=== PATIENT | female | born 1940 | race Caucasian/White ===

== ENCOUNTER 2017-11-26 11:23 | Inpatient (IN) | payer OTHER, MEDICARE ==
[2017-11-26] VITALS (7 sets, daily range): BP systolic 120–251; BP diastolic 57–117; PULSE 60–66; RESP 16–20; TEMP 97.3–97.9; O2SAT 97–100
[~2017-11-26] VITALS: Ht 152.4 cm; Wt 66.0 kg
[2017-11-26] MEDS ORDERED: IOHEXOL 350 MG/ML 10 ML VIAL (for RAD DIAG) IVCONTRAST ONE (11:24)
--- NOTE | 2017-11-26 12:12 | RADRPT ---
EXAM DATE/TIME: 11/26/2017 11:58 [facility] COMPARISON: No previous studies available for comparison. INDICATIONS : Left hip pain, no injury. MEDICAL HISTORY : None. SURGICAL HISTORY : None. ENCOUNTER: Initial ACUITY: 2 weeks PAIN SCORE: 10/10 LOCATION: Left hip, groin FINDINGS: Examination of the left hip was performed with AP Pelvis. No fracture. Mild osteoarthritis. The acet abulum is grossly intact. CONCLUSION: No acute fracture. Wicho Butler MD on November 26, 2017 at 12:10 Board Certified Radiologist. This report was verified electronically.
[2017-11-26] MEDS ORDERED: CARV12.52 PO (12:21)
[2017-11-26] MEDS ORDERED: NIFE30TA61 PO (12:21)
[2017-11-26] MEDS ORDERED: CHOL5000 PO (12:21)
--- NOTE | 2017-11-26 12:28 | PD ---
HPI Chief Complaint: Pain: Acute or Chronic Time Seen by Provider: 12:26 Travel History International Travel<30 days: No Contact w/Intl Traveler<30days: No Traveled to known affect area: No History of Present Illness HPI 77-year-old female presents to the emergency department with complaint of left hip pain since November 16 with worsening last night. Denies new or recent injury. Pain radiates to her groin area and to her left lower abdominal area. Denies nausea, vomiting, dysuria, hematuria, fevers. Reports having diarrhea this morning. Denies hematochezia. Denies chest pain, shortness of breath. Says she does have a headache. Has been taking Tylenol for symptom management, but it no longer works any longer. Has not taken any other medications to try any other treatments to alleviate her symptoms. Pain is constant. Worse with movement. No known relieving factors. Rates pain 10/10. Says the pain is "just there." No primary care provider. Allergies to statins. History of hypertension. History of open heart surgery and pacemaker. Takes Plavix. Her blood pressure is elevated in the ER and she says she thinks it is related to her pain. She did take her medication this morning. She denies chest pain, shortness of breath. She is complaining of headache. Patient has no other medical complaints. No other modifying factors or associated signs and symptoms. PFSH Past Medical History Cardiovascular Problems: Yes (CABG, pacemaker, HTN) Social History Tobacco Use: No Allergies-Medications (Allergen,Severity, Reaction): Coded Allergies: Ignnbcg-Dhv-Idd Reductase Inhibitor (Verified Allergy, Unknown, 11/26/17) lisinopril (Verified Allergy, Unknown, 11/26/17) Reported Meds & Prescriptions Reported Meds & Active Scripts Active Reported Bumetanide 2 Mg Tab 2 Mg PO DAILY Aspirin Children's (Aspirin) 81 Mg Chew 81 Mg CHEW DAILY Plavix (Clopidogrel Bisulfate) 75 Mg Tab 75 Mg PO DAILY Vitamin D3 (Cholecalciferol) 5,000 Unit Cap 5,000 Units PO DAILY Nifedipine ER 24 HR (Nifedipine) 30 Mg Tab 30 Mg PO DAILY Carvedilol 12.5 Mg Tab 12.5 Mg PO BID Review of Systems Except as stated in HPI: all other systems reviewed are Neg Physical Exam Narrative GENERAL: Well-nourished, well-developed female patient, in no acute distress; afebrile, nontoxic-appearing SKIN: Warm and dry. No rash noted to left hip, back, groin area. HEAD: Atraumatic. Normocephalic. EYES: Pupils equal and round. No scleral icterus. No injection or drainage. ENT: Mucosa pink and moist. Airway patent. NECK: Trachea midline. CARDIOVASCULAR: Regular rate and rhythm. No murmur appreciated. RESPIRATORY: No accessory muscle use. Lungs sounds clear and equal bilaterally. GASTROINTESTINAL: Abdomen soft, tenderness on palpation to the left lower quadrant, nondistended. Positive bowel sounds. No hepato-splenomegaly, or palpable masses. No guarding. No evidence of inguinal hernia lying down or standing up. MUSCULOSKELETAL: Left hip with full range of motion; without erythema, edema, or ecchymosis; without tenderness on abduction; I am unable to reproduce tenderness on palpation to the left posterior, lateral, anterior hip area; no tenderness on palpation to the left groin area; no obvious deformity; no leg length discrepancy. Patient ambulatory in the room and hallway with a normal gait. Left lower extremity is supple and non-tense with 2+ pedal pulse and sensory intact and without erythema or edema. NEUROLOGICAL: Awake and alert. Oriented 3. No obvious cranial nerve deficits. Motor grossly within normal limits. Normal speech. PSYCHIATRIC: Appropriate mood and affect; insight and judgment normal. Data Data Last Documented VS Vital Signs Date Time Temp Pulse Resp B/P (MAP) Pulse Ox O2 Delivery O2 Flow Rate FiO2 11/26/17 15:50 212/90 (130) 11/26/17 15:27 61 18 98 Room Air 11/26/17 11:35 97.3 Orders Orders Hip, Uni(Ap&Lat) W Ap Pelvis (11/26/17 ) Complete Blood Count With Diff (11/26/17 13:00) Comprehensive Metabolic Panel (11/26/17 13:00) Lipase (11/26/17 13:00) Prothrombin Time / Inr (Pt) (11/26/17 13:00) Act Partial Throm Time (Ptt) (11/26/17 13:00) Urinalysis - C+S If Indicated (11/26/17 13:00) Ct Abd/Pel W Iv Contrast(Rout) (11/26/17 13:00) Iv Access Insert/Monitor (11/26/17 13:00) Ondansetron Inj (Zofran Inj) (11/26/17 13:00) Sodium Chloride 0.9% Flush (Ns Flush) (11/26/17 13:00) Ketorolac Inj (Toradol Inj) (11/26/17 13:00) Sodium Chlorid 0.9% 500 Ml Inj (Ns 500 M (11/26/17 13:15) Acetaminophen 1000 Mg/100 Ml (Ofirmev 10 (11/26/17 14:00) Iohexol 350 Inj (Omnipaque 350 Inj) (11/26/17 11:24) Clonidine (Catapres) (11/26/17 16:00) Potassium Chloride (Kcl) (11/26/17 16:45) Morphine Inj (Morphine Inj) (11/26/17 16:45) Ondansetron Inj (Zofran Inj) (11/26/17 16:45) Admit Order (Ed Use Only) (11/26/17 16:50) Labs Laboratory Tests Test 11/26/17 13:15 11/26/17 13:30 Urine Color LIGHT-YELLOW Urine Turbidity CLEAR Urine pH 7.0 Urine Specific [place] 1.007 Urine Protein NEG mg/dL Urine Glucose (UA) NEG mg/dL Urine Ketones 10 mg/dL Urine Occult Blood NEG Urine Nitrite NEG Urine Bilirubin NEG Urine Urobilinogen LESS THAN 2.0 MG/DL Urine Leukocyte Esterase NEG Urine WBC LESS THAN 1 /hpf Urine Squamous Epithelial Cells 1 /hpf Microscopic Urinalysis Comment CULT NOT INDICATED White Blood Count 16.5 TH/MM3 Red Blood Count 6.22 MIL/MM3 Hemoglobin 17.6 GM/DL Hematocrit 52.2 % Mean Corpuscular Volume 84.0 FL Mean Corpuscular Hemoglobin 28.3 PG Mean Corpuscular Hemoglobin Concent 33.7 % Red Cell Distribution Width 15.9 % Platelet Count 285 TH/MM3 Mean Platelet Volume 9.5 FL Neutrophils (%) (Auto) 88.1 % Lymphocytes (%) (Auto) 6.0 % Monocytes (%) (Auto) 3.9 % Eosinophils (%) (Auto) 1.3 % Basophils (%) (Auto) 0.7 % Neutrophils # (Auto) 14.6 TH/MM3 Lymphocytes # (Auto) 1.0 TH/MM3 Monocytes # (Auto) 0.6 TH/MM3 Eosinophils # (Auto) 0.2 TH/MM3 Basophils # (Auto) 0.1 TH/MM3 CBC Comment DIFF FINAL Differential Comment Prothrombin Time 11.3 SEC Prothromb Time International Ratio 1.1 RATIO Activated Partial Thromboplast Time 25.8 SEC Blood Urea Nitrogen 24 MG/DL Creatinine 1.13 MG/DL Random Glucose 100 MG/DL Total Protein 8.3 GM/DL Albumin 4.2 GM/DL Calcium Level 9.4 MG/DL Alkaline Phosphatase 107 U/L Aspartate Amino Transf (AST/SGOT) 31 U/L Alanine Aminotransferase (ALT/SGPT) 27 U/L Total Bilirubin 1.3 MG/DL Sodium Level 139 MEQ/L Potassium Level 3.2 MEQ/L Chloride Level 102 MEQ/L Carbon Dioxide Level 22.5 MEQ/L Anion Gap 15 MEQ/L Estimat Glomerular Filtration Rate 46 ML/MIN Lipase 105 U/L MDM Medical Decision Making Medical Screen Exam Complete: Yes Emergency Medical Condition: Yes Medical Record Reviewed: Yes Differential Diagnosis Groin strain, hernia, arthritis, left hip pain, diverticulosis, hypertension Narrative Course 77-year-old female presents with continuing complaint of left hip/groin pain since November. Denies new or recent injury. I cannot exacerbate any pain to the left groin or hip on exam. Patient does have left lower quadrant abdominal pain on palpation on exam. I do not know if his pain is associated with her groin/left hip pain or if it referred pain. I will workup the patient for abdominal pain to rule out any acute findings. Patient's blood pressure is elevated in the ER. She has taken her blood pressure medication this morning. She denies chest pain, shortness of breath. She appears anxious and appears painful. She has history of open heart surgery, pacemaker and takes Plavix. CBC, CMP, lipase, urinalysis, CT abdomen/pelvis, 500 normal saline IV bolus ordered. I have for the patient morphine for her pain and she says it makes her vomit and she is scared to take it. Tylenol 1000 mg IV ordered. 1228: Left hip x-ray conclude: Hip and Pelvis X-Ray 11/26/17 0000 Signed Impressions: Service Date/Time: Sunday, November 26, 2017 11:58 - CONCLUSION: No acute fracture. Wicho Butler MD 1536: CT abdomen/pelvis conclude: Abdomen/Pelvis CT 4/23/18 1300 Signed Impressions: Service Date/Time: Sunday, November 26, 2017 15:01 - CONCLUSION: 1. Multiple mesenteric masses most characteristic of adenopathy. The largest measures up to 5 cm. There is of concern for lymphoma 2. Small retrocardiac hiatal hernia. 3. Status post median sternotomy. 4. The spleen is unremarkable. 5. Evidence of central canal stenosis at the L5-S1 level. Kayden Mackay MD Patient provided a copy of the radiology reports. Oncologist called. Discussed radiology findings with the patient. Patient is complaining of continued pain. She says she wants to try morphine. Morphine and Zofran ordered. 40meq KCL ordered. 1630: I spoke with Dr. De La Paz, oncologist and she recommended for the patient to be admitted for 23 hour observation. 1648: I spoke with KIRAN Zaragoza, and report given for patient admission. Physician Communication Physician Communication Dr. De La Paz, oncologist KIRAN Zaragoza Diagnosis Primary Impression: Osteoarthritis of left hip Qualified Codes: M16.12 - Unilateral primary osteoarthritis, left hip Additional Impressions: Left groin pain Mesenteric mass High blood pressure Qualified Codes: I10 - Essential (primary) hypertension Admitting Information Admitting Physician Requests: Observation Additional Instructions: Tylenol as directed and as needed for pain Ice and/or heat to affected area to help with pain and inflammation Avoid aggravating activity Increase activity as tolerated Walker/cane as needed for support Follow-up with orthopedics Follow-up with oncologist Follow-up with primary care provider Return to the emergency department immediately with worsening of symptoms Med/Other Pt SpecificInfo: Prescription(s) given Disposition: DISCHARGE HOME Condition: Stable Justine Moreno Nov 26, 2017 12:28
[2017-11-26] MEDS ORDERED: ONDANSETRON HCL 4 MG/2 ML VIAL IVP ONE (13:00)
[2017-11-26] MEDS ORDERED: SODIUM CHLORIDE 0.9% FLUSH 10 ML FLUSH IV FLUSH PRN ×2 (13:00→17:00)
[2017-11-26] MEDS ORDERED: KETOROLAC TROMETHAMINE 30 MG/ML (IVP) VIAL IVP ONE (13:00)
[2017-11-26] MEDS ORDERED: SODIUM CHLORID 0.9% 500 ML INJ 500 ML IV ONE (13:15)
[2017-11-26] MEDS ORDERED: ASPI81CH7 CHEW (13:52)
[2017-11-26] MEDS ORDERED: BUME2TAB PO (13:52)
[2017-11-26] MEDS ORDERED: PLAV75TA29 PO (13:52)
[2017-11-26 13:55] LABS: AUTOMATED NEUTROPHIL # 14.6 TH/MM3 (1.8-7.7); BASOPHIL # 0.1 TH/MM3 (0-0.2); BASOPHIL % 0.7 % (0.0-2.0); EOSINOPHIL # 0.2 TH/MM3 (0-0.4); EOSINOPHIL % 1.3 % (0.0-4.0); HEMATOCRIT 52.2 % (35.0-46.0); HEMOGLOBIN 17.6 GM/DL (11.6-15.3); MEAN CORPUSCULAR HEMOGLOBIN 28.3 PG (27.0-34.0); MEAN CORPUSCULAR HGB CONC 33.7 % (32.0-36.0); MEAN PLATELET VOLUME 9.5 FL (7.0-11.0); MONO % 3.9 % (0.0-8.0); MONOCYTE # 0.6 TH/MM3 (0-0.9); NEUT % 88.1 % (16.0-70.0); PLATELET COUNT 285 TH/MM3 (150-450); RED BLOOD COUNT 6.22 MIL/MM3 (4.00-5.30); RED CELL DISTRIBUTION WIDTH 15.9 % (11.6-17.2); WHITE BLOOD COUNT 16.5 TH/MM3 (4.0-11.0)
[2017-11-26] MEDS ORDERED: ACETAMINOPHEN 1000 MG/100 ML 100 ML IV ONE (14:00)
[2017-11-26 14:03] LABS: INTERNATIONAL NORMALIZED RATIO 1.1 RATIO
[2017-11-26 14:14] LABS: BILIRUBIN, URINE NEG (NEG); BLOOD, URINE NEG (NEG); GLUCOSE,URINE NEG (NEG); KETONE, URINE 10 mg/dL (NEG); NITRITE,URINE NEG (NEG); SQUAMOUS EPITHELIAL CELL URINE 1 /hpf (0-5); URINE COLOR LIGHT-YELLOW (YELLW/STRAW); URINE LEUKOCYTE ESTERASE NEG (NEG)
[2017-11-26 14:17] LABS: ALBUMIN 4.2 GM/DL (3.4-5.0); ALKALINE PHOSPHATASE 107 U/L (45-117); ALT (GPT) 27 U/L (10-53); AST (GOT) 31 U/L (15-37); BICARBONATE 22.5 MEQ/L (21.0-32.0); BLOOD UREA NITROGEN 24 MG/DL (7-18); CALCIUM 9.4 MG/DL (8.5-10.1); CHLORIDE 102 MEQ/L (98-107); CREATININE 1.13 MG/DL (0.50-1.00); GLOMERULAR FILTRATION RATE 46 ML/MIN (>89); GLUCOSE,RANDOM 100 MG/DL (74-106); SODIUM (NA) 139 MEQ/L (136-145); TOTAL BILIRUBIN ADULT 1.3 MG/DL (0.2-1.0); TOTAL PROTEIN 8.3 GM/DL (6.4-8.2)
[2017-11-26 14:18] LABS: PROTHROMBIN TIME - PATIENT 11.3 SEC (9.8-11.6)
--- NOTE | 2017-11-26 15:30 | RADRPT ---
EXAM DATE/TIME: 11/26/2017 15:01 [facility] COMPARISON: No previous studies available for comparison. INDICATIONS : Patient complains of abdominal pain. IV CONTRAST: 80 cc Omnipaque 350 (iohexol) IV ORAL CONTRAST: No oral contrast ingested. RADIATION DOSE: 7.09 CTDIvol (mGy) MEDICAL HISTORY : Cardiovascular disease. SURGICAL HISTORY : None. ENCOUNTER: Initial ACUITY: 1 day PAIN SCALE: 9/10 LOCATION: abdomen/pelvis TECHNIQUE: Volumetric scanning of the abdomen and pelvis was performed. Using automated exposure control and ad justment of the mA and/or kV according to patient size, radiation dose was kept as low as reasonably achievable to obtain optimal diagnostic quality images. DICOM format image data is available electro nically for review and comparison. FINDINGS: LOWER LUNGS: The patient is status post median sternotomy. The heart size is enlarged and there are postoperative changes. A transvenous pacer is noted in place. There is a small retrocardiac hiatal hernia. LIVER: Homogeneous density without lesion. There is no dilation of the biliary tree. No calcified gallston es. SPLEEN: Normal size without lesion. PANCREAS: Within normal limits. KIDNEYS: Normal in size and shape. There is no mass, stone or hydronephrosis. ADRENAL GLANDS: Within normal limits. VASCULAR: There is no aortic aneurysm. BOWEL/MESENTERY: No oral contrast was given limiting the sensitivity. There is a lobular mildly heterogeneous soft tis la mass in the anterior lower abdomen and upper pelvis. This measures up to approximately 4 x 2.9 x 5 cm in greatest diameter. There are several other adjacent nodular soft tissue areas in the left upp er pelvis and lower abdomen. The stomach, small bowel, and colon demonstrate no acute abnormality. T here is no free intraperitoneal air or fluid. ABDOMINAL WALL: Within normal limits. RETROPERITONEUM: There is no lymphadenopathy. BLADDER: No wall thickening or mass. REPRODUCTIVE: Within normal limits. INGUINAL: There is no lymphadenopathy or hernia. MUSCULOSKELETAL: Degenerative changes are noted in the lumbar spine with evidence of central canal stenosis at the L5- S1 level. CONCLUSION: 1. Multiple mesenteric masses most characteristic of adenopathy. The largest measures up to 5 cm. The re is of concern for lymphoma 2. Small retrocardiac hiatal hernia. 3. Status post median sternotomy. 4. The spleen is unremarkable. 5. Evidence of central canal stenosis at the L5-S1 level. Kayden Mackay MD on November 26, 2017 at 15:20 Board Certified Radiologist. This report was verified electronically.
[2017-11-26] MEDS ORDERED: cloNIDine HCL 0.2 MG TAB PO ONE (16:00)
--- NOTE | 2017-11-26 16:14 | PD ---
Data Data Last Documented VS Vital Signs Date Time Temp Pulse Resp B/P (MAP) Pulse Ox O2 Delivery O2 Flow Rate FiO2 11/26/17 15:50 212/90 (130) 11/26/17 15:27 61 18 98 Room Air 11/26/17 11:35 97.3 Orders Orders Hip, Uni(Ap&Lat) W Ap Pelvis (11/26/17 ) Complete Blood Count With Diff (11/26/17 13:00) Comprehensive Metabolic Panel (11/26/17 13:00) Lipase (11/26/17 13:00) Prothrombin Time / Inr (Pt) (11/26/17 13:00) Act Partial Throm Time (Ptt) (11/26/17 13:00) Urinalysis - C+S If Indicated (11/26/17 13:00) Ct Abd/Pel W Iv Contrast(Rout) (11/26/17 13:00) Iv Access Insert/Monitor (11/26/17 13:00) Ondansetron Inj (Zofran Inj) (11/26/17 13:00) Sodium Chloride 0.9% Flush (Ns Flush) (11/26/17 13:00) Ketorolac Inj (Toradol Inj) (11/26/17 13:00) Sodium Chlorid 0.9% 500 Ml Inj (Ns 500 M (11/26/17 13:15) Acetaminophen 1000 Mg/100 Ml (Ofirmev 10 (11/26/17 14:00) Iohexol 350 Inj (Omnipaque 350 Inj) (11/26/17 11:24) Clonidine (Catapres) (11/26/17 16:00) Labs Laboratory Tests Test 11/26/17 13:15 11/26/17 13:30 Urine Color LIGHT-YELLOW Urine Turbidity CLEAR Urine pH 7.0 Urine Specific [place] 1.007 Urine Protein NEG mg/dL Urine Glucose (UA) NEG mg/dL Urine Ketones 10 mg/dL Urine Occult Blood NEG Urine Nitrite NEG Urine Bilirubin NEG Urine Urobilinogen LESS THAN 2.0 MG/DL Urine Leukocyte Esterase NEG Urine WBC LESS THAN 1 /hpf Urine Squamous Epithelial Cells 1 /hpf Microscopic Urinalysis Comment CULT NOT INDICATED White Blood Count 16.5 TH/MM3 Red Blood Count 6.22 MIL/MM3 Hemoglobin 17.6 GM/DL Hematocrit 52.2 % Mean Corpuscular Volume 84.0 FL Mean Corpuscular Hemoglobin 28.3 PG Mean Corpuscular Hemoglobin Concent 33.7 % Red Cell Distribution Width 15.9 % Platelet Count 285 TH/MM3 Mean Platelet Volume 9.5 FL Neutrophils (%) (Auto) 88.1 % Lymphocytes (%) (Auto) 6.0 % Monocytes (%) (Auto) 3.9 % Eosinophils (%) (Auto) 1.3 % Basophils (%) (Auto) 0.7 % Neutrophils # (Auto) 14.6 TH/MM3 Lymphocytes # (Auto) 1.0 TH/MM3 Monocytes # (Auto) 0.6 TH/MM3 Eosinophils # (Auto) 0.2 TH/MM3 Basophils # (Auto) 0.1 TH/MM3 CBC Comment DIFF FINAL Differential Comment Prothrombin Time 11.3 SEC Prothromb Time International Ratio 1.1 RATIO Activated Partial Thromboplast Time 25.8 SEC Blood Urea Nitrogen 24 MG/DL Creatinine 1.13 MG/DL Random Glucose 100 MG/DL Total Protein 8.3 GM/DL Albumin 4.2 GM/DL Calcium Level 9.4 MG/DL Alkaline Phosphatase 107 U/L Aspartate Amino Transf (AST/SGOT) 31 U/L Alanine Aminotransferase (ALT/SGPT) 27 U/L Total Bilirubin 1.3 MG/DL Sodium Level 139 MEQ/L Potassium Level 3.2 MEQ/L Chloride Level 102 MEQ/L Carbon Dioxide Level 22.5 MEQ/L Anion Gap 15 MEQ/L Estimat Glomerular Filtration Rate 46 ML/MIN Lipase 105 U/L MDM Supervised Visit with EMILIE: Yes Narrative Course I, Dr. Blair, have reviewed the advance practice practitioner's documentation and am in agreement, met with the patient face to face, made the diagnosis, and the medical decision making was done by me. *My assessment and Findings: I evaluated this patient. I reviewed the entirety of her workup. CT shows lymphadenopathy suspicious for lymphoma. We are working on getting her some outpatient follow-up. I do not feel that she needs emergent inpatient care. She has soft benign nontender abdomen and not having any abdominal pain. She did come in with some left groin pain of unclear etiology. X-rays have been negative. Labs reasonably normal. The one sticking point at this point is her uncontrolled accelerated hypertension. We will get that more controlled prior to discharge.ROSIBEL Fletcher will discuss with oncology Diagnosis Primary Impression: Osteoarthritis of left hip Qualified Codes: M16.12 - Unilateral primary osteoarthritis, left hip Additional Impressions: Mesenteric mass Left groin pain Referrals: Orthopaedic Surgeon Primary Care Physician Patient Instructions: General Instructions, Osteoarthritis (ED), Abdominal Pain (ED), Groin Pain (ED), Hip Pain (ED) Additional Instruction: Tylenol as directed and as needed for pain Ice and/or heat to affected area to help with pain and inflammation Avoid aggravating activity Increase activity as tolerated Walker/cane as needed for support Follow-up with orthopedics Follow-up with oncologist Follow-up with primary care provider Return to the emergency department immediately with worsening of symptoms Disposition: 01 DISCHARGE HOME Condition: Stable Shayan Blair MD Nov 26, 2017 16:14
[2017-11-26] MEDS ORDERED: MORPHINE SULFATE 2 MG/ML SYRINGE IV PUSH ONE (16:45)
[2017-11-26] MEDS ORDERED: POTASSIUM CHLORIDE 20 MEQ CONTROLLED RELEASE TAB PO ONE (16:45)
[2017-11-26] MEDS ORDERED: ONDANSETRON HCL 4 MG/2 ML VIAL IV PUSH ONE (16:45)
[2017-11-26] MEDS ORDERED: ENALAPRILAT 1.25 MG/ML VIAL IV PUSH PRN ×2 (17:00→17:15)
[2017-11-26] MEDS ORDERED: ACETAMINOPHEN/HYDROcodone 325 MG/5 MG TAB PO PRN (17:00)
[2017-11-26] MEDS ORDERED: cloNIDine HCL 0.1 MG TAB PO PRN (17:00)
[2017-11-26] MEDS ORDERED: MAGNESIUM HYDROXIDE SUSP 30 ML CUP PO PRN (17:00)
[2017-11-26] MEDS ORDERED: NALOXONE HCL 0.4 MG/ML AMP IV PUSH PRN (17:00)
[2017-11-26] MEDS ORDERED: ONDANSETRON HCL 4 MG/2 ML VIAL IVP PRN (17:00)
--- NOTE | 2017-11-26 17:11 | HHI.HP ---
[facility] Service [facility] Primary Care Physician Non-Staff Admission Diagnosis Mesenteric masses Diagnoses: (1) Mesenteric mass Diagnosis: Principal (2) Hypertensive emergency (3) Left hip pain (4) Abdominal pain, left lower quadrant (5) Intractable pain Chief Complaint: Left hip pain Travel History International Travel<30 Days: No Contact w/Intl Traveler <30 Da: No Traveled to Known Affected Are: No History of Present Illness 77-year-old female with PMH of CABG, HTN, HLD, TIA, reduced renal function, and OA who presents to the ED with complaints of left hip pain. Patient is seen and examined in the ED friend at bedside with patients permission. She states that she noticed left hip pain on Sunday the . At first she thought it might have been related to the fact that she had hurt her right foot and was limping causing her to offload her weight on the left side. She was initially taking Tylenol with relief, however pain progressively became worse and worse to the point that she was unable to sleep last night. She repots pain as aching, rates it 10/10, movement and walking makes it worse, pain will go to her back and down the leg. The pain will also go to the left side of her abdomen. She repots vomiting earlier today around 3pm while in the ED. Patient also noticed that as of today she has been having bowel frequency, but denies any diarrhea, black stools or melena. While at home she denies any fevers, chills, nausea, vomiting , diarrhea, hematuria, weight loss, dizziness, lightheadedness, chest pain, or SOB. Patient states that she feels like after her CABG in October of 2016 things have not been the same. She has also noticed two abdominal masses that have appeared, one that she can find and point out at the time of my exam. Review of Systems Except as stated in HPI: all other systems reviewed are Neg Past Family Social History Past Medical History HTN HLD Reduced renal function TIA May 2013 OA Past Surgical History Tonsillectomy Cataract surgery August 2016 Hysterectomy (partial 1972) May of 2015 right arm stent ? not exactly sure October 2016 heart cath CABG X5 October 2016 with pacemaker placement in [facility] 2005 abdominal surgery due to wall repair ? not sure what Reported Medications Reported Meds & Active Scripts Active Reported Bumetanide 2 Mg Tab 2 Mg PO DAILY Aspirin Children's (Aspirin) 81 Mg Chew 81 Mg CHEW DAILY Plavix (Clopidogrel Bisulfate) 75 Mg Tab 75 Mg PO DAILY Vitamin D3 (Cholecalciferol) 5,000 Unit Cap 5,000 Units PO DAILY Nifedipine ER 24 HR (Nifedipine) 30 Mg Tab 30 Mg PO HS Carvedilol 12.5 Mg Tab 12.5 Mg PO BID Potassium 400mg daily Magnesium 500mg daily Allergies: Coded Allergies: Fyoppmv-Rsf-Ccg Reductase Inhibitor (Verified Allergy, Unknown, 11/26/17) lisinopril (Verified Allergy, Unknown, 11/26/17) Family History Dad: HTN Sister: CVA Brother: heart problems Brother: heart problems Social History Denies tobacco or illicit drug use Alcohol: glass of wine occasionally Lives alone In the process of moving her from [place], currently lives with daughter Physical Exam Vital Signs Vital Signs Date Time Temp Pulse Resp B/P (MAP) Pulse Ox O2 Delivery O2 Flow Rate FiO2 11/26/17 15:50 212/90 (130) 11/26/17 15:27 61 18 98 Room Air 11/26/17 11:35 97.3 66 20 251/117 (161) 97 Physical Exam GENERAL: This is a well-nourished, well-developed patient, in visible discomfort due to pain. SKIN: No rashes, ecchymoses or lesions. Cool and dry. HEAD: Atraumatic. Normocephalic. EYES: Pupils equal round and reactive. Extraocular motions intact. No scleral icterus. No injection or drainage. ENT: Nose without bleeding, purulent drainage. Throat without erythema. Uvula midline. Airway patent. NECK: Trachea midline. No JVD. Supple, nontender. CARDIOVASCULAR: Regular rate and rhythm without murmurs, gallops, or rubs. RESPIRATORY: Clear to auscultation. Breath sounds equal bilaterally. No wheezes , rales, or rhonchi. GASTROINTESTINAL: Abdomen soft, nondistended, normoactive bowel sounds. Palpable mass in epigastric area, firm with minimal mobility. Diffused tenderness with worse tenderness on suprapubic area. No guarding. MUSCULOSKELETAL: Extremities without clubbing, cyanosis, or edema. No joint tenderness, effusion, or edema noted. No calf tenderness. Mild tenderness of left lateral hip area. NEUROLOGICAL: Awake and alert x3. Cranial nerves II through XII intact. Motor and sensory grossly within normal limits. Five out of 5 muscle strength in all muscle groups. Normal speech. Laboratory Laboratory Tests Test 11/26/17 13:15 11/26/17 13:30 Urine Color LIGHT-YELLOW Urine Turbidity CLEAR Urine pH 7.0 Urine Specific [place] 1.007 Urine Protein NEG Urine Glucose (UA) NEG Urine Ketones 10 Urine Occult Blood NEG Urine Nitrite NEG Urine Bilirubin NEG Urine Urobilinogen LESS THAN 2.0 Urine Leukocyte Esterase NEG Urine WBC LESS THAN 1 Urine Squamous Epithelial Cells 1 Microscopic Urinalysis Comment CULT NOT INDICATED White Blood Count 16.5 Red Blood Count 6.22 Hemoglobin 17.6 Hematocrit 52.2 Mean Corpuscular Volume 84.0 Mean Corpuscular Hemoglobin 28.3 Mean Corpuscular Hemoglobin Concent 33.7 Red Cell Distribution Width 15.9 Platelet Count 285 Mean Platelet Volume 9.5 Neutrophils (%) (Auto) 88.1 Lymphocytes (%) (Auto) 6.0 Monocytes (%) (Auto) 3.9 Eosinophils (%) (Auto) 1.3 Basophils (%) (Auto) 0.7 Neutrophils # (Auto) 14.6 Lymphocytes # (Auto) 1.0 Monocytes # (Auto) 0.6 Eosinophils # (Auto) 0.2 Basophils # (Auto) 0.1 CBC Comment DIFF FINAL Differential Comment Prothrombin Time 11.3 Prothromb Time International Ratio 1.1 Activated Partial Thromboplast Time 25.8 Blood Urea Nitrogen 24 Creatinine 1.13 Random Glucose 100 Total Protein 8.3 Albumin 4.2 Calcium Level 9.4 Alkaline Phosphatase 107 Aspartate Amino Transf (AST/SGOT) 31 Alanine Aminotransferase (ALT/SGPT) 27 Total Bilirubin 1.3 Sodium Level 139 Potassium Level 3.2 Chloride Level 102 Carbon Dioxide Level 22.5 Anion Gap 15 Estimat Glomerular Filtration Rate 46 Lipase 105 Result Diagram: 11/26/17 1330 11/26/17 1330 Imaging Last Impressions Abdomen/Pelvis CT 11/26/17 1300 Signed Impressions: Service Date/Time: Sunday, November 26, 2017 15:01 - CONCLUSION: 1. Multiple mesenteric masses most characteristic of adenopathy. The largest measures up to 5 cm. There is of concern for lymphoma 2. Small retrocardiac hiatal hernia. 3. Status post median sternotomy. 4. The spleen is unremarkable. 5. Evidence of central canal stenosis at the L5-S1 level. Kayden Mackay MD Hip and Pelvis X-Ray 11/26/17 0000 Signed Impressions: Service Date/Time: Sunday, November 26, 2017 11:58 - CONCLUSION: No acute fracture. MD Zora Lewis VTE Risk Assessment Caprini VTE Risk Assessment: Mod/High Risk (score >= 2) Caprini Risk Assessment Model Point Value = 1 Point Value = 2 Point Value = 3 Point Value = 5 Age 41-60 Minor surgery BMI > 25 kg/m2 Swollen legs Varicose veins or History of unexplained or recurrent spontaneous Oral contraceptives or hormone replacement Sepsis (< 1 month) Serious lung disease, including pneumonia (< 1 month) Abnormal pulmonary function Acute myocardial infarction Congestive heart failure (< 1 month) History of inflammatory bowel disease Medical patient at bed rest Age 61-74 Arthroscopic surgery Major open surgery (> 45 min) Laparoscopic surgery (> 45 min) Malignancy Confined to bed (> 72 hours) Immobilizing plaster cast Central venous access Age >= 75 History of VTE Family history of VTE Factor V Leiden Prothrombin [id number] Lupus anticoagulant Anticardiolipin antibodies Elevated serum homocysteine Heparin-induced thrombocytopenia Other congenital or acquired thrombophilia Stroke (< 1 month) Elective arthroplasty Hip, pelvis, or leg fracture Acute spinal cord injury (< 1 month) Prophylaxis Regimen Total Risk Factor Score Risk Level Prophylaxis Regimen 0-1 Low Early ambulation 2 Moderate Order ONE of the following: *Sequential Compression Device (SCD) *Heparin 5000 units SQ BID 3-4 Higher Order ONE of the following medications: *Heparin 5000 units SQ TID *Enoxaparin/Lovenox 40 mg SQ daily (WT < 150 kg, CrCl > 30 mL/min) *Enoxaparin/Lovenox 30 mg SQ daily (WT < 150 kg, CrCl > 10-29 mL/min) *Enoxaparin/Lovenox 30 mg SQ BID (WT < 150 kg, CrCl > 30 mL/min) AND/OR *Sequential Compression Device (SCD) 5 or more Highest Order ONE of the following medications: *Heparin 5000 units SQ TID (Preferred with Epidurals) *Enoxaparin/Lovenox 40 mg SQ daily (WT < 150 kg, CrCl > 30 mL/min) *Enoxaparin/Lovenox 30 mg SQ daily (WT < 150 kg, CrCl > 10-29 mL/min) *Enoxaparin/Lovenox 30 mg SQ BID (WT < 150 kg, CrCl > 30 mL/min) AND *Sequential Compression Device (SCD) Assessment and Plan Assessment and Plan 77-year-old female with PMH of CABG, HTN, HLD, TIA, reduced renal function, and OA who presents to the ED with complaints of left hip pain. Intractable hip pain Multiple mesenteric masses - Hip/Pelvis x-ray reviewed, no acute fracture - Abdominal/pelvis CT reviewed, multiple mesenteric masses characteristic of adenopathy w/ largest 5cm, concern for lymphoma. Small retrocardiac hiatal hernia, and central canal stenosis at L5-S1 - CBC with elevated WBC's at 16.5, neutrophils 88.1, elevated H/H 17.6/52.2 - Consult Oncology for further workup, discussed with patient the fact of abnormal finding and need for admission - Pain control with PO [place], IV morphine for breakthrough pain, bowel regimen Hypertensive urgency - BP on admission 251/117 HR 66, most likely secondary to pain - Given Clonidine 0.2 PO X1 in ED - will resume home Bumex, Nifedipine, and Coreg - PRN Vasotec IV, and PO Clonidine Hx CABG w/pacer in place - >than 1 year since surgery, hold ASA and Plavix for possible biopsy in the future - BP control, does not tolerate statins Renal insufficiency Hypokalemia - BUN 24, creatinine 1.13, GFR 46 - Given 40meq of KCL in the ED - Avoid nephrotoxins, monitor renal function, no baseline to compare from DVT prophylaxis- subq Heparin Discussed Condition With Patient and Dr.D. Powell Physician Certification 2 Midnight Certification Type: Admission for Inpatient Services Order for Inpatient Services The services are ordered in accordance with Medicare regulations or non- Medicare payer requirements, as applicable. In the case of services not specified as inpatient-only, they are appropriately provided as inpatient services in accordance with the 2-midnight benchmark. Estimated LOS (days): 4 days is the estimated time the patient will need to remain in the hospital, assuming treatment plan goals are met and no additional complications. Post-Hospital Plan: Not yet determined Ryann Rooney Nov 26, 2017 17:11
[2017-11-26] MEDS ORDERED: MORPHINE SULFATE 2 MG/ML SYRINGE IV PUSH PRN (18:00)
[2017-11-26] MEDS ORDERED: POTASSIUM CHLORIDE 20 MEQ PWD PACKET PO ONE (18:00)
[2017-11-26] MEDS: ACETAMINOPHEN/HYDROcodone 325 MG/10 MG TAB PO PRN (18:29)
--- NOTE | 2017-11-26 20:50 | EKG ---
Date Performed: 11/26/2017 Time Performed: 12:15:30 PTAGE: 77 years EKG: ELECTRONIC VENTRICULAR PACEMAKER ABNORMAL RHYTHM ECG NO PREVIOUS TRACING DOCTOR: Cristobal Dunne Interpretating Date/Time 11/26/2017 20:50:17
[2017-11-26] MEDS: DOCUSATE SODIUM 50 MG/SENNA 8.6 MG TAB PO SCH (20:52)
[2017-11-26] MEDS: SODIUM CHLORIDE 0.9% FLUSH 10 ML FLUSH IV FLUSH SCH (20:52)
[2017-11-26] MEDS: NIFEdipine 30 MG SUSTAINED RELEASE TAB PO SCH (21:23)
[2017-11-26] MEDS: CARVEDILOL 12.5 MG TAB PO SCH (21:23)
[2017-11-26] MEDS: HEPARIN SODIUM - SQ 10,000 UNITS/ML VIAL SQ SCH (21:25)
[2017-11-27] VITALS (8 sets, daily range): BP systolic 123–188; BP diastolic 56–93; PULSE 60–78; RESP 16–18; TEMP 97.5–98.3; O2SAT 93–99
[2017-11-27 07:02] LABS: AUTOMATED NEUTROPHIL # 8.3 TH/MM3 (1.8-7.7); BASOPHIL # 0.1 TH/MM3 (0-0.2); BASOPHIL % 1.1 % (0.0-2.0); EOSINOPHIL # 0.3 TH/MM3 (0-0.4); EOSINOPHIL % 2.6 % (0.0-4.0); HEMATOCRIT 45.3 % (35.0-46.0); HEMOGLOBIN 15.2 GM/DL (11.6-15.3); LYMPH % 11.2 % (9.0-44.0); LYMPHOCYTE # 1.2 TH/MM3 (1.0-4.8); MEAN CELL VOLUME 84.4 FL (80.0-100.0); MEAN CORPUSCULAR HEMOGLOBIN 28.2 PG (27.0-34.0); MEAN CORPUSCULAR HGB CONC 33.4 % (32.0-36.0); MEAN PLATELET VOLUME 9.5 FL (7.0-11.0); MONO % 5.5 % (0.0-8.0); MONOCYTE # 0.6 TH/MM3 (0-0.9); NEUT % 79.6 % (16.0-70.0); PLATELET COUNT 210 TH/MM3 (150-450); RED BLOOD COUNT 5.37 MIL/MM3 (4.00-5.30); RED CELL DISTRIBUTION WIDTH 16.2 % (11.6-17.2); WHITE BLOOD COUNT 10.4 TH/MM3 (4.0-11.0)
[2017-11-27 07:22] LABS: CARCINOEMBRYONIC ANTIGEN 0.4 NG/ML (0.2-5.0)
[2017-11-27 07:24] LABS: ALBUMIN 3.2 GM/DL (3.4-5.0); ALKALINE PHOSPHATASE 89 U/L (45-117); ALT (GPT) 21 U/L (10-53); AST (GOT) 19 U/L (15-37); BICARBONATE 25.2 MEQ/L (21.0-32.0); BLOOD UREA NITROGEN 25 MG/DL (7-18); CALCIUM 8.5 MG/DL (8.5-10.1); CHLORIDE 103 MEQ/L (98-107); CREATININE 1.31 MG/DL (0.50-1.00); GLOMERULAR FILTRATION RATE 39 ML/MIN (>89); GLUCOSE,RANDOM 89 MG/DL (74-106); SODIUM (NA) 139 MEQ/L (136-145); TOTAL PROTEIN 6.8 GM/DL (6.4-8.2)
--- NOTE | 2017-11-27 07:52 | MB ---
cc: Jordan Lamb MD DATE: 11/26/2017 REASON FOR CONSULTATION: Consult requested by hospitalist for evaluation of abdominal masses. HISTORY OF PRESENT ILLNESS: Luana is a 77-year-old, very pleasant white female. She has a history of hypertension, hypercholesterolemia, TIA and coronary artery disease. She underwent coronary artery bypass surgery in 10/2016. She states that since then her health has been declining. The patient came into the emergency room complaining of severe left hip pain. The pain started last week and she took [id number] medication, but the pain was not improving. She states that the pain was so severe that she could not go to sleep. She came into the emergency room for further evaluation. The patient underwent an x-ray of the hip and pelvis, which showed no acute fracture. She had a CT of the abdomen and pelvis with IV contrast due to the complaint of abdominal pain. This showed a 5 cm soft tissue mass in the left abdomen and upper pelvis. There are several other adjacent nodular soft tissue masses noted in the left upper pelvis and lower abdomen. The stomach, small bowel and colon showed no acute abnormality. Due to the abdominal masses, I have been asked to see her for further evaluation. The patient denies any fever or weight loss. She denies any night sweats, but she states that this morning when she woke up, she was sweating. She has been having abdominal and epigastric discomfort on and off. She noticed a lump in the epigastric area which actually turned out to be xiphoid process of the sternum. The rest of the review of systems is negative. PAST MEDICAL HISTORY: Hypertension, TIA, arthritis, coronary artery disease, hypercholesterolemia. PAST SURGICAL HISTORY: Coronary artery bypass surgery, hysterectomy, cataracts, tonsillectomy, cardiac catheterization, abdominal hernia repair. ALLERGIES: STATINS AND LISINOPRIL. MEDICATIONS PRIOR TO COMING TO THE HOSPITAL: 1. Bumex. 2. Aspirin. 3. Plavix. 4. Nifedipine. 5. Carvedilol. 6. Potassium. 7. Magnesium. FAMILY HISTORY: None for malignancy. SOCIAL HISTORY: She does not smoke cigarettes and occasionally drinks alcohol. PHYSICAL EXAMINATION: GENERAL: A well-developed, well-nourished, elderly white female in no apparent distress. VITAL SIGNS: Temperature 97.6, heart rate 63, blood pressure 184/116, O2 saturation 98%. HEAD, EYES, EARS, NOSE, AND THROAT: Pupils equal, round, reactive to light and accommodation, extraocular movements intact. Anicteric. No oral lesions noted. No thrush noted. NECK: Supple. No JVD. No masses noted. LUNGS: Clear. No wheezing, rhonchi, or rales. HEART: Regular rate and rhythm. No murmur heard. ABDOMEN: Soft and nontender. No hepatosplenomegaly. No abnormal bowel sounds. No guarding or rigidity noted. EXTREMITIES: No pedal edema. No cyanosis, no clubbing. NEUROLOGIC: Awake, alert, oriented x 3. Sensory and motor seem to be intact. SKIN: No bruises or petechiae noted. LYMPH NODES: No cervical, supraclavicular, or axillary lymphadenopathy noted. BACK: There is no spinal tenderness noted. ASSESSMENT AND PLAN: 1. Soft tissue abdominal masses highly suspicious for lymphoma until proven otherwise. 2. Leukocytosis with neutrophilia and polycythemia most likely due to a reactive process. Certainly myeloproliferative disorder cannot be ruled out at this time. PLAN: I have reviewed her available records and I had an extensive discussion with the patient regarding the CAT scan of the abdomen and pelvis findings. This showed multiple soft tissue masses in the abdomen, the largest is 5 cm. The patient does not have any palpable cervical, axillary, or inguinal lymphadenopathy to do the biopsy. Therefore, I will get the CAT scan of the chest to evaluate for any lymphadenopathy. I will also get the tumor markers CA 19-9, CEA, CA-125 and LDH. Based on the CAT scan of the chest and tumor marker results, we will decide about the biopsy to get the tissue diagnosis. Recommend to repeat the CBC tomorrow, and if polycythemia persists, then I will order the workup for the myeloproliferative disorder. Further recommendations based on her hospital stay. Thank you for asking my opinion. MD WALLY Stubbs/TRISHA , 12:22 AM , 07:51 AM MTDGely
[2017-11-27] MEDS: CARVEDILOL 12.5 MG TAB PO SCH ×2 (08:03→20:25)
[2017-11-27] MEDS: DOCUSATE SODIUM 50 MG/SENNA 8.6 MG TAB PO SCH ×2 (08:04→20:25)
[2017-11-27] MEDS: HEPARIN SODIUM - SQ 10,000 UNITS/ML VIAL SQ SCH ×2 (08:04→20:25)
[2017-11-27] MEDS: ACETAMINOPHEN/HYDROcodone 325 MG/10 MG TAB PO PRN (08:04)
[2017-11-27] MEDS: CHOLECALCIFEROL (VIT D3) 5000 UNIT CAP PO SCH (08:04)
[2017-11-27] MEDS: SODIUM CHLORIDE 0.9% FLUSH 10 ML FLUSH IV FLUSH SCH ×2 (08:05→20:25)
[2017-11-27 08:17] LABS: CA 125 3.7 U/ML (0.0-30.2)
[2017-11-27 08:18] LABS: CA 19-9 4.3 U/ML (0.0-35.0)
[2017-11-27] MEDS ORDERED: NIFEdipine 30 MG SUSTAINED RELEASE TAB PO SCH (09:00)
[2017-11-27] MEDS ORDERED: BUMETANIDE 1 MG TAB PO SCH (09:00)
--- NOTE | 2017-11-27 12:23 | PD.ONC.PN ---
Subjective Subjective Remarks Afebrile overnight. Patient resting in bed in nad. States the [place] she took this AM made her vomit. she took morphine mixed with zofran last night and that did not make her nauseated. she is waiting to go down for CT thorax. Objective Data Date Time Temp Pulse Resp B/P (MAP) Pulse Ox O2 Delivery O2 Flow Rate FiO2 11/27/17 12:04 97.7 60 18 156/67 (96) 95 11/27/17 09:21 128/72 (90) 11/27/17 07:51 97.5 62 18 188/78 (114) 93 11/27/17 05:32 98.2 60 18 123/56 (78) 95 11/26/17 23:56 64 18 120/57 (78) 97 11/26/17 20:50 97.9 60 18 155/69 (97) 97 Manual Cuff/Auscultation 11/26/17 18:32 97.6 63 16 184/116 (138) 98 11/26/17 17:27 61 18 158/84 (108) 100 Room Air 11/26/17 15:50 212/90 (130) 11/26/17 15:27 61 18 98 Room Air 11/27/17 11/27/17 11/27/17 07:00 15:00 23:00 Intake Total 250 ml Balance 250 ml Result Diagram: 11/27/17 0535 11/27/17 0554 Laboratory Results Laboratory Tests Test 11/26/17 13:15 11/26/17 13:30 11/27/17 05:35 11/27/17 05:54 Urine Color LIGHT-YELLOW Urine Turbidity CLEAR Urine pH 7.0 Urine Specific [place] 1.007 Urine Protein NEG mg/dL Urine Glucose (UA) NEG mg/dL Urine Ketones 10 mg/dL Urine Occult Blood NEG Urine Nitrite NEG Urine Bilirubin NEG Urine Urobilinogen LESS THAN 2.0 MG/DL Urine Leukocyte Esterase NEG Urine WBC LESS THAN 1 /hpf Urine Squamous Epithelial Cells 1 /hpf Microscopic Urinalysis Comment CULT NOT INDICATED White Blood Count 16.5 TH/MM3 10.4 TH/MM3 Red Blood Count 6.22 MIL/MM3 5.37 MIL/MM3 Hemoglobin 17.6 GM/DL 15.2 GM/DL Hematocrit 52.2 % 45.3 % Mean Corpuscular Volume 84.0 FL 84.4 FL Mean Corpuscular Hemoglobin 28.3 PG 28.2 PG Mean Corpuscular Hemoglobin Concent 33.7 % 33.4 % Red Cell Distribution Width 15.9 % 16.2 % Platelet Count 285 TH/MM3 210 TH/MM3 Mean Platelet Volume 9.5 FL 9.5 FL Neutrophils (%) (Auto) 88.1 % 79.6 % Lymphocytes (%) (Auto) 6.0 % 11.2 % Monocytes (%) (Auto) 3.9 % 5.5 % Eosinophils (%) (Auto) 1.3 % 2.6 % Basophils (%) (Auto) 0.7 % 1.1 % Neutrophils # (Auto) 14.6 TH/MM3 8.3 TH/MM3 Lymphocytes # (Auto) 1.0 TH/MM3 1.2 TH/MM3 Monocytes # (Auto) 0.6 TH/MM3 0.6 TH/MM3 Eosinophils # (Auto) 0.2 TH/MM3 0.3 TH/MM3 Basophils # (Auto) 0.1 TH/MM3 0.1 TH/MM3 CBC Comment DIFF FINAL DIFF FINAL Differential Comment Prothrombin Time 11.3 SEC Prothromb Time International Ratio 1.1 RATIO Activated Partial Thromboplast Time 25.8 SEC Blood Urea Nitrogen 24 MG/DL 25 MG/DL Creatinine 1.13 MG/DL 1.31 MG/DL Random Glucose 100 MG/DL 89 MG/DL Total Protein 8.3 GM/DL 6.8 GM/DL Albumin 4.2 GM/DL 3.2 GM/DL Calcium Level 9.4 MG/DL 8.5 MG/DL Alkaline Phosphatase 107 U/L 89 U/L Aspartate Amino Transf (AST/SGOT) 31 U/L 19 U/L Alanine Aminotransferase (ALT/SGPT) 27 U/L 21 U/L Total Bilirubin 1.3 MG/DL 1.0 MG/DL Sodium Level 139 MEQ/L 139 MEQ/L Potassium Level 3.2 MEQ/L 3.1 MEQ/L Chloride Level 102 MEQ/L 103 MEQ/L Carbon Dioxide Level 22.5 MEQ/L 25.2 MEQ/L Anion Gap 15 MEQ/L 11 MEQ/L Estimat Glomerular Filtration Rate 46 ML/MIN 39 ML/MIN Lipase 105 U/L Carcinoembryonic Antigen 0.4 NG/ML CA 19-9 Antigen 4.3 U/ML CA 125 Antigen 3.7 U/ML Lactate Dehydrogenase 268 U/L Imaging Studies Last 24 hours Impressions Abdomen/Pelvis CT 11/26/17 1300 Signed Impressions: Service Date/Time: Sunday, November 26, 2017 15:01 - CONCLUSION: 1. Multiple mesenteric masses most characteristic of adenopathy. The largest measures up to 5 cm. There is of concern for lymphoma 2. Small retrocardiac hiatal hernia. 3. Status post median sternotomy. 4. The spleen is unremarkable. 5. Evidence of central canal stenosis at the L5-S1 level. Kayden Mackay MD Administered Medications Medications (Trade) Dose Ordered Sig/Mariela Route PRN Reason Start Time Stop Time Status Last Admin Dose Admin Sodium Chloride (NS Flush) 2 ml BID IV FLUSH 11/26/17 21:00 11/27/17 08:05 Acetaminophen/ Hydrocodone Bitart ([place] 10-325 Mg) 1 tab Q4H PRN PO PAIN SCALE 6 TO 10 11/26/17 17:00 11/27/17 08:04 Bumetanide (Bumetanide) 2 mg DAILY PO 11/27/17 09:00 11/27/17 08:04 Carvedilol (Coreg) 12.5 mg BID PO 11/26/17 21:00 11/27/17 08:03 Cholecalciferol (Vitamin D3) 5,000 units DAILY PO 11/27/17 09:00 11/27/17 08:04 Nifedipine (Procardia Xl) 30 mg HS PO 11/26/17 21:00 11/26/17 21:23 Heparin Sodium (Porcine) (Heparin Inj) 5,000 units Q12HR SQ 11/26/17 21:00 11/27/17 08:04 Senna/Docusate Sodium ([place]ing[place]-Colace) 1 tab BID PO 11/26/17 21:00 11/27/17 08:04 Objective Remarks GENERAL: Pleasant elderly female, sitting up in bed in nad. SKIN: Warm and dry. HEAD: Normocephalic. EYES: No injection or drainage. NECK: Supple, trachea midline. CARDIOVASCULAR: Regular rate and rhythm RESPIRATORY: Breath sounds equal bilaterally. No accessory muscle use. GASTROINTESTINAL: Abdomen soft, mildly tender around left lower quadrant, nondistended. EXTREMITIES: No cyanosis NEUROLOGICAL: No obvious focal deficit. Assessment/Plan Problem List: (1) Mesenteric mass ICD Codes: K63.9 - Disease of intestine, unspecified Status: Acute Plan: 11/27: await CT chest. will need to consult invasive radiology or surgeon based on CT chest findings. will transfer to oncology --CT a/p showed multiple soft tissue masses in the abdomen, the largest is 5 cm. --no palpable LAD --findings consistent with lymphoma until proven otherwise. Assessment 77y/o female with abdominal masses, concerned for lymphoma. history of hypertension, hypercholesterolemia, TIA and coronary artery disease. s/p coronary artery bypass surgery in 10/2016. Attending Statement The exam, history, and the medical decision-making described in the above note were completed with the assistance of the mid-level provider. I reviewed and agree with the findings presented. I attest that I had a [id number] encounter with the patient on the same day, and personally performed and documented my assessment and findings in the medical record. No new c/o CT chest = No LAD Consult surgery for laproscopic bx of abd soft tissue mass. Prelimnary dx is lymphoma. Tumor markers ( ca125, ca 19-9, CEA ) are normal. after the bx pt can be d/c and follow as outpt Tri Z[place]ala Nov 27, 2017 12:23 Torin Lamb MD Nov 27, 2017 22:58
[2017-11-27] MEDS ORDERED: POTASSIUM CHLORIDE 25 MEQ EFFERVESCENT TAB PO ONE (13:45)
[2017-11-27] MEDS ORDERED: MORPHINE SULFATE 2 MG/ML SYRINGE IV PUSH PRN (14:00)
--- NOTE | 2017-11-27 14:00 | HHI.PR ---
Subjective Remarks The patient wanted to go home. She wanted to know when she would get her chest CT. She still had a lot of pain in her lower abdomen. She says pain meds make her nauseous. Discussed with nursing. Objective Vitals Vital Signs Date Time Temp Pulse Resp B/P (MAP) Pulse Ox O2 Delivery O2 Flow Rate FiO2 11/27/17 12:04 97.7 60 18 156/67 (96) 95 11/27/17 09:21 128/72 (90) 11/27/17 07:51 97.5 62 18 188/78 (114) 93 11/27/17 05:32 98.2 60 18 123/56 (78) 95 11/26/17 23:56 64 18 120/57 (78) 97 11/26/17 20:50 97.9 60 18 155/69 (97) 97 Manual Cuff/Auscultation 11/26/17 18:32 97.6 63 16 184/116 (138) 98 11/26/17 17:27 61 18 158/84 (108) 100 Room Air 11/26/17 15:50 212/90 (130) 11/26/17 15:27 61 18 98 Room Air I/O 11/26/17 11/26/17 11/26/17 11/27/17 11/27/17 11/27/17 07:00 15:00 23:00 07:00 15:00 23:00 Intake Total 500 ml 250 ml Balance 500 ml 250 ml Intake Oral 250 ml IV Total 500 ml # Voids 2 Result Diagram: 11/27/17 0535 11/27/17 0554 Imaging Last Impressions Abdomen/Pelvis CT 11/26/17 1300 Signed Impressions: Service Date/Time: Sunday, November 26, 2017 15:01 - CONCLUSION: 1. Multiple mesenteric masses most characteristic of adenopathy. The largest measures up to 5 cm. There is of concern for lymphoma 2. Small retrocardiac hiatal hernia. 3. Status post median sternotomy. 4. The spleen is unremarkable. 5. Evidence of central canal stenosis at the L5-S1 level. Kayden Mackay MD Hip and Pelvis X-Ray 11/26/17 0000 Signed Impressions: Service Date/Time: Sunday, November 26, 2017 11:58 - CONCLUSION: No acute fracture. Wicho Butler MD Objective Remarks GENERAL: This is a well-nourished, well-developed patient, in NAD. SKIN: No rashes, ecchymoses or lesions. Cool and dry. HEAD: Atraumatic. Normocephalic. EYES: Pupils equal round and reactive. Extraocular motions intact. No scleral icterus. No injection or drainage. ENT: Nose without bleeding, purulent drainage. Throat without erythema. Uvula midline. Airway patent. NECK: Trachea midline. No JVD. Supple, nontender. CARDIOVASCULAR: Regular rate and rhythm without murmurs, gallops, or rubs. RESPIRATORY: Clear to auscultation. Breath sounds equal bilaterally. No wheezes , rales, or rhonchi. GASTROINTESTINAL: Abdomen soft, nondistended, normoactive bowel sounds. Minimal tenderness in the suprapubic area. No guarding. MUSCULOSKELETAL: Extremities without clubbing, cyanosis, or edema. No joint tenderness, effusion, or edema noted. NEUROLOGICAL: Awake and alert x3. Cranial nerves II through XII intact. Motor and sensory grossly within normal limits. Five out of 5 muscle strength in all muscle groups. Normal speech. PSYCH: Mood and affect appropriate. Medications and IVs Current Medications Medications (Trade) Dose Ordered Sig/Mariela Route Start Time Stop Time Status Last Admin (NS Flush) 2 ml UNSCH PRN IV FLUSH 11/26/17 17:00 (NS Flush) 2 ml BID IV FLUSH 11/26/17 21:00 11/27/17 08:05 (Narcan Inj) 0.4 mg UNSCH PRN IV PUSH 11/26/17 17:00 (Milk Of Magnesia Liq) 30 ml Q12H PRN PO 11/26/17 17:00 (Catapres) 0.1 mg Q6H PRN PO 11/26/17 17:00 (Bumetanide) 2 mg DAILY PO 11/27/17 09:00 Future Hold 11/27/17 08:04 (Coreg) 12.5 mg BID PO 11/26/17 21:00 11/27/17 08:03 (Vitamin D3) 5,000 units DAILY PO 11/27/17 09:00 11/27/17 08:04 (Procardia Xl) 30 mg HS PO 11/26/17 21:00 11/26/17 21:23 (Heparin Inj) 5,000 units Q12HR SQ 11/26/17 21:00 11/27/17 08:04 (Morphine Inj) 2 mg Q4H PRN IV PUSH 11/26/17 18:00 (Dominga-Colace) 1 tab BID PO 11/26/17 21:00 11/27/17 08:04 (Zofran Inj) 4 mg Q6HR PRN IV PUSH 11/27/17 12:30 (Morphine Inj) 2 mg Q4H PRN IV PUSH 11/27/17 14:00 UNV A/P Problem List: (1) Mesenteric mass ICD Code: K63.9 - Disease of intestine, unspecified Status: Acute (2) Hypertensive emergency ICD Code: I16.1 - Hypertensive emergency (3) Left hip pain ICD Code: M25.552 - Pain in left hip Status: Acute (4) Abdominal pain, left lower quadrant ICD Code: R10.32 - Left lower quadrant pain Status: Acute (5) Intractable pain ICD Code: R52 - Pain, unspecified Assessment and Plan Intractable hip pain/ Multiple mesenteric masses Hip/Pelvis x-ray reviewed, no acute fracture. Abdominal/pelvis CT: multiple mesenteric masses characteristic of adenopathy w/ largest 5cm, concerning for lymphoma; Small retrocardiac hiatal hernia, and central canal stenosis at L5- S1. Oncology consult appreciated. - CT chest pending. Will likely need biopsy. - Pain control with IV morphine/ Zofran as other pain meds make her nauseous. - transfer to oncology floor per oncology. Hypertensive urgency BP on admission 251/117 HR 66, most likely secondary to pain. Improved. - continue home Nifedipine and Coreg. - PRN Vasotec IV, and PO Clonidine. - pain control. Hx CABG w/pacer in place > than 1 year since surgery. - hold ASA and Plavix for possible biopsy. - BP control, does not tolerate statins. Renal insufficiency/ Hypokalemia Exacerbated by Bumex. - hold Bumex. - replete potassium and monitor BMP. - Avoid nephrotoxins. DVT prophylaxis- subq Heparin Discharge Planning Await oncology clearance. Needs better pain control. Kayden Waddell DO Nov 27, 2017 14:00
[2017-11-27] MEDS: ONDANSETRON HCL 4 MG/2 ML VIAL IV PUSH PRN ×2 (14:03→21:56)
[2017-11-27] MEDS ORDERED: PROCHLORPERAZINE INJ 10 MG/2 ML VIAL IV PUSH ONE (16:30)
[2017-11-27] MEDS ORDERED: IODIXANOL 320 MG/ML 10 ML VIAL (for Rad CT) IVCONTRAST ONE (18:50)
[2017-11-27] MEDS: NIFEdipine 30 MG SUSTAINED RELEASE TAB PO SCH (20:25)
--- NOTE | 2017-11-27 21:43 | RADRPT ---
EXAM DATE/TIME: 11/27/2017 18:39 [facility] COMPARISON: CT ABDOMEN & PELVIS W CONTRAST, November 26, 2017, 15:01. INDICATIONS : Enlarged lymph nodes, Mesenteric masses IV CONTRAST: 45 cc Visipaque (iodixanol) IV RADIATION DOSE: 5.93 CTDIvol (mGy) MEDICAL HISTORY : Hypertension. SURGICAL HISTORY : CABG Pacemaker.Hysterectomy. ENCOUNTER: Initial ACUITY: 1 day PAIN SCALE: 3/10 LOCATION: chest TECHNIQUE: Volumetric scanning of the chest was performed. Using automated exposure control and adjustment of t he mA and/or kV according to patient size, radiation dose was kept as low as reasonably achievable to obtain optimal diagnostic quality images. DICOM format image data is available electronically for review and comparison. Follow-up recommendations for detected pulmonary nodules are based at a minimum on nodule size and pa tient risk factors according to Fleischner Society Guidelines. FINDINGS: LUNGS: Trace basilar atelectasis. There is no pneumonic consolidation or pneumothorax. No concerning pulmon yonas nodule is visualized. PLEURA: There is no pleural thickening or pleural effusion. MEDIASTINUM: The heart and great vessels demonstrate no acute abnormality. There is no mediastinal or hilar lymph adenopathy. Small hiatal hernia. Fluid-filled esophagus. Biatrial cardiac enlargement. Patient has pope d previous median sternotomy. Cardiac pacer present. AXILLAE: Within normal limits. No lymphadenopathy. SKELETAL: No acute bony abnormality demonstrated. MISCELLANEOUS: The visualized upper abdominal organs demonstrate no acute abnormality. CONCLUSION: 1. There is no lymphadenopathy of the chest. 2. Small hiatal hernia. Suspected gastroesophageal reflux disease. 3. Trace atelectasis of both lung bases. No pneumonia. David Pereira MD on November 27, 2017 at 21:39 Board Certified Radiologist. This report was verified electronically.
[2017-11-27] MEDS: MORPHINE SULFATE 4 MG/ML INJ IV PRN (21:57)
[2017-11-28] VITALS (9 sets, daily range): BP systolic 147–179; BP diastolic 64–77; PULSE 60–73; RESP 18–20; TEMP 97.6–98.5; O2SAT 92–96
[2017-11-28] MEDS: MORPHINE SULFATE 4 MG/ML INJ IV PRN ×2 (06:37→13:15)
[2017-11-28] MEDS: ONDANSETRON HCL 4 MG/2 ML VIAL IV PUSH PRN (06:37)
[2017-11-28 09:44] LABS: CALCIUM 9.1 MG/DL (8.5-10.1); CREATININE 1.04 MG/DL (0.50-1.00); MAGNESIUM 2.3 MG/DL (1.5-2.5)
[2017-11-28] MEDS: DOCUSATE SODIUM 50 MG/SENNA 8.6 MG TAB PO SCH ×2 (10:18→21:39)
[2017-11-28] MEDS: SODIUM CHLORIDE 0.9% FLUSH 10 ML FLUSH IV FLUSH SCH ×2 (10:18→21:41)
[2017-11-28] MEDS: CARVEDILOL 12.5 MG TAB PO SCH ×2 (10:18→21:39)
[2017-11-28] MEDS: CHOLECALCIFEROL (VIT D3) 5000 UNIT CAP PO SCH (10:18)
--- NOTE | 2017-11-28 12:47 | PD.ONC.PN ---
Subjective Subjective Remarks Afebrile Patient reports she has pain in the left lower quadrant Relieved with morphine States she is no longer having nausea as long she takes Zofran prior to the narcotic Hoping to go home tomorrow after biopsy Objective Data Date Time Temp Pulse Resp B/P (MAP) Pulse Ox O2 Delivery O2 Flow Rate FiO2 11/28/17 05:08 98.0 61 18 147/70 (95) 92 11/28/17 04:16 63 11/28/17 01:32 61 11/28/17 01:25 97.9 60 18 159/72 (101) 92 11/27/17 22:31 97.6 63 18 175/76 (109) 99 11/27/17 21:42 98.3 60 16 156/57 (90) 94 11/27/17 20:11 98.3 70 16 137/93 (108) 95 11/27/17 15:19 98.2 63 18 133/68 (89) 95 11/28/17 11/28/17 11/28/17 07:00 15:00 23:00 Output Total 300 ml Balance -300 ml Result Diagram: 11/27/17 0535 11/28/17 0753 Laboratory Results Laboratory Tests Test 11/28/17 07:53 Blood Urea Nitrogen 22 MG/DL Creatinine 1.04 MG/DL Random Glucose 93 MG/DL Calcium Level 9.1 MG/DL Magnesium Level 2.3 MG/DL Sodium Level 138 MEQ/L Potassium Level 2.8 MEQ/L Chloride Level 101 MEQ/L Carbon Dioxide Level 25.0 MEQ/L Anion Gap 12 MEQ/L Estimat Glomerular Filtration Rate 51 ML/MIN Administered Medications Medications (Trade) Dose Ordered Sig/Mariela Route PRN Reason Start Time Stop Time Status Last Admin Dose Admin Sodium Chloride (NS Flush) 2 ml BID IV FLUSH 11/26/17 21:00 11/28/17 10:18 Magnesium Hydroxide (Milk Of Magnesia Liq) 30 ml Q12H PRN PO Mild constipation 11/26/17 17:00 11/27/17 16:36 Bumetanide (Bumetanide) 2 mg DAILY PO 11/27/17 09:00 Future Hold 11/27/17 08:04 Carvedilol (Coreg) 12.5 mg BID PO 11/26/17 21:00 11/28/17 10:18 Cholecalciferol (Vitamin D3) 5,000 units DAILY PO 11/27/17 09:00 11/28/17 10:18 Nifedipine (Procardia Xl) 30 mg HS PO 11/26/17 21:00 11/27/17 20:25 Heparin Sodium (Porcine) (Heparin Inj) 5,000 units Q12HR SQ 11/26/17 21:00 11/27/17 20:25 Senna/Docusate Sodium (Dominga-Colace) 1 tab BID PO 11/26/17 21:00 11/28/17 10:18 Ondansetron HCl (Zofran Inj) 4 mg Q6HR PRN IV PUSH nausea 11/27/17 12:30 11/28/17 06:37 Morphine Sulfate (Morphine Inj) 2 mg Q4H PRN IV PUSH breakthrough pain 11/27/17 14:00 11/27/17 16:37 Morphine Sulfate (Morphine Inj) 4 mg Q4H PRN IV pain 3-10 11/27/17 16:45 11/28/17 06:37 Objective Remarks GENERAL: Pleasant elderly female, sitting up in bed in no distress with visitor at bedside SKIN: Warm and dry. HEAD: Normocephalic. EYES: No injection or drainage. NECK: Supple, trachea midline. CARDIOVASCULAR: Regular rate and rhythm RESPIRATORY: Breath sounds equal bilaterally. No accessory muscle use. GASTROINTESTINAL: Abdomen soft, mildly tender around left lower quadrant, nondistended. EXTREMITIES: No cyanosis. No edema NEUROLOGICAL: No obvious focal deficit. Awake and alert. Normal speech. Assessment/Plan Problem List: (1) Mesenteric mass ICD Codes: K63.9 - Disease of intestine, unspecified Status: Acute Plan: 11/28: Patient having biopsy tomorrow in OR. Patient clear for discharge when cleared by surgeon. I have sent a message to the new patient referrals to have patient follow-up with Dr. Lamb to go over biopsy results. 11/27: await CT chest. will need to consult invasive radiology or surgeon based on CT chest findings. will transfer to oncology --CT a/p showed multiple soft tissue masses in the abdomen, the largest is 5 cm. --no palpable LAD --findings consistent with lymphoma until proven otherwise. Assessment 77y/o female with abdominal masses, concerned for lymphoma. history of hypertension, hypercholesterolemia, TIA and coronary artery disease. s/p coronary artery bypass surgery in 10/2016. Attending Statement The exam, history, and the medical decision-making described in the above note were completed with the assistance of the mid-level provider. I reviewed and agree with the findings presented. I attest that I had a [id number] encounter with the patient on the same day, and personally performed and documented my assessment and findings in the medical record. No new c/o GS consulted. Schedule for lap bx tomorrow. If remains stable after surg then ok to d/c tomorrow. FU as outpt. Pt has agreed . Katherine Back Nov 28, 2017 12:47 Torin Lamb MD Nov 28, 2017 22:10
[2017-11-28] MEDS ORDERED: POTASSIUM CHLORIDE 10 MEQ CONTROLLED RELEASE TAB PO ONE (13:00)
[2017-11-28] MEDS: POTASSIUM CHLOR 20 MEQ PREMIX 100 ML IV SCH ×2 (15:00→15:22)
--- NOTE | 2017-11-28 16:07 | PD.CONS ---
cc: Kj Benton MD HPI Service General Surgery Consult Requested By Dr. Lamb Reason for Consult For biopsy of abdominal soft tissue mass Primary Care Physician Non-Staff History of Present Illness This is a 77 year old female with a past medical history of hypertension, dyslipidemia, renal insufficiency and osteoarthritis. The patient first noticed LEFT hip pain and LEFT sided abdominal pain on November 16, 2017. She denies any trauma or injury to the area. She denies any nausea or vomiting. She came to the ED on November [address] abdomen/pelvis was obtained which showed multiple mesenteric masses. There is a concern for lymphoma. A General Surgery consultation has been requested for biopsy. Review of Systems Constitutional: DENIES: Fatigue, Weight loss, Change in appetite Endocrine: DENIES: Polydipsia, Polyuria, Polyphagia Eyes: DENIES: Diplopia, Eye inflammation Ears, nose, mouth, throat: DENIES: Hearing loss Respiratory: DENIES: Cough Cardiovascular: DENIES: Chest pain Gastrointestinal: COMPLAINS OF: Abdominal pain (LEFT sided ), DENIES: Nausea, Vomiting Genitourinary: DENIES: Urinary frequency Musculoskeletal: COMPLAINS OF: Joint pain (hip pain ) Integumentary: DENIES: Abnormal pigmentation Hematologic/lymphatic: DENIES: Bruising Immunologic/allergic: DENIES: Eczema Neurologic: DENIES: Headache, Localized weakness, Paresthesias Psychiatric: DENIES: Confusion, Mood changes, Depression Past Family Social History Past Medical History Hypertension Dyslipidemia Renal insufficiency Osteoarthritis Past Surgical History CABG---October 2016 Pacemaker placement Partial hysterectomy Unknown abdominal surgery at [facility] in 2005 Reported Medications Plavix Carvedilol Nifedipine Aspirin Bumetanide Vitamin D Allergies: Coded Allergies: amlodipine (Verified Allergy, Severe, Anaphylaxis, 11/26/17) [id number]-[id number] Reductase Inhibitor (Verified Allergy, Unknown, 11/26/17) lisinopril (Verified Allergy, Unknown, 11/26/17) Active Ordered Medications Current Medications Medications (Trade) Dose Ordered Sig/Mariela Route Start Time Stop Time Status Last Admin (NS Flush) 2 ml UNSCH PRN IV FLUSH 11/26/17 17:00 (NS Flush) 2 ml BID IV FLUSH 11/26/17 21:00 11/28/17 10:18 (Narcan Inj) 0.4 mg UNSCH PRN IV PUSH 11/26/17 17:00 (Milk Of Magnesia Liq) 30 ml Q12H PRN PO 11/26/17 17:00 11/27/17 16:36 (Catapres) 0.1 mg Q6H PRN PO 11/26/17 17:00 (Bumetanide) 2 mg DAILY PO 11/27/17 09:00 Future Hold 11/27/17 08:04 (Coreg) 12.5 mg BID PO 11/26/17 21:00 11/28/17 10:18 (Vitamin D3) 5,000 units DAILY PO 11/27/17 09:00 11/28/17 10:18 (Procardia Xl) 30 mg HS PO 11/26/17 21:00 11/27/17 20:25 (Heparin Inj) 5,000 units Q12HR SQ 11/26/17 21:00 11/27/17 20:25 (Dominga-Colace) 1 tab BID PO 11/26/17 21:00 11/28/17 10:18 (Zofran Inj) 4 mg Q6HR PRN IV PUSH 11/27/17 12:30 11/28/17 06:37 (Morphine Inj) 2 mg Q4H PRN IV PUSH 11/27/17 14:00 11/27/17 16:37 (Morphine Inj) 4 mg Q4H PRN IV 11/27/17 16:45 11/28/17 06:37 Potassium Chloride 100 ml @ 50 mls/hr Q2H IV 11/28/17 13:00 11/28/17 16:59 11/28/17 15:22 Family History No known family history of any cancers Social History Denies tobacco use Denies ETOH use Just recently moved her form [place] to be closer to her daughter. She is currently living with her daughter. Physical Exam Vital Signs Vital Signs Date Time Temp Pulse Resp B/P (MAP) Pulse Ox O2 Delivery O2 Flow Rate FiO2 11/28/17 12:00 98.3 60 18 170/66 (100) 92 11/28/17 12:00 67 11/28/17 08:00 73 11/28/17 05:08 98.0 61 18 147/70 (95) 92 11/28/17 04:16 63 11/28/17 01:32 61 11/28/17 01:25 97.9 60 18 159/72 (101) 92 11/27/17 22:31 97.6 63 18 175/76 (109) 99 11/27/17 21:42 98.3 60 16 156/57 (90) 94 11/27/17 20:11 98.3 70 16 137/93 (108) 95 Physical Exam GENERAL: Very pleasant 77 year old female resting in bed in no acute distress. SKIN: Warm and dry. HEAD: Atraumatic. Normocephalic. EYES: Pupils equal and round. No scleral icterus. No injection or drainage. ENT: No nasal bleeding or discharge. Mucous membranes pink and moist. NECK: Trachea midline. CARDIOVASCULAR: Regular rate and rhythm. RESPIRATORY: No accessory muscle use. Clear to auscultation. Breath sounds equal bilaterally. GASTROINTESTINAL: Abdomen soft, non-tender, nondistended. No visible hernias. MUSCULOSKELETAL: Extremities without clubbing, cyanosis, or edema. No obvious deformities. NEUROLOGICAL: Awake and alert. No obvious cranial nerve deficits. Motor grossly within normal limits. Five out of 5 muscle strength in the arms and legs. Normal speech. PSYCHIATRIC: Appropriate mood and affect; insight and judgment normal. No lymphadenopathy in bilateral axillary, bilateral groin; bilateral supraclavicular Laboratory Laboratory Tests Test 11/28/17 07:53 Blood Urea Nitrogen 22 Creatinine 1.04 Random Glucose 93 Calcium Level 9.1 Magnesium Level 2.3 Sodium Level 138 Potassium Level 2.8 Chloride Level 101 Carbon Dioxide Level 25.0 Anion Gap 12 Estimat Glomerular Filtration Rate 51 Result Diagram: 11/27/17 0535 11/28/17 0753 Imaging Last [address] 11/27/17 0900 Signed Impressions: Service Date/Time: Monday, November 27, 2017 18:39 - CONCLUSION: 1. There is no lymphadenopathy of the chest. 2. Small hiatal hernia. Suspected gastroesophageal reflux disease. 3. Trace atelectasis of both lung bases. No pneumonia. David Pereira MD Assessment and Plan Assessment and Plan 77 year old female with multiple mesenteric mass in need of biopsy -Will plan for biopsy in OR tomorrow -Consents on chart -Continue to hold Plavix; hold Heparin -Regular diet; NPO after MN -Discussed with Katherine YBARRA -Thank you for this consult; We will continue to follow Discussed Condition With Tamiko Crawford Ms./First Jeevan YBARRA Nov 28, 2017 16:07
--- NOTE | 2017-11-28 17:47 | HHI.PR ---
Subjective Remarks PAtient c/o left lower quadrant pain. Afebrile Denies nausea or vomiting Objective Vitals Vital Signs Date Time Temp Pulse Resp B/P (MAP) Pulse Ox O2 Delivery O2 Flow Rate FiO2 11/28/17 12:00 98.3 60 18 170/66 (100) 92 11/28/17 12:00 67 11/28/17 08:00 73 11/28/17 05:08 98.0 61 18 147/70 (95) 92 11/28/17 04:16 63 11/28/17 01:32 61 11/28/17 01:25 97.9 60 18 159/72 (101) 92 11/27/17 22:31 97.6 63 18 175/76 (109) 99 11/27/17 21:42 98.3 60 16 156/57 (90) 94 11/27/17 20:11 98.3 70 16 137/93 (108) 95 I/O 11/27/17 11/27/17 11/27/17 11/28/17 11/28/17 11/28/17 07:00 15:00 23:00 07:00 15:00 23:00 Intake Total 250 ml 750 ml 720 ml Output Total 850 ml 300 ml 700 ml Balance 250 ml -100 ml -300 ml 20 ml Intake Oral 250 ml 750 ml 720 ml Output Urine Total 850 ml 300 ml 700 ml # Voids 2 1 # Bowel Movements 0 Result Diagram: 11/27/17 0535 11/28/17 0753 Imaging Last Impressions Chest CT 11/27/17 0900 Signed Impressions: Service Date/Time: Monday, November 27, 2017 18:39 - CONCLUSION: 1. There is no lymphadenopathy of the chest. 2. Small hiatal hernia. Suspected gastroesophageal reflux disease. 3. Trace atelectasis of both lung bases. No pneumonia. David Pereira MD Abdomen/Pelvis CT 11/26/17 1300 Signed Impressions: Service Date/Time: Sunday, November 26, 2017 15:01 - CONCLUSION: 1. Multiple mesenteric masses most characteristic of adenopathy. The largest measures up to 5 cm. There is of concern for lymphoma 2. Small retrocardiac hiatal hernia. 3. Status post median sternotomy. 4. The spleen is unremarkable. 5. Evidence of central canal stenosis at the L5-S1 level. Kayden Makcay MD Hip and Pelvis X-Ray 11/26/17 0000 Signed Impressions: Service Date/Time: Sunday, November 26, 2017 11:58 - CONCLUSION: No acute fracture. Wicho Butler MD Objective Remarks GENERAL: This is a well-nourished, well-developed patient, in NAD. SKIN: No rashes, ecchymoses or lesions. Cool and dry. HEAD: Atraumatic. Normocephalic. EYES: Pupils equal round and reactive. Extraocular motions intact. No scleral icterus. No injection or drainage. ENT: Nose without bleeding, purulent drainage. Throat without erythema. Uvula midline. Airway patent. NECK: Trachea midline. No JVD. Supple, nontender. CARDIOVASCULAR: Regular rate and rhythm without murmurs, gallops, or rubs. RESPIRATORY: Clear to auscultation. Breath sounds equal bilaterally. No wheezes , rales, or rhonchi. GASTROINTESTINAL: Abdomen soft, nondistended, normoactive bowel sounds. Minimal tenderness in the suprapubic area. No guarding. MUSCULOSKELETAL: Extremities without clubbing, cyanosis, or edema. No joint tenderness, effusion, or edema noted. NEUROLOGICAL: Awake and alert x3. Cranial nerves II through XII intact. Motor and sensory grossly within normal limits. Five out of 5 muscle strength in all muscle groups. Normal speech. PSYCH: Mood and affect appropriate. A/P Problem List: (1) Mesenteric mass ICD Code: K63.9 - Disease of intestine, unspecified Status: Acute (2) Hypertensive emergency ICD Code: I16.1 - Hypertensive emergency (3) Left hip pain ICD Code: M25.552 - Pain in left hip Status: Acute (4) Abdominal pain, left lower quadrant ICD Code: R10.32 - Left lower quadrant pain Status: Acute (5) Intractable pain ICD Code: R52 - Pain, unspecified Assessment and Plan Intractable hip pain/ Multiple mesenteric masses Hip/Pelvis x-ray reviewed, no acute fracture. Abdominal/pelvis CT: multiple mesenteric masses characteristic of adenopathy w/ largest 5cm, concerning for lymphoma; Small retrocardiac hiatal hernia, and central canal stenosis at L5- S1. Oncology consult appreciated. - CT chest pending. Will likely need biopsy. - Pain control with IV morphine/ Zofran as other pain meds make her nauseous. - transfer to oncology floor per oncology. 11/28 Appreciate GS recommendations - patient for biopsy in OR in am. NPO at midnight. Hypertensive urgency BP on admission 251/117 HR 66, most likely secondary to pain. Improved. - continue home Nifedipine and Coreg. - PRN Vasotec IV, and PO Clonidine. - pain control. 11/28 Increase nifedipine XL dose up to 60 mg po at HS. Hx CABG w/pacer in place > than 1 year since surgery. - hold ASA and Plavix for possible biopsy. - BP control, does not tolerate statins. Renal insufficiency/ Hypokalemia Exacerbated by Bumex. - hold Bumex. - replete potassium and monitor BMP. - Avoid nephrotoxins. 11/28 K severely low - Replace with IV and po KCL. Creatinine trending down. Monitor BUN and Creatinine. DVT prophylaxis- subq Heparin Rakesh Diop MD Nov 28, 2017 17:47
[2017-11-28] MEDS ORDERED: LACTULOSE SYRUP 20 GM/30 ML CUP PO PRN (18:15)
[2017-11-28] MEDS ORDERED: SENNOSIDES 8.6 MG TAB PO PRN (18:15)
[2017-11-28] MEDS ORDERED: MAGNESIUM HYDROXIDE SUSP 30 ML CUP PO PRN (18:15)
[2017-11-28] MEDS ORDERED: BISACODYL 10 MG SUPP RECTAL PRN (18:15)
[2017-11-28] MEDS: NIFEdipine 30 MG SUSTAINED RELEASE TAB PO SCH (21:39)
[2017-11-28] MEDS: POTASSIUM CHLORIDE 25 MEQ EFFERVESCENT TAB NG SCH (21:40)
[2017-11-29] VITALS (12 sets, daily range): BP systolic 147–167; BP diastolic 68–82; PULSE 59–75; RESP 16–20; TEMP 97.7–98.7; O2SAT 94–98
[2017-11-29] MEDS ORDERED: NIFEdipine 30 MG SUSTAINED RELEASE TAB PO ONE (01:00)
[2017-11-29 08:07] LABS: BICARBONATE 27.5 MEQ/L (21.0-32.0); CREATININE 1.01 MG/DL (0.50-1.00)
[2017-11-29] MEDS ORDERED: BUPIVACAINE/EPINEPHRINE 0.5% PF 30 ML VIAL ONE (08:28)
[2017-11-29] MEDS ORDERED: SUGAMMADEX SODIUM 200 MG/2 ML VIAL IV PUSH ONE (08:40)
[2017-11-29] MEDS: POTASSIUM CHLORIDE 25 MEQ EFFERVESCENT TAB NG SCH ×2 (09:00→20:25)
[2017-11-29] MEDS: CHOLECALCIFEROL (VIT D3) 5000 UNIT CAP PO SCH (09:00)
[2017-11-29] MEDS: CARVEDILOL 12.5 MG TAB PO SCH ×2 (09:00→20:25)
[2017-11-29] MEDS: SODIUM CHLORIDE 0.9% FLUSH 10 ML FLUSH IV FLUSH SCH ×2 (09:00→20:26)
[2017-11-29] MEDS ORDERED: LISINOPRIL 10 MG TAB PO SCH (09:15)
--- NOTE | 2017-11-29 09:25 | HHI.PR ---
Immediate Post Op Note Procedure Date: Nov 29, 2017 Pre Op Diagnosis: abdominal pain, lymphadenopathy, r/o lymphoma Post Op Diagnosis: same Surgeon: Kj Benton MD Icicle Machine Operator(s): agusto Procedure: dx lap, lap mesenteric lymph node biopsy Findings: LAD, large mesenteric mass Complications: none Specimen(s) removed: mesenteric lymph node Estimated blood loss: 10cc Anesthesia: General Patient to: PACU Patient Condition: Good Kj Benton MD Nov 29, 2017 09:25
[2017-11-29] MEDS ORDERED: ceFAZolin INJ 1,000 MG VIAL IV ONE (09:57)
[2017-11-29] MEDS ORDERED: *PROMETHAZINE 25 MG/ML VIAL PERIprocedural use ONLY ONE (11:10)
[2017-11-29] MEDS ORDERED: *ONDANSETRON 4 MG VIAL PERIprocedural Use ONLY ONE (11:23)
[2017-11-29] MEDS ORDERED: *morphine SULFATE 4 MG/ML PERIprocedure ONLY ONE (11:28)
[2017-11-29] MEDS ORDERED: *LABETALOL HCL 100 MG/20 ML VIAL PERIprocedural Use ONLY ONE (11:32)
[2017-11-29] MEDS ORDERED: DO NOT ADM ANY ANTICOAGULANT DRUGS PRN (11:45)
--- NOTE | 2017-11-29 12:27 | MP ---
cc: Kj Benton MD DATE OF OPERATION: 11/29/2017 PREOPERATIVE DIAGNOSIS: Abdominal pain, mesenteric lymphadenopathy, mesenteric mass, concern for lymphoma. POSTOPERATIVE DIAGNOSIS: Abdominal pain, mesenteric lymphadenopathy mesenteric mass, concern for lymphoma. PROCEDURE PERFORMED: 1. Diagnostic laparoscopy. 2. Laparoscopic biopsy of mesenteric lymph node. 3. Laparoscopic wedge resection of mesenteric mass. SURGEON: Kj Benton MD. PIZZA COOK: Lucie. ANESTHESIA: GETA. IV FLUIDS: See anesthesia sheet. ESTIMATED BLOOD LOSS: 10 mL. DRAINS: None. COMPLICATIONS: None. WOUND CLASSIFICATION: Clean. FINDINGS: A large centralized mesenteric mass. Minimal observed lymphadenopathy. SPECIMENS: Mesenteric lymph nodes sent for fresh lymphoma protocol. Wedge resection of mesenteric mass. INDICATIONS: This is a 77-year-old female who presents with acute left hip pain. She had further workup included a CT scan showing incidental findings of mesenteric masses, and lymphadenopathy. Therefore, decision was made for surgical biopsy. DETAILS OF PROCEDURE: The patient was taken to the operating suite, placed in the supine position. She was prepped and draped in the usual sterile fashion after induction of general endotracheal anesthesia. A brief time-out done stating correct patient, procedure, surgical site and we were all in agreement with this. Attention first directed to the left upper quadrant where local anesthetic injected. A small stab odette incision was made. The Visiport Optiview 5 mm port was introduced and the abdomen entered safely. The abdomen insufflated to 15 mm pneumoperitoneum. On cursory inspection, no evidence of injury. On inspection, there was noted to be a centralized mesenteric mass. Two other ports were placed including a 5 mm left lower quadrant, left mid quadrant. Under direct visualization, examination of the small bowel, did not note any abnormalities. The the mesentery of the bowel was examined with the findings of lymphadenopathy. A single lymph node was excised using hook electro Bovie cautery. This was sent down for a fresh specimen for analysis to rule out lymphoma. Next, the mass was addressed. A Harmonic scalpel was used to incise the peritoneal covering over the mass. A wedge resection was taken of the mass. Hemostasis was obtained with both the Harmonic scalpel and electro Bovie cautery. SNoW was placed in the wound bed and pressure was applied. The wound was noted to be hemostatic as well. The specimens were removed with the middle finger tip of a rubber glove through the 5 mm port site. Next, the omentum was placed over the mesenteric mass and the abdomen was desufflated. The ports were removed and local anesthetic injected in the ports. 4-0 Monocryl used to close the port sites. Steri-Strips were placed. Sterile dressings were placed. The patient tolerated the procedure well. There were no intraoperative complications. All lap and instrument counts were correct at the end of procedure. The patient was extubated and taken stable to PACU. MD MARLENE Evans/TRISHA , 11:57 AM , 12:26 PM
--- NOTE | 2017-11-29 13:29 | PD.ONC.PN ---
Subjective Subjective Remarks Afebrile overnight. Patient just back from Laparoscopic biopsy. Per nursing report she had some coffee ground output from OGT during procedure. No vomiting or bleeding since arrival back from biopsy. Objective Data Date Time Temp Pulse Resp B/P (MAP) Pulse Ox O2 Delivery O2 Flow Rate FiO2 11/29/17 12:00 60 12 159/70 (99) 93 Nasal Cannula 3 11/29/17 11:45 60 14 164/72 (102) 93 Nasal Cannula 3 11/29/17 11:30 67 21 180/82 (114) 95 Nasal Cannula 3 11/29/17 11:15 65 20 165/72 (103) 94 Nasal Cannula 3 11/29/17 11:05 97.6 71 15 172/74 (106) 93 Nasal Cannula 3 11/29/17 07:45 59 11/29/17 07:24 97.9 75 16 165/75 (105) 94 11/29/17 04:00 60 11/29/17 04:00 98.3 60 20 153/72 (99) 94 11/29/17 00:00 60 11/29/17 00:00 98.6 60 20 167/68 (101) 95 11/28/17 20:00 98.5 60 20 179/77 (111) 94 11/28/17 20:00 69 11/28/17 18:30 97.6 65 18 159/64 (95) 96 11/28/17 16:00 60 11/29/17 11/29/17 11/29/17 07:00 15:00 23:00 Intake Total 1510 ml Output Total 300 ml 20 ml Balance -300 ml 1490 ml Result Diagram: 11/27/17 0535 11/29/17 0714 Laboratory Results Laboratory Tests Test 11/29/17 07:14 11/29/17 10:14 Blood Urea Nitrogen 20 MG/DL Creatinine 1.01 MG/DL Random Glucose 101 MG/DL Calcium Level 9.0 MG/DL Sodium Level 139 MEQ/L Potassium Level 4.0 MEQ/L Chloride Level 103 MEQ/L Carbon Dioxide Level 27.5 MEQ/L Anion Gap 9 MEQ/L Estimat Glomerular Filtration Rate 53 ML/MIN Administered Medications Medications (Trade) Dose Ordered Sig/Mariela Route PRN Reason Start Time Stop Time Status Last Admin Dose Admin Sodium Chloride (NS Flush) 2 ml BID IV FLUSH 11/26/17 21:00 4/25/18 21:41 Bumetanide (Bumetanide) 2 mg DAILY PO 11/27/17 09:00 Future Hold 11/27/17 08:04 Carvedilol (Coreg) 12.5 mg BID PO 11/26/17 21:00 11/28/17 21:39 Cholecalciferol (Vitamin D3) 5,000 units DAILY PO 11/27/17 09:00 11/28/17 10:18 Heparin Sodium (Porcine) (Heparin Inj) 5,000 units Q12HR SQ 11/26/17 21:00 Future Hold 11/27/17 20:25 Ondansetron HCl (Zofran Inj) 4 mg Q6HR PRN IV PUSH nausea 11/27/17 12:30 11/28/17 06:37 Morphine Sulfate (Morphine Inj) 2 mg Q4H PRN IV PUSH breakthrough pain 11/27/17 14:00 11/27/17 16:37 Morphine Sulfate (Morphine Inj) 4 mg Q4H PRN IV pain 3-10 11/27/17 16:45 11/28/17 06:37 Potassium Bicarb/ Potassium Chloride (K-Lyte Cl Eff) 25 meq Q12HR NG 11/28/17 21:00 11/28/17 21:40 Senna/Docusate Sodium (Dominga-Colace) 1 tab BID PO 11/28/17 21:00 11/28/17 21:39 Objective Remarks GENERAL: Elderly female, lying supine in bed resting. On O2 via NC SKIN: Warm and dry. HEAD: Normocephalic. EYES: No injection or drainage. NECK: Supple, trachea midline. CARDIOVASCULAR: Regular rate and rhythm RESPIRATORY: Breath sounds equal bilaterally. No accessory muscle use. on 3L O2 via NC GASTROINTESTINAL: Abdomen soft, non-tender, nondistended. EXTREMITIES: No cyanosis. NEUROLOGICAL: awake and alert. normal speech. moving extremities. Assessment/Plan Problem List: (1) Mesenteric mass ICD Codes: K63.9 - Disease of intestine, unspecified Status: Acute Plan: 11/29: s/p biopsy. face sheet faxed to new patient referrals for follow up next Sunday with Dr. lamb. check CBC today and give protonix for report of coffee ground output from OGT. 11/28: Patient having biopsy tomorrow in OR. Patient clear for discharge when cleared by surgeon. I have sent a message to the new patient referrals to have patient follow-up with Dr. Lamb to go over biopsy results. 11/27: await CT chest. will need to consult invasive radiology or surgeon based on CT chest findings. will transfer to oncology --CT a/p showed multiple soft tissue masses in the abdomen, the largest is 5 cm. --no palpable LAD --findings consistent with lymphoma until proven otherwise. Assessment 77y/o female with abdominal masses, concerned for lymphoma. history of hypertension, hypercholesterolemia, TIA and coronary artery disease. s/p coronary artery bypass surgery in 10/2016. Attending Statement The exam, history, and the medical decision-making described in the above note were completed with the assistance of the mid-level provider. I reviewed and agree with the findings presented. I attest that I had a [id number] encounter with the patient on the same day, and personally performed and documented my assessment and findings in the medical record. NO new c/o For surgery today. Operative findings noted. Path result will take several days. I will see her next week sunday to go over the result of the bx. Ok to d/c from my standpoint. Tri Zavala Nov 29, 2017 13:29 Torin Lamb MD Nov 29, 2017 17:01
[2017-11-29 13:54] LABS: AUTOMATED NEUTROPHIL # 11.5 TH/MM3 (1.8-7.7); BASOPHIL # 0.1 TH/MM3 (0-0.2); BASOPHIL % 0.5 % (0.0-2.0); EOSINOPHIL % 0.2 % (0.0-4.0); HEMOGLOBIN 15.5 GM/DL (11.6-15.3); LYMPH % 4.1 % (9.0-44.0); LYMPHOCYTE # 0.5 TH/MM3 (1.0-4.8); MEAN CELL VOLUME 84.4 FL (80.0-100.0); MEAN CORPUSCULAR HEMOGLOBIN 27.8 PG (27.0-34.0); MEAN CORPUSCULAR HGB CONC 32.9 % (32.0-36.0); MEAN PLATELET VOLUME 9.1 FL (7.0-11.0); MONO % 1.2 % (0.0-8.0); MONOCYTE # 0.1 TH/MM3 (0-0.9); PLATELET COUNT 208 TH/MM3 (150-450); RED BLOOD COUNT 5.57 MIL/MM3 (4.00-5.30); WHITE BLOOD COUNT 12.2 TH/MM3 (4.0-11.0)
[2017-11-29] MEDS: DOCUSATE SODIUM 50 MG/SENNA 8.6 MG TAB PO SCH ×2 (14:07→20:26)
[2017-11-29] MEDS: MORPHINE SULFATE 4 MG/ML INJ IV PRN (14:08)
[2017-11-29] MEDS ORDERED: PANTOPRAZOLE SODIUM 40 MG VIAL IV PUSH SCH (15:00)
--- NOTE | 2017-11-29 16:48 | HHI.PR ---
Subjective Remarks The patient states that she feels bloated and constipated. Denies chest pain or shortness of breath. Status post OR. BP elevated into the 180s systolic. Afebrile Objective Vitals Vital Signs Date Time Temp Pulse Resp B/P (MAP) Pulse Ox O2 Delivery O2 Flow Rate FiO2 11/29/17 12:30 97.7 68 16 163/69 (100) 96 11/29/17 12:00 60 12 159/70 (99) 93 Nasal Cannula 3 11/29/17 11:45 60 14 164/72 (102) 93 Nasal Cannula 3 11/29/17 11:30 67 21 180/82 (114) 95 Nasal Cannula 3 11/29/17 11:15 65 20 165/72 (103) 94 Nasal Cannula 3 11/29/17 11:05 97.6 71 15 172/74 (106) 93 Nasal Cannula 3 11/29/17 07:45 59 11/29/17 07:24 97.9 75 16 165/75 (105) 94 11/29/17 04:00 60 11/29/17 04:00 98.3 60 20 153/72 (99) 94 11/29/17 00:00 60 11/29/17 00:00 98.6 60 20 167/68 (101) 95 11/28/17 20:00 98.5 60 20 179/77 (111) 94 11/28/17 20:00 69 11/28/17 18:30 97.6 65 18 159/64 (95) 96 I/O 11/28/17 11/28/17 11/28/17 11/29/17 11/29/17 11/29/17 07:00 15:00 23:00 07:00 15:00 23:00 Intake Total 720 ml 1510 ml Output Total 300 ml 1000 ml 300 ml 20 ml Balance -300 ml -280 ml -300 ml 1490 ml Intake Oral 720 ml IV Total 10 ml Other 1500 ml Output Urine Total 300 ml 1000 ml 300 ml Estimated Blood Loss 20 ml # Bowel Movements 0 Result Diagram: 11/29/17 1340 11/29/17 0714 Imaging Last Impressions Chest CT 11/27/17 0900 Signed Impressions: Service Date/Time: Monday, November 27, 2017 18:39 - CONCLUSION: 1. There is no lymphadenopathy of the chest. 2. Small hiatal hernia. Suspected gastroesophageal reflux disease. 3. Trace atelectasis of both lung bases. No pneumonia. David Pereira MD Abdomen/Pelvis CT 11/26/17 1300 Signed Impressions: Service Date/Time: Sunday, November 26, 2017 15:01 - CONCLUSION: 1. Multiple mesenteric masses most characteristic of adenopathy. The largest measures up to 5 cm. There is of concern for lymphoma 2. Small retrocardiac hiatal hernia. 3. Status post median sternotomy. 4. The spleen is unremarkable. 5. Evidence of central canal stenosis at the L5-S1 level. Kayden Mackay MD Hip and Pelvis X-Ray 11/26/17 0000 Signed Impressions: Service Date/Time: Sunday, November 26, 2017 11:58 - CONCLUSION: No acute fracture. Wicho Butler MD Objective Remarks GENERAL: This is a well-nourished, well-developed patient, in NAD. SKIN: No rashes, ecchymoses or lesions. Cool and dry. HEAD: Atraumatic. Normocephalic. EYES: Pupils equal round and reactive. Extraocular motions intact. No scleral icterus. No injection or drainage. ENT: Nose without bleeding, purulent drainage. Throat without erythema. Uvula midline. Airway patent. NECK: Trachea midline. No JVD. Supple, nontender. CARDIOVASCULAR: Regular rate and rhythm without murmurs, gallops, or rubs. RESPIRATORY: Clear to auscultation. Breath sounds equal bilaterally. No wheezes , rales, or rhonchi. GASTROINTESTINAL: Abdomen soft, nondistended, normoactive bowel sounds. Minimal tenderness in the suprapubic area. No guarding. MUSCULOSKELETAL: Extremities without clubbing, cyanosis, or edema. No joint tenderness, effusion, or edema noted. NEUROLOGICAL: Awake and alert x3. Cranial nerves II through XII intact. Motor and sensory grossly within normal limits. Five out of 5 muscle strength in all muscle groups. Normal speech. PSYCH: Mood and affect appropriate. Procedures 1. Diagnostic laparoscopy. 2. Laparoscopic biopsy of mesenteric lymph node. 3. Laparoscopic wedge resection of mesenteric mass Medications and IVs Current Medications Medications (Trade) Dose Ordered Sig/Mariela Route Start Time Stop Time Status Last Admin (NS Flush) 2 ml UNSCH PRN IV FLUSH 11/26/17 17:00 (NS Flush) 2 ml BID IV FLUSH 11/26/17 21:00 11/29/17 09:00 (Narcan Inj) 0.4 mg UNSCH PRN IV PUSH 11/26/17 17:00 (Catapres) 0.1 mg Q6H PRN PO 11/26/17 17:00 11/29/17 14:07 (Bumetanide) 2 mg DAILY PO 11/27/17 09:00 Future Hold 11/27/17 08:04 (Coreg) 12.5 mg BID PO 11/26/17 21:00 11/28/17 21:39 (Vitamin D3) 5,000 units DAILY PO 11/27/17 09:00 11/28/17 10:18 (Heparin Inj) 5,000 units Q12HR SQ 11/26/17 21:00 Future Hold 11/27/17 20:25 (Zofran Inj) 4 mg Q6HR PRN IV PUSH 11/27/17 12:30 11/28/17 06:37 (Morphine Inj) 2 mg Q4H PRN IV PUSH 11/27/17 14:00 11/27/17 16:37 (Morphine Inj) 4 mg Q4H PRN IV 11/27/17 16:45 11/29/17 14:08 (K-Lyte Cl Eff) 25 meq Q12HR NG 11/28/17 21:00 11/28/17 21:40 (Dominga-Colace) 1 tab BID PO 11/28/17 21:00 11/29/17 14:07 (Milk Of Magnesia Liq) 30 ml Q12H PRN PO 11/28/17 18:15 (Senokot) 17.2 mg Q12H PRN PO 11/28/17 18:15 (Dulcolax Supp) 10 mg DAILY PRN RECTAL 11/28/17 18:15 (Lactulose Liq) 30 ml DAILY PRN PO 11/28/17 18:15 (Procardia Xl) 60 mg HS PO 11/29/17 21:00 Miscellaneous Information ALL NURSING DEPARTME... UNSCH PRN .XX 11/29/17 11:45 11/30/17 11:44 (Protonix Inj) 40 mg Q24H IV PUSH 11/29/17 15:00 Urinary Catheter: Yes Assessment to: Continue Alford insert reason: Surgical/Invasive Proced Vascular Central Line Catheter: No A/P Problem List: (1) Mesenteric mass ICD Code: K63.9 - Disease of intestine, unspecified Status: Acute (2) Hypertensive emergency ICD Code: I16.1 - Hypertensive emergency (3) Left hip pain ICD Code: M25.552 - Pain in left hip Status: Acute (4) Abdominal pain, left lower quadrant ICD Code: R10.32 - Left lower quadrant pain Status: Acute (5) Intractable pain ICD Code: R52 - Pain, unspecified Assessment and Plan Intractable hip pain/ Multiple mesenteric masses Hip/Pelvis x-ray reviewed, no acute fracture. Abdominal/pelvis CT: multiple mesenteric masses characteristic of adenopathy w/ largest 5cm, concerning for lymphoma; Small retrocardiac hiatal hernia, and central canal stenosis at L5- S1. Oncology consult appreciated. - CT chest pending. Will likely need biopsy. - Pain control with IV morphine/ Zofran as other pain meds make her nauseous. - transfer to oncology floor per oncology. 11/28 Appreciate GS recommendations - patient for biopsy in OR in am. NPO at midnight. 11/29 the patient is status post diagnostic laparoscopy. Laparoscopic biopsy of mesenteric lymph node and laparoscopic wedge resection of mesenteric mass. Continue management as pain control as per general surgery recommendations. Hypertensive urgency BP on admission 251/117 HR 66, most likely secondary to pain. Improved. - continue home Nifedipine and Coreg. - PRN Vasotec IV, and PO Clonidine. - pain control. 11/28 Increase nifedipine XL dose up to 60 mg po at HS. 11/29 blood pressure still severely elevated into the 180 systolic. Continue nifedipine XL 60 mg p.o. at at bedtime, continue Coreg and start the patient on Cardura 2 mg p.o. daily. Continue to monitor vital signs and continue as needed Vasotec IV and p.o. clonidine as needed. Hx CABG w/pacer in place > than 1 year since surgery. - hold ASA and Plavix for possible biopsy. - BP control, does not tolerate statins. JUDY/ Hypokalemia Exacerbated by Bumex. - hold Bumex. - replete potassium and monitor BMP. - Avoid nephrotoxins. 11/28 K severely low - Replace with IV and po KCL. Creatinine trending down. Monitor BUN and Creatinine. 11/29 hypokalemia resolved after IV and oral replacement. Continue to monitor BMP. Creatinine continues to trend down to 1.01. Continue to monitor BMP. Abdominal bloating Patient is complaining of abdominal bloating. Hypoactive bowel sounds likely postsurgical. Abdomen also looks slightly distended. Monitor with serial abdominal exams, the patient is not vomiting and is not nauseous at the moment. Check abdomen KUB, if no obstruction then continue to give stool softeners and laxatives as per constipation protocol. DVT prophylaxis- subq Heparin Discharge Planning Continue to monitor the medical floor. Discharge pending general surgery clearance. Rakesh Diop MD Nov 29, 2017 16:48
[2017-11-29] MEDS ORDERED: DOXAZOSIN MESYLATE 2 MG TAB PO ONE (18:00)
[2017-11-29] MEDS ORDERED: NIFEdipine 60 MG SUSTAINED RELEASE TAB PO SCH (21:00)
[2017-11-30] VITALS (15 sets, daily range): BP systolic 139–169; BP diastolic 58–82; PULSE 60–94; RESP 16–18; TEMP 97.1–98.5; O2SAT 96–97
[2017-11-30 05:33] LABS: BASOPHIL % 0.2 % (0.0-2.0); EOSINOPHIL # 0.1 TH/MM3 (0-0.4); EOSINOPHIL % 0.4 % (0.0-4.0); HEMATOCRIT 40.3 % (35.0-46.0); HEMOGLOBIN 13.2 GM/DL (11.6-15.3); LYMPH % 4.8 % (9.0-44.0); LYMPHOCYTE # 0.6 TH/MM3 (1.0-4.8); MEAN CELL VOLUME 85.6 FL (80.0-100.0); MEAN CORPUSCULAR HGB CONC 32.7 % (32.0-36.0); MEAN PLATELET VOLUME 9.7 FL (7.0-11.0); MONO % 5.7 % (0.0-8.0); MONOCYTE # 0.8 TH/MM3 (0-0.9); NEUT % 88.9 % (16.0-70.0); PLATELET COUNT 189 TH/MM3 (150-450); RED BLOOD COUNT 4.71 MIL/MM3 (4.00-5.30); RED CELL DISTRIBUTION WIDTH 16.2 % (11.6-17.2); WHITE BLOOD COUNT 13.5 TH/MM3 (4.0-11.0)
[2017-11-30 05:56] LABS: ALBUMIN 2.9 GM/DL (3.4-5.0); ALKALINE PHOSPHATASE 75 U/L (45-117); ALT (GPT) 32 U/L (10-53); AST (GOT) 24 U/L (15-37); BICARBONATE 24.5 MEQ/L (21.0-32.0); BLOOD UREA NITROGEN 31 MG/DL (7-18); CALCIUM 8.5 MG/DL (8.5-10.1); CHLORIDE 102 MEQ/L (98-107); CREATININE 1.28 MG/DL (0.50-1.00); GLOMERULAR FILTRATION RATE 40 ML/MIN (>89); GLUCOSE,RANDOM 134 MG/DL (74-106); MAGNESIUM 2.3 MG/DL (1.5-2.5); PHOSPHORUS 2.5 MG/DL (2.5-4.9); SODIUM (NA) 136 MEQ/L (136-145); TOTAL BILIRUBIN ADULT 0.4 MG/DL (0.2-1.0)
[2017-11-30] MEDS: POTASSIUM CHLORIDE 25 MEQ EFFERVESCENT TAB NG SCH (08:51)
[2017-11-30] MEDS: CHOLECALCIFEROL (VIT D3) 5000 UNIT CAP PO SCH (08:51)
[2017-11-30] MEDS: CARVEDILOL 12.5 MG TAB PO SCH (08:51)
[2017-11-30] MEDS: DOCUSATE SODIUM 50 MG/SENNA 8.6 MG TAB PO SCH (08:51)
[2017-11-30] MEDS: SODIUM CHLORIDE 0.9% FLUSH 10 ML FLUSH IV FLUSH SCH (08:53)
[2017-11-30] MEDS ORDERED: DOXAZOSIN MESYLATE 2 MG TAB PO SCH (09:00)
[2017-11-30] MEDS ORDERED: ACETAMINOPHEN/HYDROcodone 325 MG/5 MG TAB PO PRN ×2 (09:15)
--- NOTE | 2017-11-30 09:54 | PD.ONC.PN ---
Subjective Subjective Remarks Afebrile overnight. Patient resting in bed in nad. She feels bloated and constipated. no vomiting, no bleeding. Objective Data Date Time Temp Pulse Resp B/P (MAP) Pulse Ox O2 Delivery O2 Flow Rate FiO2 11/30/17 06:00 60 11/30/17 05:02 97.7 63 18 139/63 (88) 96 11/30/17 04:01 94 11/30/17 04:00 60 11/30/17 03:00 62 11/30/17 02:00 60 11/30/17 01:00 60 11/30/17 00:11 94 11/30/17 00:01 98.5 60 18 155/74 (101) 96 11/30/17 00:00 60 11/29/17 23:00 60 11/29/17 22:00 60 11/29/17 21:00 60 11/29/17 20:15 98.4 60 16 149/82 (104) 96 11/29/17 20:09 72 11/29/17 18:00 61 11/29/17 17:50 98.7 65 16 147/76 (99) 98 11/29/17 12:30 97.7 68 16 163/69 (100) 96 11/29/17 12:00 60 12 159/70 (99) 93 Nasal Cannula 3 11/29/17 11:45 60 14 164/72 (102) 93 Nasal Cannula 3 11/29/17 11:30 67 21 180/82 (114) 95 Nasal Cannula 3 11/29/17 11:15 65 20 165/72 (103) 94 Nasal Cannula 3 11/29/17 11:05 97.6 71 15 172/74 (106) 93 Nasal Cannula 3 11/30/17 11/30/17 11/30/17 07:00 15:00 23:00 Intake Total 480 ml Balance 480 ml Result Diagram: 11/30/17 0419 11/30/17 0419 Laboratory Results Laboratory Tests Test 11/29/17 10:14 11/29/17 13:40 11/30/17 04:19 White Blood Count 12.2 TH/MM3 13.5 TH/MM3 Red Blood Count 5.57 MIL/MM3 4.71 MIL/MM3 Hemoglobin 15.5 GM/DL 13.2 GM/DL Hematocrit 47.0 % 40.3 % Mean Corpuscular Volume 84.4 FL 85.6 FL Mean Corpuscular Hemoglobin 27.8 PG 28.0 PG Mean Corpuscular Hemoglobin Concent 32.9 % 32.7 % Red Cell Distribution Width 16.0 % 16.2 % Platelet Count 208 TH/MM3 189 TH/MM3 Mean Platelet Volume 9.1 FL 9.7 FL Neutrophils (%) (Auto) 94.0 % 88.9 % Lymphocytes (%) (Auto) 4.1 % 4.8 % Monocytes (%) (Auto) 1.2 % 5.7 % Eosinophils (%) (Auto) 0.2 % 0.4 % Basophils (%) (Auto) 0.5 % 0.2 % Neutrophils # (Auto) 11.5 TH/MM3 12.0 TH/MM3 Lymphocytes # (Auto) 0.5 TH/MM3 0.6 TH/MM3 Monocytes # (Auto) 0.1 TH/MM3 0.8 TH/MM3 Eosinophils # (Auto) 0.0 TH/MM3 0.1 TH/MM3 Basophils # (Auto) 0.1 TH/MM3 0.0 TH/MM3 CBC Comment DIFF FINAL DIFF FINAL Differential Comment Blood Urea Nitrogen 31 MG/DL Creatinine 1.28 MG/DL Random Glucose 134 MG/DL Total Protein 6.0 GM/DL Albumin 2.9 GM/DL Calcium Level 8.5 MG/DL Phosphorus Level 2.5 MG/DL Magnesium Level 2.3 MG/DL Alkaline Phosphatase 75 U/L Aspartate Amino Transf (AST/SGOT) 24 U/L Alanine Aminotransferase (ALT/SGPT) 32 U/L Total Bilirubin 0.4 MG/DL Sodium Level 136 MEQ/L Potassium Level 4.4 MEQ/L Chloride Level 102 MEQ/L Carbon Dioxide Level 24.5 MEQ/L Anion Gap 10 MEQ/L Estimat Glomerular Filtration Rate 40 ML/MIN Administered Medications Medications (Trade) Dose Ordered Sig/Amriela Route PRN Reason Start Time Stop Time Status Last Admin Dose Admin Sodium Chloride (NS Flush) 2 ml BID IV FLUSH 11/26/17 21:00 11/30/17 08:53 Clonidine (Catapres) 0.1 mg Q6H PRN PO SBP>160, DBP>90 11/26/17 17:00 11/29/17 14:07 Bumetanide (Bumetanide) 2 mg DAILY PO 11/27/17 09:00 Future Hold 11/27/17 08:04 Carvedilol (Coreg) 12.5 mg BID PO 11/26/17 21:00 11/30/17 08:51 Cholecalciferol (Vitamin D3) 5,000 units DAILY PO 11/27/17 09:00 11/30/17 08:51 Heparin Sodium (Porcine) (Heparin Inj) 5,000 units Q12HR SQ 11/26/17 21:00 Future Hold 11/27/17 20:25 Ondansetron HCl (Zofran Inj) 4 mg Q6HR PRN IV PUSH nausea 11/27/17 12:30 11/28/17 06:37 Morphine Sulfate (Morphine Inj) 2 mg Q4H PRN IV PUSH breakthrough pain 11/27/17 14:00 11/27/17 16:37 Morphine Sulfate (Morphine Inj) 4 mg Q4H PRN IV pain 3-10 11/27/17 16:45 11/29/17 14:08 Potassium Bicarb/ Potassium Chloride (K-Lyte Cl Eff) 25 meq Q12HR NG 11/28/17 21:00 11/30/17 08:51 Senna/Docusate Sodium (Dominga-Colace) 1 tab BID PO 11/28/17 21:00 11/30/17 08:51 Sennosides (Senokot) 17.2 mg Q12H PRN PO Moderate constipation 11/28/17 18:15 11/30/17 05:06 Bisacodyl (Dulcolax Supp) 10 mg DAILY PRN RECTAL SEVERE CONSITIPATION 11/28/17 18:15 11/29/17 22:33 Nifedipine (Procardia Xl) 60 mg HS PO 11/29/17 21:00 11/29/17 20:25 Pantoprazole Sodium (Protonix Inj) 40 mg Q24H IV PUSH 11/29/17 15:00 11/29/17 17:52 Doxazosin Mesylate (Cardura) 2 mg DAILY PO 11/30/17 09:00 11/30/17 08:51 Objective Remarks GENERAL: Elderly female, sitting up in bed, appears bright and energetic today. SKIN: Warm and dry. HEAD: Normocephalic. EYES: No injection or drainage. NECK: Supple, trachea midline. CARDIOVASCULAR: Regular rate and rhythm RESPIRATORY: clear to auscultation all lung garcia. GASTROINTESTINAL: Abdomen soft, non-tender, mildly distended. incision bender clean. EXTREMITIES: No cyanosis. NEUROLOGICAL: awake, alert. normal speech. moving extremities. Assessment/Plan Problem List: (1) Mesenteric mass ICD Codes: K63.9 - Disease of intestine, unspecified Status: Acute Plan: 11/30: patient clear for discharge when cleared by surgery. follow up in clinic next Sunday. 11/29: s/p biopsy. face sheet faxed to new patient referrals for follow up next Sunday with Dr. lamb. check CBC today and give protonix for report of coffee ground output from OGT. 11/28: Patient having biopsy tomorrow in OR. Patient clear for discharge when cleared by surgeon. I have sent a message to the new patient referrals to have patient follow-up with Dr. Lamb to go over biopsy results. 11/27: await CT chest. will need to consult invasive radiology or surgeon based on CT chest findings. will transfer to oncology --CT a/p showed multiple soft tissue masses in the abdomen, the largest is 5 cm. --no palpable LAD --findings consistent with lymphoma until proven otherwise. Assessment 77y/o female with abdominal masses, concerned for lymphoma. history of hypertension, hypercholesterolemia, TIA and coronary artery disease. s/p coronary artery bypass surgery in 10/2016. Attending Statement The exam, history, and the medical decision-making described in the above note were completed with the assistance of the mid-level provider. I reviewed and agree with the findings presented. I attest that I had a [id number] encounter with the patient on the same day, and personally performed and documented my assessment and findings in the medical record. Denies any new c/o Wanst to go home. Path is pending. Ok to d/c home. FU next week sunday in office . Tri Zavala Nov 30, 2017 09:53 Torin Lamb MD Dec 02, 2017 23:19
--- NOTE | 2017-11-30 14:09 | HHI.PR ---
Subjective Subjective Notes Sitting up eating lunch Bowels working now Objective Vitals/I&O Vital Signs Date Time Temp Pulse Resp B/P (MAP) Pulse Ox O2 Delivery O2 Flow Rate FiO2 11/30/17 11:30 97.3 72 16 145/77 (99) 97 11/29/17 12:00 Nasal Cannula 3 Labs Laboratory Tests Test 11/30/17 04:19 White Blood Count 13.5 Red Blood Count 4.71 Hemoglobin 13.2 Hematocrit 40.3 Mean Corpuscular Volume 85.6 Mean Corpuscular Hemoglobin 28.0 Mean Corpuscular Hemoglobin Concent 32.7 Red Cell Distribution Width 16.2 Platelet Count 189 Mean Platelet Volume 9.7 Neutrophils (%) (Auto) 88.9 Lymphocytes (%) (Auto) 4.8 Monocytes (%) (Auto) 5.7 Eosinophils (%) (Auto) 0.4 Basophils (%) (Auto) 0.2 Neutrophils # (Auto) 12.0 Lymphocytes # (Auto) 0.6 Monocytes # (Auto) 0.8 Eosinophils # (Auto) 0.1 Basophils # (Auto) 0.0 CBC Comment DIFF FINAL Differential Comment Blood Urea Nitrogen 31 Creatinine 1.28 Random Glucose 134 Total Protein 6.0 Albumin 2.9 Calcium Level 8.5 Phosphorus Level 2.5 Magnesium Level 2.3 Alkaline Phosphatase 75 Aspartate Amino Transf (AST/SGOT) 24 Alanine Aminotransferase (ALT/SGPT) 32 Total Bilirubin 0.4 Sodium Level 136 Potassium Level 4.4 Chloride Level 102 Carbon Dioxide Level 24.5 Anion Gap 10 Estimat Glomerular Filtration Rate 40 Radiology Last [address] 11/27/17 0900 Signed Impressions: Service Date/Time: Monday, November 27, 2017 18:39 - CONCLUSION: 1. There is no lymphadenopathy of the chest. 2. Small hiatal hernia. Suspected gastroesophageal reflux disease. 3. Trace atelectasis of both lung bases. No pneumonia. David Pereira MD Cardiovascular: Regular Lungs: Clear Abdomen: Other (lap sites c/d/i; Steri strips in place ) Extremities: No edema A/P Assessment and Plan 77 year old female POD1 dx lap; lap biopsy of mesenteric mass -Regular diet -Pain control -Okay to restart Plavix Sunday -Follow up with Dr. Benton December 10 at 1:40PM -ILSA gonzales for Tamiko Daly/First Jeevan YBARRA Nov 30, 2017 14:09
[2017-11-30] MEDS ORDERED: CARD2TAB PO (15:45)
[2017-11-30] MEDS ORDERED: NIFE60TA8 PO (15:45)
[2017-11-30] MEDS ORDERED: PLAV75TA29 PO (15:45)
[2017-11-30] MEDS ORDERED: HYDR-3516 PO (15:45)
--- NOTE | 2017-11-30 15:51 | HHI.DS ---
Discharge Summary Admission Date Nov 26, 2017 at 16:53 Discharge Date: Nov 30, 2017 Admitting Diagnosis Mesenteric masses (1) Mesenteric mass ICD Code: K63.9 - Disease of intestine, unspecified Diagnosis: Principal Status: Acute (2) Hypertensive emergency ICD Code: I16.1 - Hypertensive emergency (3) Left hip pain ICD Code: M25.552 - Pain in left hip Status: Acute (4) Abdominal pain, left lower quadrant ICD Code: R10.32 - Left lower quadrant pain Status: Acute (5) Intractable pain ICD Code: R52 - Pain, unspecified Procedures 1. Diagnostic laparoscopy. 2. Laparoscopic biopsy of mesenteric lymph node. 3. Laparoscopic wedge resection of mesenteric mass Brief History - From Admission 77-year-old female with PMH of CABG, HTN, HLD, TIA, reduced renal function, and OA who presents to the ED with complaints of left hip pain. Patient is seen and examined in the ED friend at bedside with patients permission. She states that she noticed left hip pain on Sunday the . At first she thought it might have been related to the fact that she had hurt her right foot and was limping causing her to offload her weight on the left side. She was initially taking Tylenol with relief, however pain progressively became worse and worse to the point that she was unable to sleep last night. She repots pain as aching, rates it 10/10, movement and walking makes it worse, pain will go to her back and down the leg. The pain will also go to the left side of her abdomen. She repots vomiting earlier today around 3pm while in the ED. Patient also noticed that as of today she has been having bowel frequency, but denies any diarrhea, black stools or melena. While at home she denies any fevers, chills, nausea, vomiting , diarrhea, hematuria, weight loss, dizziness, lightheadedness, chest pain, or SOB. Patient states that she feels like after her CABG in October of 2016 things have not been the same. She has also noticed two abdominal masses that have appeared, one that she can find and point out at the time of my exam. CBC/BMP: 11/30/17 0419 11/30/17 0419 Significant Findings Laboratory Tests Test 11/28/17 07:53 11/29/17 07:14 11/29/17 10:14 11/29/17 13:40 Blood Urea Nitrogen 22 MG/DL (7-18) 20 MG/DL (7-18) Creatinine 1.04 MG/DL (0.50-1.00) 1.01 MG/DL (0.50-1.00) Potassium Level 2.8 MEQ/L (3.5-5.1) Estimat Glomerular Filtration Rate 51 ML/MIN (>89) 53 ML/MIN (>89) White Blood Count 12.2 TH/MM3 (4.0-11.0) Red Blood Count 5.57 MIL/MM3 (4.00-5.30) Hemoglobin 15.5 GM/DL (11.6-15.3) Hematocrit 47.0 % (35.0-46.0) Neutrophils (%) (Auto) 94.0 % (16.0-70.0) Lymphocytes (%) (Auto) 4.1 % (9.0-44.0) Neutrophils # (Auto) 11.5 TH/MM3 (1.8-7.7) Lymphocytes # (Auto) 0.5 TH/MM3 (1.0-4.8) Test 11/30/17 04:19 White Blood Count 13.5 TH/MM3 (4.0-11.0) Neutrophils (%) (Auto) 88.9 % (16.0-70.0) Lymphocytes (%) (Auto) 4.8 % (9.0-44.0) Neutrophils # (Auto) 12.0 TH/MM3 (1.8-7.7) Lymphocytes # (Auto) 0.6 TH/MM3 (1.0-4.8) Blood Urea Nitrogen 31 MG/DL (7-18) Creatinine 1.28 MG/DL (0.50-1.00) Random Glucose 134 MG/DL (74-106) Total Protein 6.0 GM/DL (6.4-8.2) Albumin 2.9 GM/DL (3.4-5.0) Estimat Glomerular Filtration Rate 40 ML/MIN (>89) Imaging Last Impressions Chest CT 11/27/17 0900 Signed Impressions: Service Date/Time: Monday, November 27, 2017 18:39 - CONCLUSION: 1. There is no lymphadenopathy of the chest. 2. Small hiatal hernia. Suspected gastroesophageal reflux disease. 3. Trace atelectasis of both lung bases. No pneumonia. David Pereira MD Abdomen/Pelvis CT 11/26/17 1300 Signed Impressions: Service Date/Time: Sunday, November 26, 2017 15:01 - CONCLUSION: 1. Multiple mesenteric masses most characteristic of adenopathy. The largest measures up to 5 cm. There is of concern for lymphoma 2. Small retrocardiac hiatal hernia. 3. Status post median sternotomy. 4. The spleen is unremarkable. 5. Evidence of central canal stenosis at the L5-S1 level. Kayden Mackay MD Hip and Pelvis X-Ray 11/26/17 0000 Signed Impressions: Service Date/Time: Sunday, November 26, 2017 11:58 - CONCLUSION: No acute fracture. Wicho Butler MD PE at Discharge GENERAL: Laying in bed reading a book. CARDIOVASCULAR: Regular rate and rhythm without murmurs, gallops, or rubs. RESPIRATORY: Clear to auscultation. Breath sounds equal bilaterally. No wheezes GASTROINTESTINAL: Abdomen soft, nondistended, normoactive bowel sounds. Minimal tenderness in the suprapubic area. Steri-Strips in place, dry clean and intact. MUSCULOSKELETAL: Extremities without \edema. No joint tenderness, effusion, or edema noted. NEUROLOGICAL: Awake and alert x3. Normal speech. PSYCH: Mood and affect appropriate. Pt update on day of discharge Patient feeling much better now. Had multiple bowel movements today. The first 1 was formed, and the last 2 were loose. No nausea or vomiting. Denies any chest pain or shortness of breath. Pain is controlled. Hospital Course Patient admitted with intractable hip pain/ Multiple mesenteric masses Hip/Pelvis x-ray reviewed, no acute fracture. Abdominal/pelvis CT: multiple mesenteric masses characteristic of adenopathy w/ largest 5cm, concerning for lymphoma; Small retrocardiac hiatal hernia, and central canal stenosis at L5- S1. Oncology evaluated patient and followed on the hospital. General surgery was also consulted and took the patient to the OR for biopsy. She is status post Laparoscopic biopsy of mesenteric lymph node and laparoscopic wedge resection of mesenteric mass. Patient was cleared by general surgery for discharge. Prescription for pain medication in chart. Hypertensive urgency BP on admission 251/117 HR 66, most likely secondary to pain. Improved. Medications were adjusted. Continue nifedipine XL 60 mg p.o. at at bedtime, continue Coreg and Cardura 2 mg p.o. daily. Hx CABG w/pacer in place > than 1 year since surgery. - hold ASA and Plavix for possible biopsy. Okay to resume them on Sunday per general surgery - BP control, does not tolerate statins. JUDY/ Hypokalemia Exacerbated by Bumex. - hold Bumex. - replete potassium and monitor BMP. - Avoid nephrotoxins. Creatinine continues to trend down to 1.01. Continue to monitor BMP. Pt Condition on Discharge: Stable Discharge Disposition: Discharge Home Discharge Time: > 30 minutes Discharge Instructions DIET: Follow Instructions for: Heart Healthy Diet Activities you can perform: See Additionl Instruction Other Activity Instructions: per GS recs Follow up Referrals: Oncology - 12/07/17 PCP Follow-up - 1 Week Surgical - 12/10/17 with Kj Benton MD Appt set for SundayDecember 10 at 1:40PM New Medications: Doxazosin (Cardura) 2 Mg Tab 2 MG PO DAILY, #30 TAB Hydrocodone/Acetaminophen (Hydrocodone-Acetamin 5-325 mg) 5 Mg-325 Mg Tablet 1 TAB PO Q4-6H PRN for pain1-5, #30 Nifedipine ER 24 HR (Nifedipine ER 24 HR) 60 Mg Tab 60 MG PO HS, #30 TAB Changed Medications: Clopidogrel (Plavix) 75 Mg Tab 75 MG PO DAILY for Blood Clot Prevention, #30 TAB 0 Refills (Medication details modified) pt to resume on sunday12/02/17 Continued Medications: Carvedilol (Carvedilol) 12.5 Mg Tab 12.5 MG PO BID, #60 TAB 0 Refills Cholecalciferol (Vitamin D3) 5,000 Unit Cap 5000 UNITS PO DAILY for Nutritional Supplement, #30 CAP 0 Refills Discontinued Medications: Bumetanide (Bumetanide) 2 Mg Tab 2 MG PO DAILY, TAB 0 Refills Nifedipine ER 24 HR (Nifedipine ER 24 HR) 30 Mg Tab 30 MG PO DAILY, #30 TAB 0 Refills Sonya Bernstein MD Nov 30, 2017 15:51
[2017-11-30] MEDS ORDERED: ASPI81CH7 CHEW (15:52)
== END 2017-11-30 18:41 | disposition home or self-care (01) | DRG 824 ==
LOC: NEPD 11:23 → NEDA 16:53 → OBSVTOIN 16:53 → NEPGCP 18:17 → HCIN 11-27 22:10
PROVIDERS: ADMIT Family Medicine; ATTEND Family Medicine
PROC: 0DBV4ZX Excision of Mesentery, Percutaneous Endoscopic Approach, Diagnostic (ICD-10-PCS; 2017-11-29)
PROC: 07BB4ZX Excision of Mesenteric Lymphatic, Percutaneous Endoscopic Approach, Diagnostic (ICD-10-PCS; principal; 2017-11-29 08:55)
DX: C85.93 Non-Hodgkin lymphoma, unspecified, intra-abdominal lymph nodes (principal); N17.9 Acute kidney failure, unspecified; I16.1 Hypertensive emergency; D75.1 Secondary polycythemia; I10 Essential (primary) hypertension; R19.09 Other intra-abdominal and pelvic swelling, mass and lump; Z95.1 Presence of aortocoronary bypass graft; E78.5 Hyperlipidemia, unspecified; Z86.73 Personal history of transient ischemic attack (TIA), and cerebral infarction without residual deficits; K44.9 Diaphragmatic hernia without obstruction or gangrene; M48.061 Spinal stenosis, lumbar region without neurogenic claudication; E87.6 Hypokalemia; D72.829 Elevated white blood cell count, unspecified; E78.00 Pure hypercholesterolemia, unspecified; I25.10 Atherosclerotic heart disease of native coronary artery without angina pectoris; M25.552 Pain in left hip; N28.9 Disorder of kidney and ureter, unspecified; Z79.02 Long term (current) use of antithrombotics/antiplatelets; M19.90 Unspecified osteoarthritis, unspecified site; Z90.710 Acquired absence of both cervix and uterus; Z95.0 Presence of cardiac pacemaker; Z79.82 Long term (current) use of aspirin; Z88.8 Allergy status to other drugs, medicaments and biological substances
CPT/HCPCS: 71260; 73502; 74177; 80048; 80053; 81001; 82378; 83615; 83690; 83735; 84100; 85025; 85610; 85730; 86301; 86304; 88184; 88185; 88305; 88331; 88341; 93005; 94150; C9113; J0131; J0690; J0780; J1644; J2270; J2405; J2550; J3010; J3480; J7040; Q9967

== ENCOUNTER 2018-02-19 11:51 | Inpatient (IN) ==
[2018-02-19] MEDS ORDERED: hydrALAZINE HCl Inj 20 MG/ML Vial IV.PUSH ONE (12:00)
[2018-02-19] MEDS ORDERED: Ketorolac Inj 30 MG/ML (IVP) Vial IV.PUSH ONE (12:00)
[2018-02-19] MEDS ORDERED: Lidocaine PF 1% Inj 5 ML Syringe INFILTRATN ONE (12:00)
[2018-02-19] MEDS ORDERED: Neostigmine Inj 5 MG/5 ML Syringe IV.PUSH ONE (12:00)
[2018-02-19] MEDS ORDERED: Sodium Chlor 0.9% Inj 500 ML IV.SIG ONE (12:00)
[2018-02-19] MEDS ORDERED: Glycopyrrolate Inj 1 MG/5 ML Syringe IV.PUSH ONE (12:00)
[2018-02-19] MEDS ORDERED: Labetalol HCl Inj 100 MG/20 ML Vial IV.CONT ONE (12:00)
[2018-02-19] MEDS ORDERED: Metoprolol Tartrate 25 MG Tablet PO SCH (12:45)
[2018-02-19] MEDS ORDERED: Chlorhexidine Gluconate 2% 1 Pack (2 Cloths) TOPICAL SCH (12:45)
[2018-02-19 12:54] LABS: Baso # (Auto) 0.1 th/mm3 (0.0-0.2); Baso % (Auto) 0.9 % (0.0-2.0); Eos # (Auto) 0.3 th/mm3 (0.0-0.4); Eos % (Auto) 3.3 % (0.0-4.0); Hemoglobin 14.8 gm/dL (11.6-15.3); Lymph # (Auto) 0.9 th/mm3 (1.0-4.8); Lymph % (Auto) 9.7 % (9.0-44.0); Mean Corpuscular HGB Conc 33.6 % (32.0-36.0); Mean Corpuscular Hemoglobin 28.3 pg (27.0-34.0); Mean Corpuscular Volume 84.2 fL (80.0-100.0); Mean Platelet Volume 9.5 fL (7.0-11.0); Mono # (Auto) 0.6 th/mm3 (0.0-0.9); Mono % (Auto) 6.4 % (0.0-8.0); Neut # (Auto) 7.2 th/mm3 (1.8-7.7); Neut % (Auto) 79.7 % (16.0-70.0); Platelet Count 233 th/mm3 (150-450); Red Blood Count 5.23 mil/mm3 (4.00-5.30); Red Cell Distribution Width 15.6 % (11.6-17.2)
[2018-02-19] MEDS ORDERED: ceFAZolin 2 GM IV; once IV.SIG SCH (13:00)
[2018-02-19] MEDS ORDERED: Sodium Chlor 0.9% Inj 500 ML IV.SIG SCH (13:00)
[2018-02-19 13:52] LABS: Carbon Dioxide 21.3 meq/L (21.0-32.0); Potassium 3.5 meq/L (3.5-5.1)
[2018-02-19] MEDS ORDERED: Bupivacaine/Epinephrine 0.5% Inj 50 ML Vial ONE (15:29)
[2018-02-19] MEDS ORDERED: Bisacodyl 10 MG Supp RECTAL PRN (18:53)
[2018-02-19] MEDS ORDERED: Post-op Orders (for Pharmacy) OTHER ONE (18:53)
[2018-02-19] MEDS ORDERED: Promethazine 25 MG Supp RECTAL PRN (18:53)
[2018-02-19] MEDS ORDERED: fentaNYL Citrate Inj 100 MCG/2 ML Ampul ONE (19:13)
[2018-02-19] MEDS ORDERED: *morphine SULFATE 4 MG/ML PERIprocedure ONLY ONE ×2 (19:19→19:55)
[2018-02-19] MEDS ORDERED: *Meperidine Inj 25 MG/ML Vial PERIprocedural Use ONLY ONE (19:23)
[2018-02-19] MEDS ORDERED: *Ondansetron Inj 4 MG/2 ML Vial PERIprocedural Use ONLY ONE (20:26)
--- NOTE | 2018-02-19 21:44 | P.OP ---
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
[2018-02-19] MEDS: HYDROmorphone PF Inj 2 MG/ML Vial IV.PUSH PRN (21:48)
[2018-02-19] MEDS: Senna/Docusate Sodium 8.6/50 MG Tablet PO SCH (21:50)
[2018-02-20] MEDS: ceFAZolin Inj 1,000 MG in Sodium Chlor 0.9% Inj 100 ML IV.SIG SCH ×3 (00:51→16:45)
[2018-02-20] MEDS: HYDROmorphone PF Inj 2 MG/ML Vial IV.PUSH PRN ×5 (01:07→23:37)
[2018-02-20] MEDS: Ketorolac Inj 30 MG/ML (IVP) Vial IV.PUSH SCH ×6 (05:11→19:00)
[2018-02-20] MEDS: Sod Chloride 0.9% Inj 1,000 ML IV.CONT SCH ×4 (06:19→23:26)
[2018-02-20] MEDS: Senna/Docusate Sodium 8.6/50 MG Tablet PO SCH ×2 (10:01→20:55)
--- NOTE | 2018-02-20 12:28 | P.CONIM ---
History of Present Illness Consult date: 02/20/18 Requesting Physician: Kj Benton Reason for Consult: Medical management Primary Care Provider: Ms Meaghan CAMERON Estimable Chief Complaint: Mass History of Present Illness: The patient is a 77-year-old female who was recently diagnosed with a carcinoid tumor who is presenting to the hospital for scheduled resection of her mass. The patient states that towards the end of November she had left lower quadrant and groin pain. She came to the emergency department and was found to have carcinoid tumor. She had a biopsy done and was scheduled for surgery at this time. She says that she has been doing well. She last ate 7 PM the night before last. She denies any recent abdominal pain. She has not been nauseous. She has not had constipation or diarrhea. She denies any fevers. She says she is currently experiencing dry mouth. She has been using ice chips. She is hoping to be on clear liquids tomorrow. She says her blood pressure fluctuates even at home. Discussed with nursing at the bedside. 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 Cataract (lens) fragments in eye following cataract surgery, bilateral High cholesterol History of anesthesia reaction History of hysterectomy Hypertension Jaw fracture Pacemaker Right arm fracture - Surgical History Surgical History: Surgical History (Last Updated 02/15/18 @ 14:05 by Frantz Cardenas RN) History of tonsillectomy S/P CABG x 5 - Tobacco History Second Hand Smoke Exposure: No Tobacco Use In Past 30 Days: No Smoking Status: Never smoker - Alcohol History How Often Do You Have a Drink Containing Alcohol: Monthly or less - Substance Use History Substance History: No History of Abuse - Travel History Recent Travel in the [place] Within the Last 8 Weeks: No Recent Travel Out of the Country Within the Last 8 Weeks: No Medications and Allergies Active Medications: Active Medications Hydrocodone Bitart/Acetaminophen ([place] 5/325) 1 tab PO Q4H PRN PRN Reason: PAIN SCALE 1 TO 5 Al Hydroxide/Mg Hydroxide (Milk Of Magnesia Liq) 30 ml PO Q12H PRN PRN Reason: Mild Constipation Bisacodyl (Dulcolax Supp) 10 mg RECTAL DAILY PRN PRN Reason: SEVERE CONSITIPATION Carvedilol (Coreg) 12.5 mg PO BID [facility] Chlorhexidine Gluconate (Chlorhexidine 2% Cloth) 3 pack TOPICAL [facility] Stop: 02/22/18 12:44 Clonidine HCl (Catapress-Tts 0.2 Mg Patch.7d) 1 patch T-DERMAL Q7D [facility] Doxazosin Mesylate (Cardura) 2 mg PO DAILY [facility] Hydromorphone HCl (Dilaudid Pf Inj) 1 mg IV.PUSH Q2H PRN PRN Reason: BREAKTHROUGH PAIN Last Admin: 02/20/18 07:23 Dose: 1 mg Lactated Ringer's (Lr 1000 Ml Inj) 1,000 mls @ 30 mls/hr IV.SIG .Q24H [facility] Stop: 02/22/18 12:44 Last Admin: 02/20/18 06:19 Dose: Not Given Sodium Chloride (Ns Inj) 500 mls @ 30 mls/hr IV.SIG .Q10H [facility] Stop: 02/22/18 12:44 Cefazolin Sodium/Dextrose (Ancef 2 Gm Premix Inj) 2 gm in 50 mls @ 100 mls/hr IV.SIG [facility] Stop: 02/22/18 12:59 Last Admin: 02/19/18 16:06 Dose: 100 mls/hr Cefazolin Sodium 1,000 mg/ (Sodium Chloride) 100 mls @ 200 mls/hr IV.SIG Q8H [facility] Stop: 02/20/18 16:29 Last Admin: 02/20/18 07:33 Dose: 200 mls/hr Sodium Chloride (Ns Inj) 1,000 mls @ 100 mls/hr IV.CONT .Q10H [facility] Last Admin: 02/20/18 11:44 Dose: 100 mls/hr Ketorolac Tromethamine (Toradol Inj) 15 mg IV.PUSH Q6H [facility] Stop: 02/24/18 18:59 Last Admin: 02/20/18 11:46 Dose: 15 mg Lactulose (Lactulose Liq) 30 ml PO DAILY PRN PRN Reason: SEVERE CONSITIPATION Metoprolol Tartrate (Lopressor) 25 mg PO [facility] Stop: 02/22/18 12:44 Miscellaneous Information (Misc Nursing Information) 1 each OTHER UNSCH PRN PRN Reason: SEE LABEL COMMENTS Stop: 02/20/18 18:55 Non-Formulary Medication (Nifedipine [Nifedipine]) 60 mg PO 0500 [facility] Non-Formulary Medication (Potassium [Potassium]) 40 meq PO DAILY [facility] Ondansetron HCl (Zofran Odt) 4 mg PO Q6H PRN PRN Reason: NAUSEA OR VOMITING Last Admin: 02/20/18 07:30 Dose: 4 mg Ondansetron HCl (Zofran Inj) 4 mg IV.PUSH Q6H PRN PRN Reason: NAUSEA OR VOMITING Oxycodone/Acetaminophen (Percocet 5/325 Mg) 2 tab PO Q4H PRN PRN Reason: PAIN SCALE 6 TO 10 Patch Removal (Remove Old Patch) 1 each T-DERMAL Q7D [facility] Povidone Iodine (Betadine 5% Antisepsis Kit) 1 applicatio EACH NARE [facility] Stop: 02/22/18 12:44 Promethazine HCl (Phenergan) 25 mg PO Q6H PRN PRN Reason: NAUSEA OR VOMITING Promethazine HCl (Phenergan Supp) 25 mg RECTAL Q6H PRN PRN Reason: NAUSEA OR VOMITING Senna/Docusate Sodium (Dominga-Colace) 1 tab PO BID [facility] Last Admin: 02/20/18 10:01 Dose: Not Given Sennosides (Senokot) 17.2 mg PO Q12H PRN PRN Reason: Moderate Constipation Allergies Allergy/AdvReac Type Severity Reaction Status Date / Time amlodipine Allergy Severe Anaphylaxis Verified 02/19/18 12:40 lisinopril Allergy Severe Anaphylaxis Verified 02/19/18 12:40 [facility] Reductase Allergy Severe Cough Verified 02/19/18 12:40 Inhibitor Home Medications Medication Instructions Recorded Confirmed Type aspirin [Aspir-81] 81 mg PO DAILY 02/15/18 02/19/18 History bumetanide 1 mg PO DAILY 02/15/18 02/19/18 History carvedilol 12.5 mg PO BID 02/15/18 02/19/18 History cholecalciferol (vitamin D3) 5,000 unit PO DAILY 02/15/18 02/19/18 History [Vitamin D3] coQ10 (ubiquinol) 100 mg PO DAILY 02/15/18 02/19/18 History doxazosin 2 mg PO DAILY 02/15/18 02/19/18 History magnesium 500 mg PO DAILY 02/15/18 02/19/18 History nifedipine 60 mg PO 0500 02/15/18 02/19/18 History omega 7-cfs-twd-fish oil [Fish Oil] 1 cap PO DAILY 02/15/18 02/19/18 History potassium 40 meq PO DAILY 02/15/18 02/19/18 History Exam Vital signs: Vital Signs 02/19/18 12:47 02/19/18 19:00 02/19/18 19:15 Temperature 98.4 F 97.9 F Pulse Rate 73 69 62 Respiratory Rate 20 18 18 Blood Pressure 139/61 162/73 H 156/46 H Pulse Oximetry 95 94 L 96 02/19/18 19:30 02/19/18 19:45 02/19/18 20:00 Temperature Pulse Rate 62 60 60 Respiratory Rate 18 18 18 Blood Pressure 150/70 H 148/70 H 153/67 H Pulse Oximetry 96 96 96 02/19/18 20:15 02/19/18 20:50 02/19/18 22:00 Temperature 97.6 F 97.5 F L Pulse Rate 60 76 Respiratory Rate 18 18 16 Blood Pressure 153/67 H 175/87 H Pulse Oximetry 96 96 02/20/18 00:50 02/20/18 04:30 02/20/18 07:49 Temperature 97.3 F L 98.0 F Pulse Rate 83 81 Respiratory Rate 18 17 16 Blood Pressure 201/86 H 188/85 H Pulse Oximetry 96 96 02/20/18 08:00 Temperature 97.8 F Pulse Rate 67 Respiratory Rate 22 Blood Pressure 177/72 H Pulse Oximetry 93 L Intake & Output 02/19/18 02/20/18 02/20/18 18:59 06:59 18:59 Intake Total 1700 / 1700 200 / 200 Output Total 250 / 250 1140 / 1140 Balance 1450 / 1450 -940 / -940 - -10 Weight 66.9 kg 66.9 kg Intake: IV 200 / 200 Ancef Inj 1,000 MG In NS Inj 100 / 100 100 ML @ 200 mls/hr IV.SIG Q8H [facility] Rx#:[id number] Flagyl 500 MG Inj 100 ML @ 200 100 / 100 mls/hr IV.SIG Q8H [facility] Rx#: [id number] Oral 0 / 0 Anesthesia Amount 1700 / 1700 Output: Estimated Blood Loss 50 / 50 Urine Amount (Catheter) 200 / 200 1000 / 1000 Indwelling Urethral Catheter 200 / 200 1000 / 1000 Wound Drainage 140 / 140 10 / 10 # 1 Abdomen 140 / 140 10 / 10 Other: Date of Last Bowel Movement 02/19/18 Weight On Admission 66.9 kg Narrative: GENERAL: NAD. HEENT: NC, AT. NGT in place. LUNGS: CTAB. CARDIAC: RRR. Systolic murmur appreciated. GI: Bandages in place with some saturation. Soft. EXTREMITIES: No edema. NEURO: No gross deficits. PSYCH: Mood and affect appropriate. Results - Labs CBC & Chem 7: 02/19/18 12:40 02/19/18 12:40 Labs: Laboratory Results - last 24 hr 02/19/18 02/19/18 02/19/18 12:40 12:40 12:40 WBC 9.0 RBC 5.23 Hgb 14.8 Hct 44.0 MCV 84.2 MCH 28.3 MCHC 33.6 RDW 15.6 Plt Count 233 MPV 9.5 Neut % (Auto) 79.7 H Lymph % (Auto) 9.7 [place] % (Auto) 6.4 Eos % (Auto) 3.3 Baso % (Auto) 0.9 Neut # (Auto) 7.2 Lymph # (Auto) 0.9 L [place] # (Auto) 0.6 Eos # (Auto) 0.3 Baso # (Auto) 0.1 WBC Differential . Differential Comment Auto diff final Sodium 142 Potassium 3.5 Chloride 108 H Carbon Dioxide 21.3 Anion Gap 13 BUN 30 H Creatinine 1.02 H Estimated GFR 52 L Random Glucose 92 Calcium 9.0 Blood Type O Positive Blood Type Recheck Required Antibody Screen Negative Assessment and Plan - Plan Carcinoid tumor S/p resection by GS on 02/19. - pain control. - wound care and diet per surgery. - IS. - rehab efforts. HTN Blood pressure becomes quite elevated at times. - PO meds on hold s/t NGT and NPO status. Will resume when OK with surgery. - clonidine patch ordered. Adjust dose as needed. - pain control. CAD S/p CABG x 5. No chest pain or shortness of breath at this time. - resume regimen once tolerating PO. Renal insufficiency Chronic problem. - follow BMP and avoid nephrotoxins. Hypokalemia On potassium as an outpt. - resume potassium when tolerating diet. - BMP in AM. PPx: Per surgery Discussed Condition With: Dr. Benton, pt, Audra (nurse)
--- NOTE | 2018-02-20 12:52 | P.PNGS ---
Subjective Patient reports: no new complaints (no nausea), no flatus Physical Exam Vital signs: Vital Signs 02/19/18 12:47 02/19/18 19:00 02/19/18 19:15 Temperature 98.4 F 97.9 F Pulse Rate 73 69 62 Respiratory Rate 20 18 18 Blood Pressure 139/61 162/73 H 156/46 H Pulse Oximetry 95 94 L 96 02/19/18 19:30 02/19/18 19:45 02/19/18 20:00 Temperature Pulse Rate 62 60 60 Respiratory Rate 18 18 18 Blood Pressure 150/70 H 148/70 H 153/67 H Pulse Oximetry 96 96 96 02/19/18 20:15 02/19/18 20:50 02/19/18 22:00 Temperature 97.6 F 97.5 F L Pulse Rate 60 76 Respiratory Rate 18 16 Blood Pressure 153/67 H 175/87 H Pulse Oximetry 96 96 02/20/18 00:50 02/20/18 04:30 02/20/18 07:49 Temperature 97.3 F L 98.0 F Pulse Rate 83 81 Respiratory Rate 18 17 16 Blood Pressure 201/86 H 188/85 H Pulse Oximetry 96 96 02/20/18 08:00 Temperature 97.8 F Pulse Rate 67 Respiratory Rate 22 Blood Pressure 177/72 H Pulse Oximetry 93 L Intake & Output 02/19/18 02/20/18 02/20/18 18:59 06:59 18:59 Intake Total 1700 / 1700 200 / 200 Output Total 250 / 250 1140 / 1140 10 / 10 Balance 1450 / 1450 -940 / -940 -10 / -10 Weight 66.9 kg 66.9 kg Intake: IV 200 / 200 Ancef Inj 1,000 MG In NS Inj 100 / 100 100 ML @ 200 mls/hr IV.SIG Q8H [facility] Rx#:[id number] Flagyl 500 MG Inj 100 ML @ 200 100 / 100 mls/hr IV.SIG Q8H [facility] Rx#: [id number] Oral 0 / 0 Anesthesia Amount 1700 / 1700 Output: Estimated Blood Loss 50 / 50 Urine Amount (Catheter) 200 / 200 1000 / 1000 Indwelling Urethral Catheter 200 / 200 1000 / 1000 Wound Drainage 140 / 140 10 / 10 # 1 Abdomen 140 / 140 10 / 10 Other: Date of Last Bowel Movement 07/17/18 Weight On Admission 66.9 kg - Constitutional no acute distress - Routine Respiratory Exam Present: CTA bilaterally - Routine Cardiovascular Exam Present: RRR - Routine Abdominal Exam Present: soft (andrew in place, narayan serosang, ) - Urinary Catheter Management Indwelling Urethral Catheter Cath placed during this visit: yes Reason for continuing: Hourly intake/output Insertion date: 02/19/18 Insertion time: 16:17 Assessment and Plan - Plan POD 1 Dx lap, ex lap sb resection resection of carcinoid PLAN NG sxn narayan sxn ok for sips and ice chips d/c green dvt ppx medicine hepas consult for htn and medical mgnt
--- NOTE | 2018-02-20 13:31 | MP ---
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 PROCEDURE PERFORMED: 1. Diagnostic laparoscopy. 2. Exploratory laparotomy. 3. Small-bowel resection with lymphadenectomy and resection of small bowel carcinoid tumor. SURGEON: Kj Benton MD FUEL STORAGE TECHNICIAN: Dru Pan MD. Dr. Pan was necessary due to the complexity of the surgical case. Dr. Pan assisted in camera control, retraction and facilitating the case. ANESTHESIA: GETA. IV FLUIDS: See anesthesia sheet. ESTIMATED BLOOD LOSS: 25 mL. DRAINS: A 7-Kyrgyz Yousif drain. WOUND CLASSIFICATION: Clean/contaminated. SPECIMENS: Small bowel with mesentery and carcinoid tumor 33 cm in length. FINDINGS: A large carcinoid tumor base of mesentery and small bowel, along with small lesions on small bowel x 2. Good hemostasis. COMPLICATIONS: None. INDICATIONS FOR PROCEDURE: This is a 77-year-old female who presents with a recent history of hospital admission. She was noted to have significant lymphadenopathy, along with a 5 cm mass intra-abdominally. She underwent a biopsy of this with finding of carcinoid tumor and negative for any lymphoma. Therefore, decision was made for resection for negative margins. DETAILS OF PROCEDURE: The patient was taken to the operating suite, placed in supine position. She was prepped and draped in the usual sterile fashion after induction of general endotracheal anesthesia. A brief timeout done stating correct patient, procedure, surgical site. We were all in agreement with this. Local anesthetic injected in the left upper quadrant. A small stab odette incision was made with a 15 blade. A Veress needle was used. Intraabdominal placement was confirmed with saline drop test. The abdomen insufflated to 15 mm pneumoperitoneum. Veress needle changed to a 5 mm trocar and scope. On cursory inspection, no evidence of injury. Two other ports were placed including two 5 left lower quadrant and left mid quadrant. The abdomen was examined for any abnormalities or metastatic disease. The liver was examined. The small bowel was run from the terminal ileum to the ligament of Treitz. The small bowel was noted to have 2 small lesions that were somewhat hard and palpable. Upon examination of the mesentery mid small bowel, there was a very large mass noted. Following this, commencement with the primary operation of exploratory laparotomy was done. The ports and trocars were removed and pneumoperitoneum was removed. A 15 blade was used to make an incision at midline. This was approximately 6 cm. Further dissection done with electro Bovie cautery down through the subcutaneous tissue and the fascia. The abdomen entered safely with Metzenbaum scissors. The wound protector Nima was placed. The abdomen was further explored with palpation of the liver, and colon and small bowel. The small bowel lesions were confirmed by palpation and again noted to be very small. Decision was made for en bloc resection with this, the lymph nodes and the carcinoid tumor. A point proximal on the small bowel was transected with a blue load Endo-GREG stapler. The Harmonic scalpel was used to transect the mesentery. This was done to encompass lymph nodes and carcinoid tumor. The distal portion of the small bowel, approximately 30 cm was transected with a blue load Endo GREG stapler, again the mesentery taken down with a Harmonic scalpel. Getting proximal to the mesenteric vessels, small bleeders were oversewn with 3-0 silk stitches. The tumor lymph nodes and small bowel were removed in its entirety placing to pathology. Hemostasis was obtained. The ends of the bowel were observed for approximately 10 minutes with evidence of good viable flow and noted to be nice and pink. At this point, a primary anastomosis was done. A stay suture was placed 3-0 silk. Small enterotomies were made. A blue load Endo GREG 55 was used to create a through and through layer. Allis clamps were used to grasp the bowel and a TA-60 was used. Lembert sutures were done to oversew the bowel in interrupted fashion. A crotch stitch was placed. The mesenteric defect was closed with a 3-0 silk suture. A small piece SNoW anticoagulant material was placed within this. The abdomen thoroughly irrigated. No evidence of bleeding. Good hemostasis. Next, a 7-Kyrgyz drain was placed in the pelvis then taken through one of the port sites and secured with 2-0 nylon. 0 looped PDS was used to close the fascia followed by susana, DINH dressing and sterile dressings. The patient tolerated procedure well. No intraoperative complications. All lap and instrument counts were correct at the end of the procedure. The patient was extubated and taken Stable to PACU. MD CASANDRA Evans , 01:01 PM , 01:28 PM
[2018-02-20] MEDS ORDERED: hydrALAZINE HCl Inj 20 MG/ML Vial IV.PUSH ONE (22:51)
[2018-02-21] MEDS: Ketorolac Inj 30 MG/ML (IVP) Vial IV.PUSH SCH ×3 (01:29→13:10)
[2018-02-21] MEDS: Sod Chloride 0.9% Inj 1,000 ML IV.CONT SCH ×2 (03:37→13:13)
[2018-02-21] MEDS: HYDROmorphone PF Inj 2 MG/ML Vial IV.PUSH PRN (08:56)
[2018-02-21] MEDS: Carvedilol 12.5 MG Tablet PO SCH ×2 (08:57→21:35)
[2018-02-21] MEDS: Doxazosin 1 MG Tablet PO SCH (08:58)
[2018-02-21] MEDS: Senna/Docusate Sodium 8.6/50 MG Tablet PO SCH ×2 (08:58→21:35)
--- NOTE | 2018-02-21 11:40 | P.PNIM ---
Subjective Interval history: The patient was sitting up in a chair. She said the ice chips were helping. She was hoping she could have some broth seen. She would like to have the NGT removed. Discussed with nursing. Physical Exam Vital signs: Vital Signs 02/20/18 12:00 02/20/18 15:13 02/20/18 15:14 Temperature 97.9 F Pulse Rate 70 Respiratory Rate 20 17 17 Blood Pressure 175/70 H Pulse Oximetry 95 02/20/18 16:00 02/20/18 16:40 02/20/18 20:00 Temperature 98 F 98.3 F Pulse Rate 71 81 Respiratory Rate 22 18 Blood Pressure 172/71 H 190/80 H Pulse Oximetry 94 L 96 93 L 02/20/18 22:38 02/21/18 00:00 02/21/18 04:00 Temperature 97.9 F 98.0 F Pulse Rate 94 H 94 H Respiratory Rate 19 18 Blood Pressure 190/70 H 186/77 H 195/87 H Pulse Oximetry 93 L 94 L 02/21/18 08:00 Temperature 97.8 F Pulse Rate 81 Respiratory Rate 17 Blood Pressure 187/82 H Pulse Oximetry 93 L Intake & Output 02/20/18 02/21/18 02/21/18 18:59 06:59 18:59 Intake Total 1100 / 1100 Output Total 100 / 100 Balance 1000 / 1000 Weight 66.69 kg Intake: IV 1100 / 1100 NS Inj 1,000 ML @ 100 mls/hr IV 750 / 750 .CONT .Q10H DILIA Rx#:[id number] Ancef 2 GM Premix Inj 2 gm In 50 / 50 50 ml @ 100 mls/hr IV.SIG CAPACITOR TESTER DILIA Rx#:[id number] Ancef Inj 1,000 MG In NS Inj 200 / 200 100 ML @ 200 mls/hr IV.SIG Q8H DILIA Rx#:[id number] Flagyl 500 MG Inj 100 ML @ 200 100 / 100 mls/hr IV.SIG Q8H DILIA Rx#: [id number] Oral 0 / 0 Output: Gastric Drainage 50 / 50 Right Nare Nasogastric Tube 50 / 50 Wound Drainage 50 / 50 # 1 Abdomen 50 / 50 Other: # Voids 1 2 Date of Last Bowel Movement 02/19/18 02/19/18 # Bowel Movements 0 Narrative: GENERAL: NAD. HEENT: NC, AT. NGT in place. LUNGS: CTAB. CARDIAC: RRR. Systolic murmur appreciated. GI: Bandages in place with some saturation. Soft. EXTREMITIES: No edema. NEURO: No gross deficits. PSYCH: Mood and affect appropriate. - Urinary Catheter Management Indwelling Urethral Catheter Cath placed during this visit: yes Reason for continuing: Hourly intake/output Insertion date: 02/19/18 Insertion time: 16:17 Results - Labs CBC & Chem 7: 02/19/18 12:40 02/19/18 12:40 Laboratory Results - last 24 hr 02/20/18 12:33 CBC w Diff Cancelled WBC Cancelled Corrected WBC Cancelled RBC Cancelled Hgb Cancelled Hct Cancelled MCV Cancelled MCH Cancelled MCHC Cancelled RDW Cancelled Plt Count Cancelled MPV Cancelled Prelim Diff (Auto) Cancelled Immature Gran % (Auto) Cancelled Neut % (Auto) Cancelled Lymph % (Auto) Cancelled [place] % (Auto) Cancelled Eos % (Auto) Cancelled Baso % (Auto) Cancelled Immature Gran # (Auto) Cancelled Neut # (Auto) Cancelled Lymph # (Auto) Cancelled [place] # (Auto) Cancelled Eos # (Auto) Cancelled Baso # (Auto) Cancelled WBC Differential Cancelled Diff Scan Cancelled Seg Neuts % (Manual) Cancelled Band Neuts % (Manual) Cancelled Lymphocytes % (Manual) Cancelled Atypical Lymphs % (Man) Cancelled Monocytes % (Manual) Cancelled Eosinophils % (Manual) Cancelled Basophils % (Manual) Cancelled Metamyelocytes % (Man) Cancelled Myelocytes % (Man) Cancelled Promyelocytes % (Man) Cancelled Blast Cells % (Manual) Cancelled Plasma Cell % (Manual) Cancelled Other Cells % Cancelled Abs Neuts (Manual) Cancelled Nucleated RBCs/100 WBC Cancelled Differential Comment Cancelled Hypersegmented Neuts Cancelled Smudge Cells Cancelled Toxic Granulation Cancelled Toxic Vacuolation Cancelled Dohle Bodies Cancelled Platelet Estimate Cancelled Platelet Morphology Cancelled RBC Morphology Cancelled Dimorphic RBCs Cancelled Polychromasia Cancelled Basophilic Stippling Cancelled Spherocytes Cancelled Pappenheimer Bodies Cancelled Sickle Cells Cancelled Target Cells Cancelled Tear Drop Cells Cancelled Ovalocytes Cancelled Stomatocytes Cancelled Helmet Cells Cancelled [place]an-[place] Bodies Cancelled [place] Cells Cancelled Acanthocytes (Spur) Cancelled Rouleaux Cancelled Keratocytes Cancelled Hematology Comments Cancelled Assessment and Plan - Plan Carcinoid tumor S/p resection by GS on 02/19. - pain control. - wound care and diet per surgery. Currently NPO. NGT might be removed today per surgery. - IS. - rehab efforts. HTN Blood pressure becomes quite elevated at times. - OK to resume PO meds per surgery. Adjust regimen as needed. - clonidine as needed. - pain control. CAD S/p CABG x 5. No chest pain or shortness of breath at this time. - resume cardiac regimen. Renal insufficiency Chronic problem. - follow BMP and avoid nephrotoxins. Hypokalemia On potassium as an outpt. - resume potassium as tolerating diet. - BMP pending. PPx: Per surgery
--- NOTE | 2018-02-21 21:47 | P.PNGS ---
Subjective Patient reports: no new complaints (incisional tenderness, wants ng out) Physical Exam Vital signs: Vital Signs 02/20/18 22:38 02/21/18 00:00 02/21/18 04:00 Temperature 97.9 F 98.0 F Pulse Rate 94 H 94 H Respiratory Rate 19 18 Blood Pressure 190/70 H 186/77 H 195/87 H Pulse Oximetry 93 L 94 L 02/21/18 08:00 02/21/18 09:00 02/21/18 12:00 Temperature 97.8 F 98.1 F Pulse Rate 81 77 69 Respiratory Rate 17 18 Blood Pressure 187/82 H 142/65 H Pulse Oximetry 93 L 93 L 02/21/18 14:00 02/21/18 16:00 02/21/18 19:45 Temperature 98.0 F 98.4 F Pulse Rate 77 81 Respiratory Rate 18 18 Blood Pressure 181/74 H 188/80 H Pulse Oximetry 94 L 94 L 93 L Intake & Output 02/21/18 02/21/18 02/22/18 06:59 18:59 06:59 Intake Total 1000 / 1000 Output Total 100 / 100 Balance 900 / 900 Weight 66.69 kg Intake: IV 1000 / 1000 NS Inj 1,000 ML @ 100 mls/hr IV 1000 / 1000 .CONT .Q10H DILIA Rx#:[id number] Output: Wound Drainage 100 / 100 # 1 Abdomen 100 / 100 Other: # Voids 2 Date of Last Bowel Movement 02/19/18 - Constitutional no acute distress - Routine Respiratory Exam Present: CTA bilaterally - Routine Cardiovascular Exam Present: RRR - Routine Abdominal Exam Present: soft (incision with andrew narayan serosang) - Urinary Catheter Management Indwelling Urethral Catheter Cath placed during this visit: yes Reason for continuing: Hourly intake/output Insertion date: 02/19/18 Insertion time: 16:17 Assessment and Plan - Plan POD 2 Dx lap, ex lap sb resection resection of carcinoid PLAN NG sxn, d/c ng tube narayan sxn ok for sips and ice chips-clears dvt ppx medicine hepas consult for htn and medical mgnt
[2018-02-22] MEDS: HYDROmorphone PF Inj 2 MG/ML Vial IV.PUSH PRN (01:04)
[2018-02-22] MEDS: Ketorolac Inj 30 MG/ML (IVP) Vial IV.PUSH SCH ×5 (01:11→18:32)
[2018-02-22] MEDS: Sod Chloride 0.9% Inj 1,000 ML IV.CONT SCH ×2 (01:12→12:50)
[2018-02-22 05:52] LABS: Baso # (Auto) 0.1 th/mm3 (0.0-0.2); Baso % (Auto) 1.1 % (0.0-2.0); Eos # (Auto) 0.4 th/mm3 (0.0-0.4); Eos % (Auto) 3.5 % (0.0-4.0); Hematocrit 41.7 % (35.0-46.0); Hemoglobin 13.4 gm/dL (11.6-15.3); Lymph # (Auto) 0.8 th/mm3 (1.0-4.8); Lymph % (Auto) 6.6 % (9.0-44.0); Mean Corpuscular HGB Conc 32.2 % (32.0-36.0); Mean Corpuscular Hemoglobin 27.5 pg (27.0-34.0); Mean Corpuscular Volume 85.5 fL (80.0-100.0); Mean Platelet Volume 9.3 fL (7.0-11.0); Mono # (Auto) 0.6 th/mm3 (0.0-0.9); Mono % (Auto) 5.3 % (0.0-8.0); Neut # (Auto) 9.5 th/mm3 (1.8-7.7); Neut % (Auto) 83.5 % (16.0-70.0); Platelet Count 215 th/mm3 (150-450); Red Blood Count 4.88 mil/mm3 (4.00-5.30); Red Cell Distribution Width 15.9 % (11.6-17.2); White Blood Count 11.4 th/mm3 (4.0-11.0)
[2018-02-22 06:20] LABS: Albumin 2.7 g/dL (3.4-5.0); Calcium 8.6 mg/dL (8.5-10.1); Carbon Dioxide 21.6 meq/L (21.0-32.0); Magnesium 2.3 mg/dL (1.5-2.5); Total Protein 6.1 g/dL (6.4-8.2)
[2018-02-22 06:25] LABS: Potassium 2.8 meq/L (3.5-5.1)
[2018-02-22] MEDS ORDERED: hydrALAZINE 25 MG Tablet PO SCH (09:00)
[2018-02-22] MEDS ORDERED: Potassium Chlor 20 mEq Premix 20 MEQ/100 ML PIGGYBACK IV.SIG SCH (09:00)
[2018-02-22] MEDS: Potassium Chlor 20 mEq Premix 20 MEQ/100 ML PIGGYBACK IV.SIG SCH ×2 (09:15→12:46)
[2018-02-22] MEDS: Enoxaparin Inj 30 MG/0.3 ML Syringe SQ SCH (09:16)
[2018-02-22] MEDS: Doxazosin 1 MG Tablet PO SCH (09:16)
[2018-02-22] MEDS: Carvedilol 12.5 MG Tablet PO SCH ×2 (09:16→22:41)
--- NOTE | 2018-02-22 11:48 | P.PNIM ---
Subjective Interval history: The patient was wondering if she could be advanced to a diet that included mashed potatoes. She said she felt nauseous earlier but she thinks she might of just been hungry. She has not been passing gas but she has been burping. She has no other acute complaints. She has been ambulating. Discussed with nursing. Physical Exam Vital signs: Vital Signs 02/21/18 12:00 02/21/18 14:00 02/21/18 16:00 Temperature 98.1 F 98.0 F Pulse Rate 69 77 Respiratory Rate 18 18 Blood Pressure 142/65 H 181/74 H Pulse Oximetry 93 L 94 L 94 L 02/21/18 19:45 02/21/18 20:00 02/21/18 23:46 Temperature 98.4 F 98.3 F Pulse Rate 81 75 75 Respiratory Rate 18 18 Blood Pressure 188/80 H 163/70 H Pulse Oximetry 93 L 95 02/22/18 04:39 02/22/18 08:00 Temperature 98.0 F 97.2 F L Pulse Rate 70 69 Respiratory Rate 18 18 Blood Pressure 185/89 H 165/74 H Pulse Oximetry 94 L 94 L Intake & Output 02/21/18 02/22/18 02/22/18 18:59 06:59 18:59 Intake Total 1000 / 1000 480 / 480 Output Total 100 / 100 Balance 900 / 900 480 / 480 Weight 70.8 kg Intake: IV 1000 / 1000 NS Inj 1,000 ML @ 100 mls/hr IV 1000 / 1000 .CONT .Q10H DILIA Rx#:[id number] Oral 480 / 480 Output: Wound Drainage 100 / 100 # 1 Abdomen 100 / 100 Other: # Voids 3 Date of Last Bowel Movement 02/19/18 # Bowel Movements 0 Narrative: GENERAL: NAD. HEENT: NC, AT. NGT in place. LUNGS: CTAB. CARDIAC: RRR. Systolic murmur appreciated. GI: Bandages in place with some saturation. Soft. EXTREMITIES: No edema. NEURO: No gross deficits. PSYCH: Mood and affect appropriate. - Urinary Catheter Management Indwelling Urethral Catheter Cath placed during this visit: yes Reason for continuing: Hourly intake/output Insertion date: 02/19/18 Insertion time: 16:17 Results - Labs CBC & Chem 7: 02/22/18 05:09 02/22/18 05:09 Laboratory Results - last 24 hr 02/22/18 02/22/18 05:09 05:09 WBC 11.4 H RBC 4.88 Hgb 13.4 Hct 41.7 MCV 85.5 MCH 27.5 MCHC 32.2 RDW 15.9 Plt Count 215 MPV 9.3 Neut % (Auto) 83.5 H Lymph % (Auto) 6.6 L [place] % (Auto) 5.3 Eos % (Auto) 3.5 Baso % (Auto) 1.1 Neut # (Auto) 9.5 H Lymph # (Auto) 0.8 L [place] # (Auto) 0.6 Eos # (Auto) 0.4 Baso # (Auto) 0.1 WBC Differential . Differential Comment Auto diff final Sodium 140 Potassium 2.8 L* Chloride 107 Carbon Dioxide 21.6 Anion Gap 11 BUN 19 H Creatinine 0.65 Estimated GFR 88 L Random Glucose 101 Calcium 8.6 Magnesium 2.3 Total Bilirubin 1.0 Direct Bilirubin 0.2 Indirect Bilirubin 0.8 AST 27 ALT 16 Alkaline Phosphatase 77 Total Protein 6.1 L Albumin 2.7 L Assessment and Plan - Plan Carcinoid tumor S/p resection by GS on 02/19. NGT removed. - pain control. - wound care and diet per surgery. Currently on clears. - IS. - rehab efforts. HTN Blood pressure becomes quite elevated at times. Somewhat improved. - continue Coreg, nifedipine and doxazosin. Adjust doses as needed. - clonidine as needed. - pain control. CAD S/p CABG x 5. No chest pain or shortness of breath at this time. - resume cardiac regimen. Renal insufficiency Chronic problem. - follow BMP and avoid nephrotoxins. Improved. Severe hypokalemia On potassium as an outpt. - resume potassium as tolerating diet. - IV KCl x 2. - BMP this afternoon and in AM. PPx: Per surgery
--- NOTE | 2018-02-22 12:22 | P.PNGS ---
Subjective Patient reports: feels better (no fevers, mild nausea) Physical Exam Vital signs: Vital Signs 02/21/18 14:00 02/21/18 16:00 02/21/18 19:45 Temperature 98.0 F 98.4 F Pulse Rate 77 81 Respiratory Rate 18 18 Blood Pressure 181/74 H 188/80 H Pulse Oximetry 94 L 94 L 93 L 02/21/18 20:00 02/21/18 23:46 02/22/18 04:39 Temperature 98.3 F 98.0 F Pulse Rate 75 75 70 Respiratory Rate 18 18 Blood Pressure 163/70 H 185/89 H Pulse Oximetry 95 94 L 02/22/18 08:00 Temperature 97.2 F L Pulse Rate 69 Respiratory Rate 18 Blood Pressure 165/74 H Pulse Oximetry 94 L Intake & Output 02/21/18 02/22/18 02/22/18 18:59 06:59 18:59 Intake Total 1000 / 1000 480 / 480 Output Total 100 / 100 Balance 900 / 900 480 / 480 Weight 70.8 kg Intake: IV 1000 / 1000 NS Inj 1,000 ML @ 100 mls/hr IV 1000 / 1000 .CONT .Q10H DILIA Rx#:[id number] Oral 480 / 480 Output: Wound Drainage 100 / 100 # 1 Abdomen 100 / 100 Other: # Voids 3 Date of Last Bowel Movement 02/19/18 # Bowel Movements 0 - Routine Respiratory Exam Present: CTA bilaterally - Routine Abdominal Exam Present: soft (andrew with good seal scant dry drainage ) - Urinary Catheter Management Indwelling Urethral Catheter Cath placed during this visit: yes Reason for continuing: Hourly intake/output Insertion date: 02/19/18 Insertion time: 16:17 Assessment and Plan - Plan POD 3 Dx lap, ex lap sb resection resection of carcinoid PLAN keep clears until bowel fxn narayan sxn- will d/c today dvt ppx medicine hepas consult for htn and medical mgnt await path results
[2018-02-22] MEDS: Senna/Docusate Sodium 8.6/50 MG Tablet PO SCH ×2 (12:50→22:43)
[2018-02-22 15:17] LABS: Anion Gap 8 meq/L (5-15); Blood Urea Nitrogen 16 mg/dL (7-18); Calcium 8.2 mg/dL (8.5-10.1); Carbon Dioxide 22.2 meq/L (21.0-32.0); Chloride 110 meq/L (98-107); Glomerular Filtration Rate Greater Than 89 mL/min (>89); Glucose,Random 93 mg/dL (74-106); Sodium 140 meq/L (136-145)
[2018-02-22 15:19] LABS: Potassium 4.2 meq/L (3.5-5.1)
[2018-02-23] MEDS: Ketorolac Inj 30 MG/ML (IVP) Vial IV.PUSH SCH ×4 (01:32→18:16)
[2018-02-23 08:30] LABS: Anion Gap 12 meq/L (5-15); Blood Urea Nitrogen 14 mg/dL (7-18); Calcium 8.2 mg/dL (8.5-10.1); Carbon Dioxide 21.8 meq/L (21.0-32.0); Chloride 110 meq/L (98-107); Glomerular Filtration Rate Greater Than 89 mL/min (>89); Glucose,Random 88 mg/dL (74-106); Potassium 3.2 meq/L (3.5-5.1); Sodium 144 meq/L (136-145)
[2018-02-23] MEDS: Senna/Docusate Sodium 8.6/50 MG Tablet PO SCH ×2 (10:06→20:36)
[2018-02-23] MEDS: Doxazosin 1 MG Tablet PO SCH (10:06)
[2018-02-23] MEDS: Carvedilol 12.5 MG Tablet PO SCH ×2 (10:06→20:36)
[2018-02-23] MEDS: Enoxaparin Inj 30 MG/0.3 ML Syringe SQ SCH (10:07)
--- NOTE | 2018-02-23 10:37 | P.PN ---
Subjective Interval history: Patient had a BM yesterday Wants more to eat Physical Exam Vital signs: Vital Signs 02/22/18 12:00 02/22/18 16:00 02/22/18 19:00 Temperature 97.6 F 97.5 F L 98.2 F Pulse Rate 74 75 65 Respiratory Rate 18 18 18 Blood Pressure 163/72 H 158/74 H 128/60 Pulse Oximetry 93 L 94 L 98 02/22/18 20:00 02/22/18 23:42 02/23/18 04:05 Temperature 98.4 F 97.8 F Pulse Rate 65 60 77 Respiratory Rate 18 18 Blood Pressure 137/62 141/65 H Pulse Oximetry 97 96 02/23/18 08:00 Temperature 97.3 F L Pulse Rate 70 Respiratory Rate 19 Blood Pressure 149/67 H Pulse Oximetry 95 Intake & Output 02/22/18 02/23/18 02/23/18 18:59 06:59 18:59 Intake Total 100 / 100 480 / 480 Balance 100 / 100 480 / 480 Weight 70.8 kg Intake: IV 100 / 100 KCl 20 mEq Premix Inj 20 meq In 100 / 100 100 ml @ 50 mls/hr IV.SIG Q2H DILIA Rx#:[id number] Oral 480 / 480 Other: # Voids 4 5 Date of Last Bowel Movement 02/19/18 02/22/18 # Bowel Movements 0 - Routine Respiratory Exam Present: CTA bilaterally - Routine Cardiovascular Exam Present: RRR - Routine Abdominal Exam Present: soft, normoactive bowel sounds, wound (DINH dressing intact with old drainage) - Urinary Catheter Management Indwelling Urethral Catheter Cath placed during this visit: yes Reason for continuing: Hourly intake/output Insertion date: 02/19/18 Insertion time: 16:17 Results - Labs CBC & Chem 7: 02/22/18 05:09 02/23/18 06:36 Laboratory Results - last 24 hr 02/22/18 02/23/18 14:45 06:36 Sodium 140 144 Potassium 4.2 D 3.2 L D Chloride 110 H 110 H Carbon Dioxide 22.2 21.8 Anion Gap 8 12 BUN 16 14 Creatinine 0.59 0.53 Estimated GFR Greater than 89 Greater than 89 Random Glucose 93 88 Calcium 8.2 L 8.2 L Magnesium 2.0 Assessment and Plan - Assessment (1) 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 Code(s): D3A.019 - Benign carcinoid tumor of the small intestine, unspecified portion Status: Acute - Plan POD #4 exp lap/excision carcinoid tumor Advance diet Encouraged to take oral pain meds
--- NOTE | 2018-02-23 12:13 | P.PNIM ---
Subjective Interval history: 02-22 The patient was wondering if she could be advanced to a diet that included mashed potatoes. She said she felt nauseous earlier but she thinks she might of just been hungry. She has not been passing gas but she has been burping. She has no other acute complaints. She has been ambulating. Discussed with nursing. 02-23 will defer diet to surgery does not like taking pain medications DW RN AND PT AND CM AM LABS PT AND OT REPLACE POTASSIUM AMBULATE Physical Exam Vital signs: Vital Signs 02/22/18 16:00 02/22/18 19:00 02/22/18 20:00 Temperature 97.5 F L 98.2 F Pulse Rate 75 65 65 Respiratory Rate 18 18 Blood Pressure 158/74 H 128/60 Pulse Oximetry 94 L 98 02/22/18 23:42 02/23/18 04:05 02/23/18 08:00 Temperature 98.4 F 97.8 F 97.3 F L Pulse Rate 60 77 70 Respiratory Rate 18 18 19 Blood Pressure 137/62 141/65 H 149/67 H Pulse Oximetry 97 96 95 Intake & Output 02/22/18 02/23/18 02/23/18 18:59 06:59 18:59 Intake Total 100 / 100 480 / 480 Balance 100 / 100 480 / 480 Weight 70.8 kg Intake: IV 100 / 100 KCl 20 mEq Premix Inj 20 meq In 100 / 100 100 ml @ 50 mls/hr IV.SIG Q2H DILIA Rx#:[id number] Oral 480 / 480 Other: # Voids 4 5 Date of Last Bowel Movement 02/19/18 02/22/18 # Bowel Movements 0 Narrative: GENERAL: NAD. HEENT: NC, AT. HEENT oral mucosa is moist tongue is midline no JVD no thyromegaly neck is supple LUNGS: CTAB. CARDIAC: RRR. Systolic murmur appreciated. S1 S2 no S3 or S4 GI: Bandages in place with some saturation. Soft. EXTREMITIES: No edema. NEURO: No gross deficits. PSYCH: Mood and affect appropriate. Insight and judgment is good - Urinary Catheter Management Indwelling Urethral Catheter Cath placed during this visit: yes Reason for continuing: Hourly intake/output Insertion date: 02/19/18 Insertion time: 16:17 Results - Labs CBC & Chem 7: 02/22/18 05:09 02/23/18 06:36 Laboratory Results - last 24 hr 02/22/18 02/23/18 14:45 06:36 Sodium 140 144 Potassium 4.2 D 3.2 L D Chloride 110 H 110 H Carbon Dioxide 22.2 21.8 Anion Gap 8 12 BUN 16 14 Creatinine 0.59 0.53 Estimated GFR Greater than 89 Greater than 89 Random Glucose 93 88 Calcium 8.2 L 8.2 L Magnesium 2.0 Assessment and Plan - Plan Carcinoid tumor S/p resection by GS on 02/19. NGT removed. - pain control. - wound care and diet per surgery. - IS. - rehab efforts. HTN Blood pressure becomes quite elevated at times. Somewhat improved. - continue Coreg, nifedipine and doxazosin. Adjust doses as needed. - clonidine as needed. - pain control. CAD S/p CABG x 5. No chest pain or shortness of breath at this time. - resume cardiac regimen. Renal insufficiency Chronic problem. - follow BMP and avoid nephrotoxins. Improved. Severe hypokalemia On potassium as an outpt. - resume potassium as tolerating diet. - IV KCl x 2. - BMP this afternoon and in AM. WILL REPLACE AGAIN AM LABS PPx: Per surgery Code Status: FULL CODE Discussed Condition With: RN AND PT AND CM Discharge Planning: PENDING TOLERATING A DIET AND HAVING BMS
[2018-02-23] MEDS ORDERED: Potassium Bicarbonate 25 MEQ Effervescent Tablet PO ONE (12:54)
[2018-02-24] MEDS: Ketorolac Inj 30 MG/ML (IVP) Vial IV.PUSH SCH ×3 (00:19→15:11)
[2018-02-24 08:24] LABS: Baso # (Auto) 0.2 th/mm3 (0.0-0.2); Baso % (Auto) 2.1 % (0.0-2.0); Eos # (Auto) 0.6 th/mm3 (0.0-0.4); Eos % (Auto) 7.6 % (0.0-4.0); Hemoglobin 14.1 gm/dL (11.6-15.3); Lymph # (Auto) 0.8 th/mm3 (1.0-4.8); Lymph % (Auto) 10.8 % (9.0-44.0); Mean Corpuscular HGB Conc 33.5 % (32.0-36.0); Mean Corpuscular Hemoglobin 28.3 pg (27.0-34.0); Mean Corpuscular Volume 84.6 fL (80.0-100.0); Mean Platelet Volume 9.3 fL (7.0-11.0); Mono # (Auto) 0.5 th/mm3 (0.0-0.9); Mono % (Auto) 6.9 % (0.0-8.0); Neut # (Auto) 5.5 th/mm3 (1.8-7.7); Neut % (Auto) 72.6 % (16.0-70.0); Platelet Count 239 th/mm3 (150-450); Red Blood Count 4.97 mil/mm3 (4.00-5.30); Red Cell Distribution Width 15.7 % (11.6-17.2); White Blood Count 7.6 th/mm3 (4.0-11.0)
[2018-02-24 08:47] LABS: Albumin 2.7 g/dL (3.4-5.0); Anion Gap 10 meq/L (5-15); Aspartate Aminotransferase 13 U/L (15-37); Blood Urea Nitrogen 9 mg/dL (7-18); Calcium 8.5 mg/dL (8.5-10.1); Carbon Dioxide 24.2 meq/L (21.0-32.0); Chloride 108 meq/L (98-107); Glomerular Filtration Rate Greater Than 89 mL/min (>89); Glucose,Random 82 mg/dL (74-106); Magnesium 1.9 mg/dL (1.5-2.5); Potassium 3.3 meq/L (3.5-5.1); Sodium 142 meq/L (136-145)
[2018-02-24 08:48] LABS: Alanine Aminotransferase 14 U/L (10-53); Phosphorus 1.9 mg/dL (2.5-4.9)
[2018-02-24] MEDS: Carvedilol 12.5 MG Tablet PO SCH ×2 (08:51→21:23)
[2018-02-24] MEDS: Potassium Bicarbonate 25 MEQ Effervescent Tablet PO SCH (08:51)
[2018-02-24] MEDS: Enoxaparin Inj 30 MG/0.3 ML Syringe SQ SCH (08:51)
[2018-02-24] MEDS: Doxazosin 1 MG Tablet PO SCH (08:51)
[2018-02-24] MEDS: Senna/Docusate Sodium 8.6/50 MG Tablet PO SCH ×2 (08:52→21:24)
[2018-02-24 08:57] LABS: Alkaline Phosphatase 70 U/L (45-117); Total Protein 5.8 g/dL (6.4-8.2)
--- NOTE | 2018-02-24 09:59 | P.PNGS ---
Subjective Patient reports: feels better, flatus (+bm, pain controlled) Physical Exam Vital signs: Vital Signs 02/23/18 12:00 02/23/18 16:00 02/23/18 20:00 Temperature 98.7 F 97.6 F 98.3 F Pulse Rate 65 72 66 Respiratory Rate 19 19 18 Blood Pressure 136/62 158/67 H 139/73 Pulse Oximetry 96 97 96 02/23/18 23:42 02/24/18 00:00 02/24/18 04:00 Temperature 98.3 F 97.4 F L Pulse Rate 64 63 72 Respiratory Rate 16 18 Blood Pressure 166/69 H 191/95 H Pulse Oximetry 97 96 02/24/18 05:59 02/24/18 08:00 02/24/18 08:58 Temperature 97.7 F 97.7 F Pulse Rate 71 68 69 Respiratory Rate 20 20 Blood Pressure 171/111 H 159/77 H 156/77 H Pulse Oximetry 95 95 Intake & Output 02/23/18 02/24/18 02/24/18 18:59 06:59 18:59 Intake Total 960 / 960 480 / 480 Balance 960 / 960 480 / 480 Weight 68.5 kg Intake: Oral 960 / 960 480 / 480 Other: # Voids 3 6 Date of Last Bowel Movement 02/22/18 02/23/18 02/24/18 - Constitutional no acute distress - Routine Respiratory Exam Present: CTA bilaterally - Routine Cardiovascular Exam Present: RRR - Routine Abdominal Exam Present: soft (andrew c/d/i good sxn) - Urinary Catheter Management Indwelling Urethral Catheter Cath placed during this visit: yes Reason for continuing: Hourly intake/output Insertion date: 02/19/18 Insertion time: 16:17 Assessment and Plan - Assessment (1) 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 Code(s): D3A.019 - Benign carcinoid tumor of the small intestine, unspecified portion Status: Acute - Plan s/p Dx lap, ex lap sb resection resection of carcinoid PLAN reg diet dvt ppx medicine hepas consult for htn and medical mgnt anticipate d/c tomorrow am
[2018-02-24 11:28] LABS: Hemoglobin A1c 5.2 % (4.3-6.0)
--- NOTE | 2018-02-24 12:02 | P.PNIM ---
Subjective Interval history: 02-22 The patient was wondering if she could be advanced to a diet that included mashed potatoes. She said she felt nauseous earlier but she thinks she might of just been hungry. She has not been passing gas but she has been burping. She has no other acute complaints. She has been ambulating. Discussed with nursing. 02-23 will defer diet to surgery does not like taking pain medications DW RN AND PT AND CM AM LABS PT AND OT REPLACE POTASSIUM AMBULATE 02-24 had bms DIET BEING ADVANCED BY SURGERY WANTS TO GO HOME TOMORROW DW RN AND PT AND CM AM LABS Physical Exam Vital signs: Vital Signs 02/23/18 16:00 02/23/18 20:00 02/23/18 23:42 Temperature 97.6 F 98.3 F Pulse Rate 72 66 64 Respiratory Rate 19 18 Blood Pressure 158/67 H 139/73 Pulse Oximetry 97 96 02/24/18 00:00 02/24/18 04:00 02/24/18 05:59 Temperature 98.3 F 97.4 F L Pulse Rate 63 72 71 Respiratory Rate 16 18 Blood Pressure 166/69 H 191/95 H 171/111 H Pulse Oximetry 97 96 02/24/18 08:00 02/24/18 08:58 Temperature 97.7 F 97.7 F Pulse Rate 68 69 Respiratory Rate 20 20 Blood Pressure 159/77 H 156/77 H Pulse Oximetry 95 95 Intake & Output 02/23/18 02/24/18 02/24/18 18:59 06:59 18:59 Intake Total 960 / 960 480 / 480 Output Total 400 / 400 Balance 960 / 960 480 / 480 -400 / -400 Weight 68.5 kg Intake: Oral 960 / 960 480 / 480 Output: Urine 400 / 400 Other: # Voids 3 6 Date of Last Bowel Movement 02/22/18 02/23/18 02/24/18 Narrative: GENERAL: NAD. HEENT: NC, AT. HEENT oral mucosa is moist tongue is midline no JVD no thyromegaly neck is supple LUNGS: CTAB. CARDIAC: RRR. Systolic murmur appreciated. S1 S2 no S3 or S4 GI: Bandages in place with some saturation. Soft. EXTREMITIES: No edema. NEURO: No gross deficits. PSYCH: Mood and affect appropriate. Insight and judgment is good - Urinary Catheter Management Indwelling Urethral Catheter Cath placed during this visit: yes Reason for continuing: Hourly intake/output Insertion date: 02/19/18 Insertion time: 16:17 Results - Labs CBC & Chem 7: 02/24/18 06:45 02/24/18 06:45 Laboratory Results - last 24 hr 02/24/18 02/24/18 06:45 06:45 WBC 7.6 RBC 4.97 Hgb 14.1 Hct 42.0 MCV 84.6 MCH 28.3 MCHC 33.5 RDW 15.7 Plt Count 239 MPV 9.3 Neut % (Auto) 72.6 H Lymph % (Auto) 10.8 [place] % (Auto) 6.9 Eos % (Auto) 7.6 H Baso % (Auto) 2.1 H Neut # (Auto) 5.5 Lymph # (Auto) 0.8 L [place] # (Auto) 0.5 Eos # (Auto) 0.6 H Baso # (Auto) 0.2 WBC Differential . 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 NGT removed. - pain control. - wound care and diet per surgery. - IS. - rehab efforts. HTN Blood pressure becomes quite elevated at times. Somewhat improved. - continue Coreg, nifedipine and doxazosin. Adjust doses as needed. - clonidine as needed. - pain control. CAD S/p CABG x 5. No chest pain or shortness of breath at this time. - resume cardiac regimen. Renal insufficiency Chronic problem. - follow BMP and avoid nephrotoxins. Improved. Severe hypokalemia On potassium as an outpt. - resume potassium as tolerating diet. - IV KCl x 2. - BMP this afternoon and in AM. WILL REPLACE AGAIN-- WILL REPLACE ONE MORE TIME AM LABS PPx: Per surgery Code Status: FULL CODE Discussed Condition With: RN AND PT AND CM Discharge Planning: ONCE CLEARED BY SURGERY
[2018-02-25 05:47] LABS: Baso # (Auto) 0.1 th/mm3 (0.0-0.2); Baso % (Auto) 1.3 % (0.0-2.0); Eos # (Auto) 0.6 th/mm3 (0.0-0.4); Eos % (Auto) 6.2 % (0.0-4.0); Hematocrit 43.5 % (35.0-46.0); Hemoglobin 14.3 gm/dL (11.6-15.3); Lymph # (Auto) 1.2 th/mm3 (1.0-4.8); Lymph % (Auto) 12.6 % (9.0-44.0); Mean Corpuscular HGB Conc 32.8 % (32.0-36.0); Mean Corpuscular Hemoglobin 27.7 pg (27.0-34.0); Mean Corpuscular Volume 84.4 fL (80.0-100.0); Mean Platelet Volume 9.3 fL (7.0-11.0); Mono # (Auto) 0.6 th/mm3 (0.0-0.9); Mono % (Auto) 6.3 % (0.0-8.0); Neut # (Auto) 7.1 th/mm3 (1.8-7.7); Neut % (Auto) 73.6 % (16.0-70.0); Platelet Count 244 th/mm3 (150-450); Red Blood Count 5.15 mil/mm3 (4.00-5.30); Red Cell Distribution Width 15.7 % (11.6-17.2); White Blood Count 9.6 th/mm3 (4.0-11.0)
[2018-02-25 06:10] LABS: Albumin 2.8 g/dL (3.4-5.0); Anion Gap 10 meq/L (5-15); Aspartate Aminotransferase 14 U/L (15-37); Blood Urea Nitrogen 11 mg/dL (7-18); Calcium 9.1 mg/dL (8.5-10.1); Carbon Dioxide 24.3 meq/L (21.0-32.0); Chloride 108 meq/L (98-107); Glomerular Filtration Rate 82 mL/min (>89); Glucose,Random 93 mg/dL (74-106); Potassium 3.5 meq/L (3.5-5.1); Sodium 142 meq/L (136-145)
[2018-02-25 06:15] LABS: Alanine Aminotransferase 15 U/L (10-53); Alkaline Phosphatase 80 U/L (45-117); Phosphorus 3.1 mg/dL (2.5-4.9); Total Protein 6.3 g/dL (6.4-8.2)
--- NOTE | 2018-02-25 08:04 | P.DCO ---
- Physical Therapy Order: Evaluate and treat, Improve ambulation, Strength and gait training Instructions: No restrictions - Home Health Nursing Order: Nursing assessment with vital signs Instructions: okay to leave incision open to air; please monitor BP - Certification I have seen patient Luana Myers on 02/25/18. My clinical findings support the need for the requested home health care services because: Limited mobility due to disease progression, Deconditioned with increased weakness I certify that my clinical findings support that this patient is homebound because: Post-op weakness
[2018-02-25] MEDS: Doxazosin 1 MG Tablet PO SCH (08:19)
[2018-02-25] MEDS: Potassium Bicarbonate 25 MEQ Effervescent Tablet PO SCH (08:20)
[2018-02-25] MEDS: Carvedilol 12.5 MG Tablet PO SCH (08:20)
[2018-02-25] MEDS: Senna/Docusate Sodium 8.6/50 MG Tablet PO SCH (08:20)
[2018-02-25] MEDS: Enoxaparin Inj 30 MG/0.3 ML Syringe SQ SCH (08:20)
--- NOTE | 2018-02-26 14:59 | P.DS ---
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 - Time Spent with Patient Total time spent providing and/or coordinating discharge services: Exam Vital signs: Intake & Output 02/25/18 02/26/18 02/26/18 18:59 06:59 18:59 Other: Date of Last Bowel Movement 02/24/18 Narrative: Alert and awake ambulating in the room Cardio: RRR Resp: CTAB Abd: incision c/d/i; mild post op tenderness Results Procedures completed during hospitalization: s/p Dx lap, ex lap sb resection resection of carcinoid Completed studies during hospitalization: Pending at discharge 02/19/18 07:55 Surgical [PTH] Routine Discharge Plan - Discharge Disposition Patient Disposition: 01 Discharge Home - Discharge Condition Condition: Good - Discharge Order Discharge Orders: Discharge Order (Routine); Ordered 02/25/18 Ordered By: Tamiko Pickett - Discharge Details Anticipated Discharge Date: 02/25/18 Discharge Comment: rx on chart - Physicians Team Attending Provider: Kj Benton Other Providers: ; Surgeons,[facility] ; Hardeep Mar DO - Rxs /Orders / Referrals /Forms Prescriptions: No Action aspirin [Aspir-81] 81 mg Tablet,Delayed Release (Dr/Ec) 81 mg PO DAILY bumetanide 1 mg Tablet 1 mg PO DAILY carvedilol 12.5 mg Tablet 12.5 mg PO BID cholecalciferol (vitamin D3) [Vitamin D3] 5,000 unit Tablet 5,000 unit PO DAILY coQ10 (ubiquinol) 100 mg Capsule 100 mg PO DAILY doxazosin 2 mg Tablet 2 mg PO DAILY magnesium 250 mg Tablet 500 mg PO DAILY nifedipine 60 mg Tablet Extended Release 60 mg PO 0500 omega 5-auo-njy-fish oil [Fish Oil] 1,000 mg (120 mg-180 mg) Capsule 1 cap PO DAILY potassium 99 mg Tablet 40 meq PO DAILY Ambulatory Orders / Order Sets / DME: Walker With Front Wheels (1 each) (Routine) Timeframe: 99 Months Location: Determined by Patient Ordered By: Hardeep Mar Referrals: Ms Meaghan Mittal MD [Other] - See Instructions ( Please call the physician 's office to book the appointment to be seen.) Kj Benton MD [Physician] - See Instructions (f/u appt set for SundayMarch 01 at 9AM ok to shower, no bath tub no heavy lifting ) - Discharge Instructions Additional Instructions: PLEASE CALL YOUR DOCTOR IF YOU HAVE WORSENING PAIN OR IF YOU HAVE ANY UNRELIEVED FEVERS. - Post Discharge Care Plan Care Plan Goals: Your Health Problems: Goals to Promote Your Health: * To prevent worsening of your condition * To maintain your health at the optimal level Directions to Meet Your Goals: * Take your medications as prescribed * Follow your dietary instruction * Follow activity as directed * Keep your appointments as scheduled * Take your immunizations and boosters as scheduled * If your symptoms worsen call your PCP * If no PCP go to Urgent Care or Emergency Room Smoking is dangerous to your health. Avoid second hand smoke. You may reach the 24-hour crisis hotline for domestic abuse at .
== END 2018-02-25 10:16 | disposition home or self-care (01) ==
LOC: HSDC 11:51 → HSDI 18:53 → N06 20:54
PROVIDERS: ADMIT Surgery; ATTEND Surgery
PROC: LAPSCPY (ICD-10-PCS; 2018-02-19 16:06)

== ENCOUNTER 2018-02-27 13:06 | Inpatient (IN) ==
[2018-02-27] MEDS ORDERED: Acetaminophen 325 MG Tablet PO PRN (18:39)
[2018-02-27] MEDS ORDERED: Bisacodyl 10 MG Supp RECTAL PRN (18:39)
[2018-02-27] MEDS ORDERED: Naloxone Inj 0.4 MG/ML Vial IV.PUSH PRN (18:45)
[2018-02-27] MEDS ORDERED: oxyCODONE/Acetaminophen 10/325 Tablet PO PRN (18:45)
[2018-02-27] MEDS ORDERED: Morphine Inj 4 MG/ML Vial IV.PUSH PRN ×3 (18:45)
[2018-02-27] MEDS: Carvedilol 12.5 MG Tablet PO SCH (22:03)
[2018-02-27] MEDS: Senna/Docusate Sodium 8.6/50 MG Tablet PO SCH (22:03)
--- NOTE | 2018-02-27 23:24 | P.HPIM ---
History of Present Illness Primary Care Physician: UNKNOWN History of Present Illness: 77 y/o female with a history of a resection of a carcinoid tumor on February [address] Benton, hld, arthritis and pvd presented to the ed with complaints of nausea , vomiting,generalized malaise and headache that started today. She states she does have home health since being discharged and they advised her to come to the emergency department. She states she has had reduced p.o. intake due to nausea and once she arrived to the ED she did vomit a few times. She is also complaining of sub sternal constant chest pressure with no radiation or associated symptoms. She denies any fever or chills. Inpatient Certification: I certify that the inpatient services were ordered in accordance with Medicare regulations governing the order. This includes certification that hospital inpatient services are reasonable and necessary and in the case of services not specified as inpatient-only under 42 CFR 419.22(n), that they are appropriately provided as inpatient services in accordance to with the 2-midnight benchmark under 43 CFR 412.3(e) Estimated Total Length of Stay (Days): 5 Plans for Post Hospital Care: Not yet determined Review of Systems All other systems reviewed negative except as stated in HPI PMFSH - History History Provided By: Patient - Medical History Medical History: Medical History (Last Reviewed 02/27/18 @ 15:32 by Eliot Ritchie DO) Arthritis 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 High cholesterol History of anesthesia reaction Hypertension Jaw fracture PVD (peripheral vascular disease) Pacemaker Renal insufficiency TIA (transient ischemic attack) - Surgical History Surgical History: Surgical History (Last Updated 02/28/18 @ 01:23 by TATE Mathews) Cataract (lens) fragments in eye following cataract surgery, bilateral History of hysterectomy History of tonsillectomy Right arm fracture S/P CABG x 5 - Tobacco History Second Hand Smoke Exposure: No Smoking Status: Never smoker - Alcohol History How Often Do You Have a Drink Containing Alcohol: Monthly or less - Substance Use History Substance History: No History of Abuse Medications and Allergies Allergies Allergy/AdvReac Type Severity Reaction Status Date / Time amlodipine Allergy Severe Anaphylaxis Verified 02/19/18 12:40 lisinopril Allergy Severe Anaphylaxis Verified 02/19/18 12:40 Xklioqo-Olp-Xrd Reductase Allergy Severe Cough Verified 02/19/18 12:40 Inhibitor Home Medications Medication Instructions Recorded Confirmed Type aspirin [Aspir-81] 81 mg PO DAILY 02/15/18 02/27/18 History bumetanide 1 mg PO DAILY 02/15/18 02/27/18 History carvedilol 12.5 mg PO BID 02/15/18 02/27/18 History cholecalciferol (vitamin D3) 5,000 unit PO DAILY 02/15/18 02/27/18 History [Vitamin D3] coQ10 (ubiquinol) 100 mg PO DAILY 02/15/18 02/27/18 History doxazosin 2 mg PO DAILY 02/15/18 02/27/18 History magnesium 500 mg PO DAILY 02/15/18 02/27/18 History nifedipine 60 mg PO 0500 02/15/18 02/27/18 History omega 5-gnm-zcr-fish oil [Fish Oil] 1 cap PO DAILY 02/15/18 02/27/18 History potassium 40 meq PO DAILY 02/15/18 02/27/18 History Active Medications: Active Medications Acetaminophen (Tylenol) 650 mg PO Q4H PRN PRN Reason: Temp > 100.4 Al Hydroxide/Mg Hydroxide (Milk Of Magnesia Liq) 30 ml PO Q12H PRN PRN Reason: Mild Constipation Bisacodyl (Dulcolax Supp) 10 mg RECTAL DAILY PRN PRN Reason: SEVERE CONSITIPATION Carvedilol (Coreg) 12.5 mg PO BID [facility] Last Admin: 02/27/18 22:03 Dose: Not Given Heparin Sodium (Porcine) (Heparin Inj) 5,000 units SQ Q12H [facility] Potassium Chloride/Dextrose/Sod Cl (D5w/1/2ns + Kcl 20 Meq Inj) 1,000 mls @ 100 mls/hr IV.CONT .Q10H [facility] Lactulose (Lactulose Liq) 30 ml PO DAILY PRN PRN Reason: SEVERE CONSITIPATION Morphine Sulfate (Morphine Inj) 2 mg IV.PUSH Q3H PRN PRN Reason: PAIN 3-5; IF UABLE TO TAKE PO Morphine Sulfate (Morphine Inj) 4 mg IV.PUSH Q3H PRN PRN Reason: PAIN 6-10;IF UNABLE TO TAKE PO Morphine Sulfate (Morphine Inj) 4 mg IV.PUSH Q3H PRN PRN Reason: BREAKTHROUGH PAIN Naloxone HCl (Narcan Inj) 0.4 mg IV.PUSH UNSCH PRN PRN Reason: SEE LABEL COMMENTS Nifedipine (Procardia Xl) 60 mg PO DAILY@0500 [facility] Ondansetron HCl (Zofran Odt) 4 mg PO Q6H PRN PRN Reason: NAUSEA OR VOMITING Oxycodone/Acetaminophen (Percocet 10/325 Mg) 1 tab PO Q6H PRN PRN Reason: PAIN SCALE 6 TO 10 Oxycodone/Acetaminophen (Percocet 5/325 Mg) 1 tab PO Q6H PRN PRN Reason: PAIN SCALE 3 TO 5 Pantoprazole Sodium (Protonix Inj) 40 mg IV.PUSH Q12H [facility] Senna/Docusate Sodium (Dominga-Colace) 1 tab PO BID [facility] Last Admin: 02/27/18 22:03 Dose: Not Given Sennosides (Senokot) 17.2 mg PO Q12H PRN PRN Reason: Moderate Constipation Exam Vital signs: Vital Signs 02/27/18 20:00 Temperature 96.1 F L Pulse Rate 76 Respiratory Rate 18 Blood Pressure 168/74 H Pulse Oximetry 98 Narrative: GENERAL: This is a well-nourished, well-developed patient, in no apparent distress. CARDIOVASCULAR: Regular rate and rhythm without murmurs, gallops, or rubs. RESPIRATORY: Clear to auscultation. Breath sounds equal bilaterally. No wheezes , rales, or rhonchi. GASTROINTESTINAL: Abdomen soft, tender, nondistended. hypo active bowel sounds NGT to LIWS MUSCULOSKELETAL: Extremities without clubbing, cyanosis, or edema. NEURO: Alert & Oriented x4 to person, place, time, situation. Moves all ext x4 Results - Labs CBC & Chem 7: 02/28/18 02:31 02/28/18 02:31 Caprini VTE Risk Assessment Caprini VTE Risk Assessment: No/Low Risk (score <= 1) Caprini Risk Assessment Model: Point Value = 1 Point Value = 2 Point Value = 3 Point Value = 5 Age 41-60 Minor surgery BMI > 25 kg/m2 Swollen legs Varicose veins or History of unexplained or recurrent spontaneous Oral contraceptives or hormone replacement Sepsis (< 1 month) Serious lung disease, including pneumonia (< 1 month) Abnormal pulmonary function Acute myocardial infarction Congestive heart failure (< 1 month) History of inflammatory bowel disease Medical patient at bed rest Age 61-74 Arthroscopic surgery Major open surgery (> 45 min) Laparoscopic surgery (> 45 min) Malignancy Confined to bed (> 72 hours) Immobilizing plaster cast Central venous access Age >= 75 History of VTE Family history of VTE Factor V Leiden Prothrombin [id number] Lupus anticoagulant Anticardiolipin antibodies Elevated serum homocysteine Heparin-induced thrombocytopenia Other congenital or acquired thrombophilia Stroke (< 1 month) Elective arthroplasty Hip, pelvis, or leg fracture Acute spinal cord injury (< 1 month) Prophylaxis Regimen: Total Risk Factor Score Risk Level Prophylaxis Regimen 0-1 Low Early ambulation 2 Moderate Order ONE of the following: *Sequential Compression Device (SCD) *Heparin 5000 units SQ BID 3-4 Higher Order ONE of the following medications: *Heparin 5000 units SQ TID *Enoxaparin/Lovenox 40 mg SQ daily (WT < 150 kg, CrCl > 30 mL/min) *Enoxaparin/Lovenox 30 mg SQ daily (WT < 150 kg, CrCl > 10-29 mL/min) *Enoxaparin/Lovenox 30 mg SQ BID (WT < 150 kg, CrCl > 30 mL/min) AND/OR *Sequential Compression Device (SCD) 5 or more Highest Order ONE of the following medications: *Heparin 5000 units SQ TID (Preferred with Epidurals) *Enoxaparin/Lovenox 40 mg SQ daily (WT < 150 kg, CrCl > 30 mL/min) *Enoxaparin/Lovenox 30 mg SQ daily (WT < 150 kg, CrCl > 10-29 mL/min) *Enoxaparin/Lovenox 30 mg SQ BID (WT < 150 kg, CrCl > 30 mL/min) AND *Sequential Compression Device (SCD) Assessment and Plan - Plan 77 y/o female with a history of a resection of a carcinoid tumor on February [address] Benton, hld, arthritis and pvd presented to the ed with complaints of nausea , vomiting,generalized malaise and headache that started today. She states she does have home health since being discharged and they advised her to come to the emergency department. She states she has had reduced p.o. intake due to nausea and once she arrived to the ED she did vomit a few times. She is also complaining of sub sternal constant chest pressure with no radiation or associated symptoms. She denies any fever or chills. Small bowel obstruction Abdominal CT reviewed and show fluid filled dilated loops concerning for sbo -NPO -IVF -Consult general surgery for evaluation -NGT to LIWS -Pain management with IV morphine Chest pressure, suspected related to sbo, r/o acs -Serial troponin and ekgs HTN, chronic -Resume home medications, monitor vitals, adjust accordingly DVT prophylaxis: SCDs, Heparin Discussed Condition With: patient and rn
[2018-02-28 02:59] LABS: Baso # (Auto) 0.1 th/mm3 (0.0-0.2); Baso % (Auto) 1.2 % (0.0-2.0); Eos # (Auto) 0.3 th/mm3 (0.0-0.4); Eos % (Auto) 3.4 % (0.0-4.0); Hematocrit 43.3 % (35.0-46.0); Hemoglobin 14.2 gm/dL (11.6-15.3); Lymph % (Auto) 10.6 % (9.0-44.0); Mean Corpuscular HGB Conc 32.7 % (32.0-36.0); Mean Corpuscular Hemoglobin 27.7 pg (27.0-34.0); Mean Corpuscular Volume 84.7 fL (80.0-100.0); Mean Platelet Volume 8.9 fL (7.0-11.0); Mono # (Auto) 0.8 th/mm3 (0.0-0.9); Mono % (Auto) 8.4 % (0.0-8.0); Neut # (Auto) 7.2 th/mm3 (1.8-7.7); Neut % (Auto) 76.4 % (16.0-70.0); Platelet Count 224 th/mm3 (150-450); Red Blood Count 5.12 mil/mm3 (4.00-5.30); Red Cell Distribution Width 15.7 % (11.6-17.2); White Blood Count 9.4 th/mm3 (4.0-11.0)
[2018-02-28 03:03] LABS: INR 1.1 Ratio; Prothrombin Time 11.6 sec (9.8-11.6)
[2018-02-28 03:36] LABS: Alanine Aminotransferase 24 U/L (10-53); Albumin 2.8 g/dL (3.4-5.0); Alkaline Phosphatase 97 U/L (45-117); Anion Gap 7 meq/L (5-15); Aspartate Aminotransferase 17 U/L (15-37); Blood Urea Nitrogen 17 mg/dL (7-18); Carbon Dioxide 25.2 meq/L (21.0-32.0); Chloride 108 meq/L (98-107); Glomerular Filtration Rate 57 mL/min (>89); Glucose,Random 122 mg/dL (74-106); Magnesium 2.1 mg/dL (1.5-2.5); Phosphorus 3.2 mg/dL (2.5-4.9); Potassium 3.5 meq/L (3.5-5.1); Sodium 140 meq/L (136-145); Total Protein 5.9 g/dL (6.4-8.2)
[2018-02-28] MEDS: Heparin - SQ 10,000 UNITS/ML Vial SQ SCH ×2 (03:52→12:01)
[2018-02-28] MEDS: Pantoprazole Inj 40 MG Vial IV.PUSH SCH ×2 (03:52→12:01)
[2018-02-28] MEDS: KCL 20 mEq/D5W/NaCl 0.45% Inj 1,000 ML IV.CONT SCH ×5 (04:04→18:57)
--- NOTE | 2018-02-28 11:39 | FL ---
EXAM DATE: 02/28/2018 11:35 AM EDT AGE/SEX: 77 years / Female INDICATIONS: R/o obstruction. CLINICAL DATA: This is the patient's initial encounter. Patient reports that signs and symptoms have been present for 3 days and indicates a pain score of 0/10. MEDICAL/SURGICAL HISTORY: None. . bladder prolapse surgery 10 years ago. Stomach tumor removed 02-19-18, attached to bowel per pt. COMPARISON: No prior exams available for comparison. 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 There are surgical susana over the midline. A transvenous pacer is par tially visualized. Vascular calcifications are present. There is a small to moderate hiatal hernia. The Stomach is grossly unremarkable. Examination of the small bowel demonstrates normal mucosal pattern involving the jejunum and ileum. There is no evidence of mass or obstruction. No intraluminal filling defects are identified. Small bowel transit time is normal at 45 minutes. Fluoroscopy of the abdomen and terminal ileum demonstrat es no abnormality. CONCLUSION: 1. Small to moderate-sized hiatal hernia. 2. No evidence of obstruction. There is rapid transit of contrast into the colon at 45 minutes. 3. Nonobstructive bowel gas pattern most characteristic of an ileus. Electronically signed by: Kayden Mackay MD 02/28/2018 11:38 AM EDT
[2018-02-28] MEDS ORDERED: Diatrizoate Meglum/Diatrizoate Sod Liq 120 ML Bottle (for RAD diag) PO ONE (11:41)
[2018-02-28] MEDS: Carvedilol 12.5 MG Tablet PO SCH (12:01)
[2018-02-28] MEDS: Senna/Docusate Sodium 8.6/50 MG Tablet PO SCH (12:01)
--- NOTE | 2018-02-28 14:05 | ECG ---
Date Performed: 02/28/2018 Time Performed: 09:26:28 PTAGE: 77 years EKG: ELECTRONIC VENTRICULAR PACEMAKER ABNORMAL RHYTHM ECG No significant change from prior elect rocardiogram. PREVIOUS TRACING : 11/26/2017 12.15 DOCTOR: Lionel Rocha Interpretating Date/Time 02/28/2018 14:03:42
--- NOTE | 2018-02-28 14:31 | P.PNIM ---
Subjective Interval history: Abdominal symptoms improved. Imaging show resolution of SBO. Complaint of diarrhea which started after oral contrast was ingested. Physical Exam Vital signs: Vital Signs 02/27/18 20:00 02/28/18 00:00 02/28/18 04:00 Temperature 96.1 F L 97.8 F 98.6 F Pulse Rate 76 68 68 Respiratory Rate 18 18 18 Blood Pressure 168/74 H 173/79 H 180/75 H Pulse Oximetry 98 98 97 02/28/18 08:00 02/28/18 12:00 Temperature 98.6 F 97.7 F Pulse Rate 71 79 Respiratory Rate 14 14 Blood Pressure 168/72 H 169/66 H Pulse Oximetry 95 98 Intake & Output 02/27/18 02/28/18 02/28/18 18:59 06:59 18:59 Intake Total 1999 Balance 1999 Intake: IV 1999 D5W/1/2NS + KCL 20 mEq Inj 1999 000 ML @ 100 mls/hr IV.CONT . Q10H [facility] Rx#:[id number] Narrative: GENERAL: NAD, A&Ox3 HEAD: Normocephalic. NECK: Supple, trachea midline. No lymphadenopathy. EYES: No scleral icterus. No injection or drainage. CARDIOVASCULAR: Regular rate and rhythm without murmurs, gallops, or rubs. RESPIRATORY: Breath sounds equal bilaterally. No accessory muscle use. GASTROINTESTINAL: Abdomen soft, non-tender, nondistended. Hypoactive bowel sounds. MUSCULOSKELETAL: No cyanosis, or edema. SKIN: Warm and dry. NEURO: No focal neurological deficits. Results - Labs CBC & Chem 7: 02/28/18 02:31 02/28/18 02:31 Laboratory Results - last 24 hr 02/28/18 02/28/18 02/28/18 02:31 02:31 02:31 WBC 9.4 RBC 5.12 Hgb 14.2 D Hct 43.3 MCV 84.7 MCH 27.7 MCHC 32.7 RDW 15.7 Plt Count 224 MPV 8.9 Neut % (Auto) 76.4 H Lymph % (Auto) 10.6 [place] % (Auto) 8.4 H Eos % (Auto) 3.4 Baso % (Auto) 1.2 Neut # (Auto) 7.2 Lymph # (Auto) 1.0 [place] # (Auto) 0.8 Eos # (Auto) 0.3 Baso # (Auto) 0.1 WBC Differential . Differential Comment Auto diff final PT 11.6 INR 1.1 Sodium 140 Potassium 3.5 Chloride 108 H Carbon Dioxide 25.2 Anion Gap 7 BUN 17 Creatinine 0.95 Estimated GFR 57 L Random Glucose 122 H Calcium 8.0 L D Phosphorus 3.2 Magnesium 2.1 Total Bilirubin 0.6 AST 17 ALT 24 Alkaline Phosphatase 97 Troponin I Total Protein 5.9 L D Albumin 2.8 L D 02/28/18 02:31 WBC RBC Hgb Hct MCV MCH MCHC RDW Plt Count MPV Neut % (Auto) Lymph % (Auto) [place] % (Auto) Eos % (Auto) Baso % (Auto) Neut # (Auto) Lymph # (Auto) [place] # (Auto) Eos # (Auto) Baso # (Auto) WBC Differential Differential Comment PT INR Sodium Potassium Chloride Carbon Dioxide Anion Gap BUN Creatinine Estimated GFR Random Glucose Calcium Phosphorus Magnesium Total Bilirubin AST ALT Alkaline Phosphatase Troponin I 0.03 Total Protein Albumin - Imaging Impressions Small Bowel X-Ray 02/28/18 00:00 CONCLUSION: Assessment and Plan - Plan 77 y/o female admitted with a small bowel obstruction Small bowel obstruction Improved based on imaging Start clear liquid diet and advance as tolerated Diarrhea Related to contrast If this persists will test for C. Diff Chest pressure Likely was GI related No further symptoms Negative work up HTN, chronic Home treatments continued Follow BP DVT prophylaxis SCDs, Heparin
--- NOTE | 2018-02-28 18:36 | MB ---
cc: Kj Benton MD DATE: 02/28/2018 CHIEF COMPLAINT: Headache and vomiting. HISTORY OF PRESENT ILLNESS: The patient is a 77-year-old female with history of carcinoid tumor, status post diagnostic laparoscopy, exploratory laparotomy with small bowel resection on 02/18/2018. The patient was noted to be presenting in the [facility] with complaints of severe headache and fatigue. She was evaluated in the emergency department and upon exam of her throat, developed some vomiting and NG tube was then placed and a CT scan was obtained questioning a possible obstruction. The patient is denying any abdominal pain. She states she is having regular bowel movements, 1 per day, and denied any vomiting at home, but did have mild nausea. She further denies any fevers or chills. PAST MEDICAL HISTORY: Arthritis, carcinoid, hypercholesteremia, hypertension, jaw fracture, peripheral vascular disease, renal insufficiency, stroke. PAST SURGICAL HISTORY: Cataracts, hysterectomy, tonsillectomy, right arm fracture, CABG, diagnostic laparoscopy, exploratory laparotomy, small bowel resection. SOCIAL HISTORY: Denies smoking, ETOH or IVDA. ALLERGIES: AMLODIPINE, LISINOPRIL, STATIN. MEDICATIONS: See EMR FAMILY HISTORY: Denies diabetes or hypertension. REVIEW OF SYSTEMS: GENERAL: Complains of malaise and fatigue. HEENT: Denies eye pain. Complains of headache. NECK: Denies swelling or pain. LUNGS: Denies cough or wheeze. HEART: Denies palpitations or complaint of chest pressure. ABDOMEN: Denies abdominal pain. Complains of vomiting. GENITOURINARY: Denies dysuria or hematuria. ENDOCRINE: Denies polyuria or polydipsia. INTEGUMENT: Denies any mouth sores or lesions. PHYSICAL EXAMINATION: GENERAL: The patient in no acute distress. VITAL SIGNS: Temperature 96.1, pulse 76, respirations 18, blood pressure 168/74, saturation 98%. HEENT: Pupils equal, round, reactive. NECK: Supple. Trachea is midline. LUNGS: Clear bilateral expansion. HEART: S1, S2 regular. ABDOMEN: Soft, nontender and nondistended. EXTREMITIES: Warm and well perfused. NEUROLOGIC: GCS of 15. 5/5 motor in all extremities. PSYCHIATRIC: Appropriate mood, appropriate judgment. LABORATORY AND DIAGNOSTIC DATA: WBC 9.4, hemoglobin 14.2, hematocrit 43.3, platelets 224. Sodium 140, potassium 3.5, chloride 108, BUN 17, creatinine 0.9, glucose 122, calcium 8, AST 17, ALT 24, alkaline phosphatase 97, albumin 2.8. INR 1.1. CT reviewed by myself showing minimally dilated loops of small bowel, questionable ileus, possible obstruction, hiatal hernia, bilateral inguinal hernias, spinal stenosis, tiny ventral hernia. ASSESSMENT: The patient is a 77-year-old female who presents with headache, developed nausea and vomiting after examination of oropharynx, questionable ileus versus obstruction. PLAN: After full workup, the patient with above admitting issues, at this point, the patient needs to be IV fluids, pain control, n.p.o. The patient has currently NG tube in place with minimal output. The patient's NG tube noted to have fallen out since being on the floor. Recommend evaluation with small bowel follow through. If this is negative, the patient can have regular soft diet and possible discharge home. If this confirms the questionable obstruction, then we will treat appropriately with bowel rest. Discussed with the patient in detail and discussed with staff. MD MARLENE Evans/BAM , 06:15 PM , 06:24 PM
--- NOTE | 2018-02-28 19:03 | P.DS ---
Date of admission: 02/27/18 20:52 Primary care physician: UNKNOWN Brief History from admission: 77 y/o female with a history of a resection of a carcinoid tumor on February [address] Benton, hld, arthritis and pvd presented to the ed with complaints of nausea , vomiting,generalized malaise and headache that started today. She states she does have home health since being discharged and they advised her to come to the emergency department. She states she has had reduced p.o. intake due to nausea and once she arrived to the ED she did vomit a few times. She is also complaining of sub sternal constant chest pressure with no radiation or associated symptoms. She denies any fever or chills. DS: Summary Hospital Course: Mrs. Becerra is a 77 year old female. She came into the hospital secondary to abdominal pain which is related to a small bowel obstruction. NPO status, NG tube, and time caused resolution of her symptoms. She had imaging on 02/28/18 which showed resolution of her SBO. Diet was initiated that day and she had tolerance of an advancement of her diet. She is tolerating PO intake at this time without symptoms. She has been cleared by surgery for discharge and wishes to discharge to home. Medically stable and clear for discharge to home today. - Time Spent with Patient Total time spent providing and/or coordinating discharge services: Exam Vital signs: Vital Signs 02/27/18 20:00 02/28/18 00:00 02/28/18 04:00 Temperature 96.1 F L 97.8 F 98.6 F Pulse Rate 76 68 68 Respiratory Rate 18 18 18 Blood Pressure 168/74 H 173/79 H 180/75 H Pulse Oximetry 98 98 97 02/28/18 08:00 02/28/18 12:00 02/28/18 14:30 Temperature 98.6 F 97.7 F Pulse Rate 71 79 Respiratory Rate 14 14 Blood Pressure 168/72 H 169/66 H Pulse Oximetry 95 98 98 02/28/18 16:00 02/28/18 18:23 Temperature 98.7 F Pulse Rate 64 Respiratory Rate 14 Blood Pressure 187/78 H Pulse Oximetry 96 96 Intake & Output 02/28/18 02/28/18 03/01/18 06:59 18:59 06:59 Intake Total 2024 Balance 2024 Intake: IV 2024 D5W/1/2NS + KCL 20 mEq Inj , 2024 000 ML @ 100 mls/hr IV.CONT . Q10H [facility] [place] Rx#:[id number] Other: # Voids 3 Results Procedures completed during hospitalization: none Labs on day of discharge: Labs from last 24 hours 02/28/18 02/28/18 02/28/18 02:31 02:31 02:31 WBC RBC Hgb Hct MCV MCH MCHC RDW Plt Count MPV Neut % (Auto) Lymph % (Auto) [place] % (Auto) Eos % (Auto) Baso % (Auto) Neut # (Auto) Lymph # (Auto) [place] # (Auto) Eos # (Auto) Baso # (Auto) WBC Differential Differential Comment PT 11.6 INR 1.1 Sodium 140 Potassium 3.5 Chloride 108 H Carbon Dioxide 25.2 Anion Gap 7 BUN 17 Creatinine 0.95 Estimated GFR 57 L Random Glucose 122 H Calcium 8.0 L D Phosphorus 3.2 Magnesium 2.1 Total Bilirubin 0.6 AST 17 ALT 24 Alkaline Phosphatase 97 Troponin I 0.03 Total Protein 5.9 L D Albumin 2.8 L D 02/28/18 02:31 WBC 9.4 RBC 5.12 Hgb 14.2 D Hct 43.3 MCV 84.7 MCH 27.7 MCHC 32.7 RDW 15.7 Plt Count 224 MPV 8.9 Neut % (Auto) 76.4 H Lymph % (Auto) 10.6 [place] % (Auto) 8.4 H Eos % (Auto) 3.4 Baso % (Auto) 1.2 Neut # (Auto) 7.2 Lymph # (Auto) 1.0 [place] # (Auto) 0.8 Eos # (Auto) 0.3 Baso # (Auto) 0.1 WBC Differential . Differential Comment Auto diff final PT INR Sodium Potassium Chloride Carbon Dioxide Anion Gap BUN Creatinine Estimated GFR Random Glucose Calcium Phosphorus Magnesium Total Bilirubin AST ALT Alkaline Phosphatase Troponin I Total Protein Albumin - Impressions ITS Impressions Small Bowel X-Ray 02/28/18 00:00 CONCLUSION: Discharge Plan - Discharge Disposition Patient Disposition: 01 Discharge Home - Discharge Condition Condition: Stable - Discharge Order Discharge Orders: Discharge Order (Routine); Ordered 02/28/18 Ordered By: Aris Powell - Discharge Details Anticipated Discharge Date: 02/28/18 - Physicians Team Primary Care Provider: UNKNOWN, Attending Provider: Aris Powell Other Providers: Kj Benton MD ; Surgeons,[facility] - Rxs /Orders / Referrals /Forms Prescriptions: Continue aspirin [Aspir-81] 81 mg Tablet,Delayed Release (Dr/Ec) 81 mg PO DAILY bumetanide 1 mg Tablet 1 mg PO DAILY carvedilol 12.5 mg Tablet 12.5 mg PO BID cholecalciferol (vitamin D3) [Vitamin D3] 5,000 unit Tablet 5,000 unit PO DAILY coQ10 (ubiquinol) 100 mg Capsule 100 mg PO DAILY doxazosin 2 mg Tablet 2 mg PO DAILY magnesium 250 mg Tablet 500 mg PO DAILY nifedipine 60 mg Tablet Extended Release 60 mg PO 0500 omega 1-euc-pqp-fish oil [Fish Oil] 1,000 mg (120 mg-180 mg) Capsule 1 cap PO DAILY potassium 99 mg Tablet 40 meq PO DAILY Referrals: UNKNOWN, [Primary Care Provider] - See Instructions
[2018-02-28 20:33] VITALS: BP 177/81; PULSE 91; RESP 18; TEMP 98; O2SAT 99
--- NOTE | 2018-03-01 08:51 | ED ---
HPI General Source: patient Mode of arrival: ambulatory Limitations: no limitations History of Present Illness HPI narrative: nausea vomiting and dizziness as well as weekness for thepast few days. MD complaint: abdominal pain Onset (ago): day(s) (2) Pain Consistency: constant Location: diffuse Severity: mild Quality: cramping Radiation: none Related Data Home Medications Medication Instructions Recorded Confirmed aspirin [Aspir-81] 81 mg PO DAILY 02/15/18 02/27/18 bumetanide 1 mg PO DAILY 02/15/18 02/27/18 carvedilol 12.5 mg PO BID 02/15/18 02/27/18 cholecalciferol (vitamin D3) 5,000 unit PO DAILY 02/15/18 02/27/18 [Vitamin D3] coQ10 (ubiquinol) 100 mg PO DAILY 02/15/18 02/27/18 doxazosin 2 mg PO DAILY 02/15/18 02/27/18 magnesium 500 mg PO DAILY 02/15/18 02/27/18 nifedipine 60 mg PO 0500 02/15/18 02/27/18 omega 4-[id number]-gyp-fish oil [Fish Oil] 1 cap PO DAILY 02/15/18 02/27/18 potassium 40 meq PO DAILY 02/15/18 02/27/18 Allergies Allergy/AdvReac Type Severity Reaction Status Date / Time amlodipine Allergy Severe Anaphylaxis Verified 02/19/18 12:40 lisinopril Allergy Severe Anaphylaxis Verified 02/19/18 12:40 Yqqejtu-Llo-Xlt Reductase Allergy Severe Cough Verified 02/19/18 12:40 Inhibitor Review of Systems Except as stated in HPI: all other systems reviewed are negative PMFSH History History Provided By: Patient Social History Social History Substance History: No History of Abuse Second Hand Smoke Exposure: No Smoking Status: Never smoker How Often Do You Have a Drink Containing Alcohol: Monthly or less Exam Narrative Exam Narrative: GENERAL: Alert and oriented in no distress SKIN: Focused skin assessment warm/dry. HEAD: Atraumatic. Normocephalic. EYES: Pupils equal and round. No scleral icterus. No injection or drainage. ENT: No nasal bleeding or discharge. Mucous membranes pink and moist. NECK: Trachea midline. No JVD. CARDIOVASCULAR: Regular rate and rhythm. No murmur appreciated. RESPIRATORY: No accessory muscle use. Clear to auscultation. Breath sounds equal bilaterally. GASTROINTESTINAL: Abdomen soft, diffusely tender, nondistended. Hepatic and splenic margins not palpable. MUSCULOSKELETAL: No obvious deformities. No clubbing. No cyanosis. No edema. NEUROLOGICAL: Awake and alert. No obvious cranial nerve deficits. Motor grossly within normal limits. Normal speech. PSYCHIATRIC: Appropriate mood and affect; insight and judgment normal. Course Initial Documented Vital Signs Temperature 96.1 F L 02/27/18 20:00 Pulse Rate 76 02/27/18 20:00 Respiratory Rate 18 02/27/18 20:00 Blood Pressure 168/74 H 02/27/18 20:00 Pulse Oximetry 98 02/27/18 20:00 Last Documented Vital Signs Temperature 98.0 F 02/28/18 20:00 Pulse Rate 91 H 02/28/18 20:00 Respiratory Rate 18 02/28/18 20:00 Blood Pressure 177/81 H 02/28/18 20:00 Pulse Oximetry 99 02/28/18 20:00 Medical Decision Making [facility] Narrative Medical decision making narrative: Patient with SBO. Transferred to [facility] for surgical consultation. Lab Data Lab results reviewed: Yes I reviewed the patient's lab results. Result diagrams: 02/28/18 02:31 02/28/18 02:31 Lab Results 02/28/18 02/28/18 02/28/18 Range/Units 02:31 02:31 02:31 WBC 9.4 (4.0-11.0) th/mm3 RBC 5.12 (4.00-5.30) mil/mm3 Hgb 14.2 D (11.6-15.3) gm/dL Hct 43.3 (35.0-46.0) % MCV 84.7 (80.0-100.0) fL MCH 27.7 (27.0-34.0) pg MCHC 32.7 (32.0-36.0) % RDW 15.7 (11.6-17.2) % Plt Count 224 (150-450) th/mm3 MPV 8.9 (7.0-11.0) fL Neut % (Auto) 76.4 H (16.0-70.0) % Lymph % (Auto) 10.6 (9.0-44.0) % [place] % (Auto) 8.4 H (0.0-8.0) % Eos % (Auto) 3.4 (0.0-4.0) % Baso % (Auto) 1.2 (0.0-2.0) % Neut # (Auto) 7.2 (1.8-7.7) th/mm3 Lymph # (Auto) 1.0 (1.0-4.8) th/mm3 [place] # (Auto) 0.8 (0.0-0.9) th/mm3 Eos # (Auto) 0.3 (0.0-0.4) th/mm3 Baso # (Auto) 0.1 (0.0-0.2) th/mm3 WBC Differential . Differential Comment Auto diff final PT 11.6 (9.8-11.6) sec INR 1.1 Ratio Sodium 140 (136-145) meq/L Potassium 3.5 (3.5-5.1) meq/L Chloride 108 H (98-107) meq/L Carbon Dioxide 25.2 (21.0-32.0) meq/L Anion Gap 7 (5-15) meq/L BUN 17 (7-18) mg/dL Creatinine 0.95 (0.50-1.00) mg/dL Estimated GFR 57 L (>89) mL/min Random Glucose 122 H (74-106) mg/dL Calcium 8.0 L D (8.5-10.1) mg/dL Phosphorus 3.2 (2.5-4.9) mg/dL Magnesium 2.1 (1.5-2.5) mg/dL Total Bilirubin 0.6 (0.2-1.0) mg/dL AST 17 (15-37) U/L ALT 24 (10-53) U/L Alkaline Phosphatase 97 (45-117) U/L Troponin I (0.02-0.05) ng/mL Total Protein 5.9 L D (6.4-8.2) g/dL Albumin 2.8 L D (3.4-5.0) g/dL 02/28/18 Range/Units 02:31 WBC (4.0-11.0) th/mm3 RBC (4.00-5.30) mil/mm3 Hgb (11.6-15.3) gm/dL Hct (35.0-46.0) % MCV (80.0-100.0) fL MCH (27.0-34.0) pg MCHC (32.0-36.0) % RDW (11.6-17.2) % Plt Count (150-450) th/mm3 MPV (7.0-11.0) fL Neut % (Auto) (16.0-70.0) % Lymph % (Auto) (9.0-44.0) % [place] % (Auto) (0.0-8.0) % Eos % (Auto) (0.0-4.0) % Baso % (Auto) (0.0-2.0) % Neut # (Auto) (1.8-7.7) th/mm3 Lymph # (Auto) (1.0-4.8) th/mm3 [place] # (Auto) (0.0-0.9) th/mm3 Eos # (Auto) (0.0-0.4) th/mm3 Baso # (Auto) (0.0-0.2) th/mm3 WBC Differential Differential Comment PT (9.8-11.6) sec INR Ratio Sodium (136-145) meq/L Potassium (3.5-5.1) meq/L Chloride (98-107) meq/L Carbon Dioxide (21.0-32.0) meq/L Anion Gap (5-15) meq/L BUN (7-18) mg/dL Creatinine (0.50-1.00) mg/dL Estimated GFR (>89) mL/min Random Glucose (74-106) mg/dL Calcium (8.5-10.1) mg/dL Phosphorus (2.5-4.9) mg/dL Magnesium (1.5-2.5) mg/dL Total Bilirubin (0.2-1.0) mg/dL AST (15-37) U/L ALT (10-53) U/L Alkaline Phosphatase (45-117) U/L Troponin I 0.03 (0.02-0.05) ng/mL Total Protein (6.4-8.2) g/dL Albumin (3.4-5.0) g/dL Imaging Data Radiologist's impression: Small Bowel X-Ray 02/28/18 00:00 CONCLUSION: 1. Small to moderate-sized hiatal hernia. 2. No evidence of obstruction. There is rapid transit of contrast into the colon at 45 minutes. 3. Nonobstructive bowel gas pattern most characteristic of an ileus. Discharge Plan Discharge Disposition Patient Disposition: 30 Still Patient Discharge Condition Condition: Stable Discharge Order Discharge Orders: Discharge Order (Routine); Ordered 02/28/18 Ordered By: Aris Powell Discharge Details Anticipated Discharge Date: 02/28/18 Diagnosis: Bowel obstruction Physicians Team ED Provider: Eliot Ritchie Primary Care Provider: CHAD, Attending Provider: Aris Powell Other Providers: Kj Benton ; Surgeons,[facility] Post Discharge Care Plan Care Plan Goals: Your Health Problems: Goals to Promote Your Health: * To prevent worsening of your condition * To maintain your health at the optimal level Directions to Meet Your Goals: * Take your medications as prescribed * Follow your dietary instruction * Follow activity as directed * Keep your appointments as scheduled * Take your immunizations and boosters as scheduled * If your symptoms worsen call your PCP * If no PCP go to Urgent Care or Emergency Room Smoking is dangerous to your health. Avoid second hand smoke. You may reach the 24-hour crisis hotline for domestic abuse at . Status ED Status: Admitted Patient
== END 2018-02-28 20:00 | disposition home or self-care (01) ==
LOC: NEDDLT 13:06 → N05 20:52
PROVIDERS: ADMIT Hospitalist; ATTEND Hospitalist